=== PATIENT | male | born 1975 ===

== ENCOUNTER 2020-08-20 08:31 | Outpatient (REF) | payer OTHER, SELFPAY ==
[2020-08-20 12:14] LABS: Free T4 (Free Thyroxine) 1.33 ng/dL (0.71-1.85); Thyroid Stimulating Hormone 2.05 mIU/mL (0.32-4.0)
== END 2020-08-20 08:32 | disposition home or self-care (01) ==
LOC: HO.HMGCLDS 08:31
PROVIDERS: PCP Internal Medicine; Visit Provider Internal Medicine
DX: E03.9 Hypothyroidism, unspecified (principal)
CPT/HCPCS: 84439; 84443

== ENCOUNTER → 2020-09-16 11:45 | Outpatient (BNVA) | payer OTHER, SELFPAY | PROVIDERS: PCP Nurse Practitioner Family; Referring Provider Nurse Practitioner Family; Visit Provider Internal Medicine | DX: Z76.89 Persons encountering health services in other specified circumstances (principal) ==

== ENCOUNTER 2020-10-24 08:07 | Outpatient (REF) | payer OTHER, SELFPAY ==
[2020-10-24 11:55] LABS: Alanine Aminotransferase 40 U/L (0-40); Anion Gap 15 (12-20); Aspartate Amino Transferase 30 U/L (5-37); Blood Urea Nitrogen 20 mg/dL (9-16); Calcium 9.2 mg/dL (8.4-10.2); Carbon Dioxide 27 mmol/L (22-29); Chloride 105 mmol/L (96-108); Cholesterol 137 mg/dL; Estimated Glomerular Filt Rate 53; Glucose Fasting 73 mg/dL (60-99); HDL Cholesterol 43 mg/dL; LDL Cholesterol Calculated 68 mg/dl; Sodium 143 mmol/L (135-145); Triglycerides 134 mg/dL
== END 2020-10-24 08:08 | disposition home or self-care (01) ==
LOC: HO.HMGCLDS 08:07
PROVIDERS: PCP Internal Medicine; Visit Provider Internal Medicine
DX: I10 Essential (primary) hypertension (principal); E78.5 Hyperlipidemia, unspecified
CPT/HCPCS: 36415; 80048; 80061; 84450; 84460

== ENCOUNTER → 2020-11-07 15:03 | Outpatient (BNVA) | payer OTHER, SELFPAY | PROVIDERS: PCP Internal Medicine; Visit Provider Internal Medicine | DX: I25.10 Atherosclerotic heart disease of native coronary artery without angina pectoris (principal); I10 Essential (primary) hypertension; E78.5 Hyperlipidemia, unspecified | CPT/HCPCS: 93005 ==

== ENCOUNTER 2021-02-26 09:02 | Outpatient (REF) | payer OTHER, SELFPAY ==
[2021-02-26 12:11] LABS: Alanine Aminotransferase 33 U/L (0-40); Anion Gap 12 (12-20); Aspartate Amino Transferase 28 U/L (5-37); Blood Urea Nitrogen 19 mg/dL (9-16); Calcium 9.3 mg/dL (8.4-10.2); Carbon Dioxide 28 mmol/L (22-29); Chloride 106 mmol/L (96-108); Cholesterol 121 mg/dL; Estimated Glomerular Filt Rate > 60; Glucose Fasting 88 mg/dL (60-99); HDL Cholesterol 40 mg/dL; LDL Cholesterol Calculated 72 mg/dl; Sodium 142 mmol/L (135-145); Triglycerides 48 mg/dL
== END 2021-02-26 09:03 | disposition home or self-care (01) ==
LOC: HO.HMGCLDS 09:02
PROVIDERS: PCP Internal Medicine; Visit Provider Internal Medicine
DX: E78.5 Hyperlipidemia, unspecified (principal); I10 Essential (primary) hypertension; I25.10 Atherosclerotic heart disease of native coronary artery without angina pectoris
CPT/HCPCS: 36415; 80048; 80061; 84450; 84460

== ENCOUNTER 2021-02-28 10:29 | Outpatient (REF) | payer OTHER, SELFPAY ==
[2021-02-28 14:38] LABS: Free T4 (Free Thyroxine) 1.06 ng/dL (0.71-1.85); Thyroid Stimulating Hormone 4.56 uIU/mL (0.32-4.0)
[2021-03-01 10:07] LABS: Thyroid Peroxidase Antibodies 180 IU/mL (<9)
== END 2021-02-28 10:30 | disposition home or self-care (01) ==
LOC: HO.HMGCLDS 10:29
PROVIDERS: PCP Internal Medicine; Visit Provider Internal Medicine
DX: E03.8 Other specified hypothyroidism (principal); E06.3 Autoimmune thyroiditis
CPT/HCPCS: 36415; 84439; 84443; 86376

== ENCOUNTER → 2021-03-13 12:00 | Outpatient (BNVA) | payer OTHER, SELFPAY | PROVIDERS: PCP Internal Medicine; Visit Provider Internal Medicine ==

== ENCOUNTER 2021-05-30 08:18 | Outpatient (REF) | payer OTHER, SELFPAY ==
[2021-05-30 12:15] LABS: Thyroid Stimulating Hormone 4.31 uIU/mL (0.32-4.0)
== END 2021-05-30 08:19 | disposition home or self-care (01) ==
LOC: HO.HMGCLDS 08:18
PROVIDERS: PCP Internal Medicine; Visit Provider Internal Medicine
DX: E03.8 Other specified hypothyroidism (principal); E06.3 Autoimmune thyroiditis
CPT/HCPCS: 36415; 84439; 84443

== ENCOUNTER 2021-08-07 08:40 | Outpatient (REF) | payer OTHER, SELFPAY ==
[2021-08-07 12:10] LABS: Free T4 (Free Thyroxine) 1.48 ng/dL (0.71-1.85); Thyroid Stimulating Hormone 1.78 uIU/mL (0.32-4.0)
== END 2021-08-07 08:41 | disposition home or self-care (01) ==
LOC: HO.HMGCLDS 08:40
PROVIDERS: PCP Internal Medicine; Visit Provider Internal Medicine
DX: E03.8 Other specified hypothyroidism (principal); E06.3 Autoimmune thyroiditis
CPT/HCPCS: 36415; 84439; 84443

== ENCOUNTER 2021-08-26 09:18 | Outpatient (REF) | payer OTHER, SELFPAY ==
[2021-08-26 11:52] LABS: MANUAL DIFF FLAG NO
[2021-08-26 12:01] LABS: Basophils Percent Auto 0.5 % (0-2); Eosinophils Absolute Auto 0.2 X10*3/uL (0.0-0.4); Eosinophils Percent Auto 3.5 % (0-4); Hematocrit 44.9 % (42.0-52.0); Hemoglobin 14.4 g/dl (14.0-18.0); Imm Gran Abs Auto 0.04 X10*3/uL (0.00-0.03); Imm Gran Pct Auto 0.7 % (0.0-0.4); Lymphocytes Absolute Auto 1.5 X10*3/uL (1.2-4.9); Lymphocytes Percent Auto 25.2 % (20-40); Mean Corpuscular HGB Conc 32.1 g/dl (31.0-36.0); Mean Corpuscular Hemoglobin 29.8 pg (27.0-33.0); Mean Corpuscular Volume 92.8 fL (80.0-98.0); Monocytes Absolute Auto 0.6 X10*3/uL (0.1-1.2); Monocytes Percent Auto 9.4 % (2-11); Neutrophils Absolute Auto 3.7 x10*3/uL (2.0-8.3); Neutrophils Percent Auto 60.7 % (45-73); Platelet Count 128 X10*3/uL (160-400); Red Blood Count 4.84 X10*6/uL (4.60-5.80); Red Cell Distribution Width 13.6 % (11.0-16.0); White Blood Count 6.1 X10*3/uL (4.8-10.8)
[2021-08-26 12:17] LABS: Alanine Aminotransferase 46 U/L (0-40); Anion Gap 12 (12-20); Aspartate Amino Transferase 35 U/L (5-37); Blood Urea Nitrogen 15 mg/dL (9-16); Calcium 8.9 mg/dL (8.4-10.2); Carbon Dioxide 26 mmol/L (22-29); Chloride 106 mmol/L (96-108); Cholesterol 139 mg/dL; Estimated Glomerular Filt Rate > 60; Glucose Fasting 88 mg/dL (60-99); HDL Cholesterol 47 mg/dL; LDL Cholesterol Calculated 81 mg/dl; Potassium 4.2 mmol/L (3.3-5.1); Sodium 140 mmol/L (135-145); Triglycerides 58 mg/dL
[2021-08-26 12:40] LABS: Vitamin D 25-OH Total 38.4 ng/mL (>30)
[2021-08-26 12:43] LABS: Folate 9.2 ng/mL (> or = 4.0); Vitamin B12 724 pg/mL (200-900)
[2021-08-29 13:16] LABS: Vitamin B1 7 nmol/L (8-30)
[2021-08-30 16:42] LABS: Testosterone, Total 702 ng/dL (250-1100)
== END 2021-08-26 09:19 | disposition home or self-care (01) ==
LOC: HO.HMGCLDS 09:18
PROVIDERS: PCP Internal Medicine; Visit Provider Internal Medicine
DX: E78.5 Hyperlipidemia, unspecified (principal); I10 Essential (primary) hypertension; I25.10 Atherosclerotic heart disease of native coronary artery without angina pectoris; E03.8 Other specified hypothyroidism; E06.3 Autoimmune thyroiditis; K50.10 Crohn's disease of large intestine without complications
CPT/HCPCS: 36415; 80048; 80061; 82306; 82607; 82746; 84402; 84403; 84425; 84450; 84460; 85025

== ENCOUNTER → 2021-09-03 13:19 | Outpatient (BNVA) | payer OTHER, SELFPAY | PROVIDERS: PCP Internal Medicine; Visit Provider Internal Medicine ==

== ENCOUNTER 2021-11-25 11:57 | Outpatient (REF) | payer OTHER, SELFPAY ==
[2021-11-27 18:47] LABS: TS Negative Control Passed; TS Panel A 0; TS Panel B 0; TS Positive Control Passed; TSpotTB Negative (Negative)
== END 2021-11-25 11:58 | disposition home or self-care (01) ==
LOC: HO.HMGCLDS 11:57
PROVIDERS: PCP Internal Medicine; Visit Provider Internal Medicine
DX: Z11.1 Encounter for screening for respiratory tuberculosis (principal)
CPT/HCPCS: 36415; 86481

== ENCOUNTER 2021-11-28 09:57 | Day surgery (SDC) | payer OTHER, SELFPAY ==
--- NOTE | 2021-11-27 12:41 | HO.ANESPROP2 ---
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 (Acute) Other and unspecified hyperlipidemia (Acute) Essential hypertension (Acute) Coronary artery calcification seen on CAT scan (Acute) Crohn's disease (Acute) Essential hypertension (Acute) Dyslipidemia (Acute) Past Medical History Medical History (Updated 11/21/21 @ 14:55 by Mariela Huynh RN) Coronary artery calcification seen on CAT scan Crohn's disease Dyslipidemia Essential hypertension GERD (gastroesophageal reflux disease) 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 Other and unspecified hyperlipidemia Pseudofolliculitis barbae Thiamine deficiency Family History Family History Father Myocardial infarction CVD (cardiovascular disease) Mother CVD (cardiovascular disease) Brother Hypothyroidism Substance use disorder Brother Substance use disorder Brother Substance use disorder Sister Substance use disorder Surgical History Surgical History (Updated 09/05/21 @ 10:13 by Samantha Elizabeth MD) H/O wisdom tooth extraction Hx of appendectomy Hx of LASIK Social History Social History Housing: House Alcohol intake: current Alcohol intake frequency: holidays/special occasions only Patient Tobacco Use Status: Never used Tobacco e-Cigarette/Vaping Use: Never Used Advance Directives: No Advance Directives Information Provided: Yes service: No Current occupational status: employed Meds Allergies Allergy/AdvReac Type Severity Reaction Status Date / Time No Known Allergies Allergy Verified 11/21/21 15:34 [No Known Allergies*] Home Medications Medication Instructions Recorded Confirmed Last Taken Type folic acid 1 mg tablet 1 mg PO DAILY 09/16/20 11/21/21 Unknown History calcium carbonate 600 mg calcium 600 mg PO DAILY 09/05/21 11/21/21 Unknown History (1,500 mg) tablet (Calcium) cholecalciferol (vitamin D3) 50 50 mcg PO DAILY 09/05/21 11/21/21 Unknown History mcg (2,000 unit) capsule coenzyme Q10 30 mg capsule (CoQ-10) 100 mg PO DAILY cap 09/05/21 11/21/21 Unknown History mecobalamin (vitamin B12) 1,000 1,000 mcg PO DAILY 09/05/21 11/21/21 Unknown History mcg chewable tablet thiamine HCl (vitamin B1) 100 mg 50 mg PO DAILY 09/05/21 11/21/21 Unknown History tablet Exam Exam Date and Time: November 27, 2021 1241 Pertinent Lab Results Pertinent Lab Results: Laboratory Tests 08/26/21 08/26/21 09:47 09:47 WBC 6.1 Hgb 14.4 Hct 44.9 Plt Count 128 L Sodium 140 Potassium 4.2 Chloride 106 Carbon Dioxide 26 BUN 15 Creatinine 1.15 Narrative Narrative: EKG 10/2020 sinus rhythm at 79/Min; no significant ST-T changes and otherwise unremarkable Assessment and Plan Assessment Anesthesia Assessment: Chart Reviewed Documented by User: George Hunter MD 01/28/22 00:28 [facility], [facility] Past Medical History Medical History (Updated 11/21/21 @ 14:55 by Mariela Huynh RN) Coronary artery calcification seen on CAT scan Crohn's disease Dyslipidemia Essential hypertension GERD (gastroesophageal reflux disease) 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 Other and unspecified hyperlipidemia Pseudofolliculitis barbae Thiamine deficiency Family History Family History Father Myocardial infarction CVD (cardiovascular disease) Mother CVD (cardiovascular disease) Brother Hypothyroidism Substance use disorder Brother Substance use disorder Brother Substance use disorder Sister Substance use disorder Family history of problems with anesthesia: No Surgical History Surgical History (Updated 09/05/21 @ 10:13 by Samantha Elizabeth MD) H/O wisdom tooth extraction Hx of appendectomy Hx of LASIK History of Problems with Anesthesia: No Social History Social History Housing: House Alcohol intake: current Alcohol intake frequency: holidays/special occasions only Patient Tobacco Use Status: Never used Tobacco e-Cigarette/Vaping Use: Never Used Advance Directives: No Advance Directives Information Provided: Yes service: No Current occupational status: employed Meds Allergies Allergy/AdvReac Type Severity Reaction Status Date / Time No Known Allergies Allergy Verified 11/21/21 15:34 [No Known Allergies*] Home Medications Medication Instructions Recorded Confirmed Last Taken Type folic acid 1 mg tablet 1 mg PO DAILY 09/16/20 11/21/21 Unknown History calcium carbonate 600 mg calcium 600 mg PO DAILY 09/05/21 11/21/21 Unknown History (1,500 mg) tablet (Calcium) cholecalciferol (vitamin D3) 50 50 mcg PO DAILY 09/05/21 11/21/21 Unknown History mcg (2,000 unit) capsule coenzyme Q10 30 mg capsule (CoQ-10) 100 mg PO DAILY cap 09/05/21 11/21/21 Unknown History mecobalamin (vitamin B12) 1,000 1,000 mcg PO DAILY 09/05/21 11/21/21 Unknown History mcg chewable tablet thiamine HCl (vitamin B1) 100 mg 50 mg PO DAILY 09/05/21 11/21/21 Unknown History tablet Exam Airway Mallampati Class: II Loose/Missing/Broken Teeth: Yes (Chipped front , bridge , ) Heart: S1 S2 Lungs: b/l breath sounds Assessment and Plan Assessment Anesthesia Assessment: Anesthesia Plan Discussed Final Anesthetic Review Family History of Problems with Anesthesia: No History of Problems with Anesthesia: No NPO: Yes ASA Class: II Final Preanesthetic Review: Meds/Allgs Chart Reviewed, Consent Obtained/Reviewed and Anes Risks/Benef Reviewed Patient Risk: Intermediate Procedure Risk: Intermediate Anesthetic Plan Anesthetic Plan: MAC: Disposition: Standard PACU
[2021-11-28 10:08] VITALS: BP 119/81; PULSE 80; RESP 16; TEMP 36.9; O2SAT 99; BMI 24.8
--- NOTE | 2021-11-28 10:32 | MHC.SHP ---
Pre-Procedural Eval Section A Date of Service: 11/28/21 The patient is an INPATIENT: No Changes since office visit: No Cold of Flu in the past 2 weeks, No New Medical Problems, No Changes in Medication and No Patient answered all questions The History & Physical has been completed within 30 days and I have reviewed it.: Yes Section B Chief Complaint: crohns Allergies: Allergies Allergy/AdvReac Type Severity Reaction Status Date / Time No Known Allergies Allergy Verified 11/21/21 15:34 [No Known Allergies*] Plan I have reviewed the history and physical and performed a pertinent physical examination on my patient. No changes have occurred unless specified.
[2021-11-28 11:12] VITALS: BP 103/65; PULSE 83; RESP 18; TEMP 36.2; O2SAT 98
--- NOTE | 2021-11-28 11:23 | P.BOP_ITS ---
Brief Operative Note Date of Service: 11/28/21 Pre-op diagnosis: crohns Post-op diagnosis: same Procedure: colonoscopy Surgeon: Braulio Rosario Anesthesia: MAC Was an Accounts Receivable Administrator used for this Procedure?: No Estimated blood loss (mL): 5 Pathology: other (bxs ti and colon) Condition: stable Disposition: PACU
[2021-11-28 11:27] VITALS: BP 110/75; PULSE 75; RESP 16; TEMP 36.2; O2SAT 97
--- NOTE | 2021-11-28 13:08 | OP_ITS ---
SURGEON: Braulio Rosario MD INDICATIONS: Crohn disease. PREOPERATIVE DIAGNOSIS: POSTOPERATIVE DIAGNOSIS: PROCEDURE PERFORMED: Colonoscopy to the terminal ileum with biopsy. ESTIMATED BLOOD LOSS: COMPLICATIONS: ANESTHESIA: ASSISTANTS: SPECIMENS: MEDICATIONS: Monitored anesthesia care. DESCRIPTION OF PROCEDURE: History and physical were performed. The risks and benefits of the procedure were explained to the patient. Informed consent was obtained. The patient was placed in the left lateral decubitus position. A digital rectal exam was performed and was found to be normal. The Olympus pediatric video colonoscope was introduced into the rectum and advanced to the cecum without difficulty. The cecum was identified by transillumination, palpation, and identification of ileocecal valve. Examination was performed. The scope was removed. He tolerated the procedure well and was taken to recovery in stable condition. FINDINGS: The terminal ileum was examined and appeared normal. Approximately 20 cm was examined without any evidence of active Crohn disease. Biopsies were obtained from the terminal ileum. The colonic mucosa appeared within normal limits without evidence of masses or ulcers. There was no evidence of endoscopic activity of Crohn disease. The mucosa appeared normal with some minor nonspecific erythema in the rectum. Retroflexed examination was normal. There was mild sigmoid diverticulosis. IMPRESSION: Normal colonoscopy. RECOMMENDATION: Follow up the biopsy results. Screening colonoscopy is recommended in 10 years for average risk individuals. MD KARINE Chan/RICARDO / [id number] MTDD
== END 2021-11-28 12:25 | disposition home or self-care (01) ==
PROVIDERS: PCP Internal Medicine; Visit Provider Internal Medicine Gastroenterology
PROC: 0DJD8ZZ Inspection of Lower Intestinal Tract, Via Natural or Artificial Opening Endoscopic (ICD-10-PCS; CPT 45378; principal; 2021-11-28 11:20)
DX: K50.119 Crohn's disease of large intestine with unspecified complications (principal); K57.30 Diverticulosis of large intestine without perforation or abscess without bleeding; E06.3 Autoimmune thyroiditis; E03.9 Hypothyroidism, unspecified; I10 Essential (primary) hypertension; I25.10 Atherosclerotic heart disease of native coronary artery without angina pectoris; D69.3 Immune thrombocytopenic purpura; Z79.899 Other long term (current) drug therapy
CPT/HCPCS: 45380; 88305

== ENCOUNTER 2022-10-09 11:11 | Outpatient (REF) | payer OTHER, SELFPAY ==
[2022-10-09 15:02] LABS: Alanine Aminotransferase 21 U/L (0-40); Anion Gap 13 (12-20); Aspartate Amino Transferase 23 U/L (5-37); Blood Urea Nitrogen 14 mg/dL (9-16); Calcium 8.9 mg/dL (8.4-10.2); Carbon Dioxide 26 mmol/L (22-29); Chloride 107 mmol/L (96-108); Cholesterol 134 mg/dL; Estimated Glomerular Filt Rate > 60; Free T4 (Free Thyroxine) 1.17 ng/dL (0.71-1.85); Glucose Fasting 87 mg/dL (60-99); HDL Cholesterol 26 mg/dL; LDL Cholesterol Calculated 89 mg/dl; Potassium 4.1 mmol/L (3.3-5.1); Sodium 142 mmol/L (135-145); Thyroid Stimulating Hormone 6.07 uIU/mL (0.32-4.0); Triglycerides 99 mg/dL; Vitamin D 25-OH Total 33.4 ng/mL (>30)
[2022-10-09 15:05] LABS: Folate 12.3 ng/mL (> or = 4.0); Vitamin B12 1380 pg/mL (200-900)
[2022-10-14 13:33] LABS: Vitamin B1 28 nmol/L (8-30)
== END 2022-10-09 11:12 | disposition home or self-care (01) ==
LOC: HO.HMGCLDS 11:11
PROVIDERS: PCP Internal Medicine; Visit Provider Internal Medicine
DX: E06.3 Autoimmune thyroiditis (principal); E51.9 Thiamine deficiency, unspecified; E78.5 Hyperlipidemia, unspecified; I10 Essential (primary) hypertension; I25.10 Atherosclerotic heart disease of native coronary artery without angina pectoris; K50.10 Crohn's disease of large intestine without complications; E03.8 Other specified hypothyroidism
CPT/HCPCS: 36415; 80048; 80061; 82306; 82607; 82746; 84425; 84439; 84443; 84450; 84460

== ENCOUNTER 2022-10-14 13:57 | Outpatient (REF) | payer OTHER, SELFPAY ==
[2022-10-14 16:38] LABS: MANUAL DIFF FLAG NO
[2022-10-14 17:09] LABS: Basophils Absolute Auto 0.1 X10*3/uL (0.0-0.2); Basophils Percent Auto 0.7 % (0-2); Eosinophils Absolute Auto 0.1 X10*3/uL (0.0-0.4); Eosinophils Percent Auto 1.1 % (0-4); Hematocrit 44.5 % (42.0-52.0); Hemoglobin 14.6 g/dl (14.0-18.0); Imm Gran Pct Auto 1.4 % (0.0-0.4); Lymphocytes Absolute Auto 2.1 X10*3/uL (1.2-4.9); Lymphocytes Percent Auto 29.1 % (20-40); Mean Corpuscular HGB Conc 32.8 g/dl (31.0-36.0); Mean Corpuscular Volume 88.5 fL (80.0-98.0); Mean Platelet Volume 12.5 fL (9.4-12.4); Monocytes Absolute Auto 0.7 X10*3/uL (0.1-1.2); Monocytes Percent Auto 9.8 % (2-11); Neutrophils Absolute Auto 4.2 x10*3/uL (2.0-8.3); Neutrophils Percent Auto 57.9 % (45-73); Platelet Count 145 X10*3/uL (160-400); Red Blood Count 5.03 X10*6/uL (4.60-5.80); Red Cell Distribution Width 12.9 % (11.0-16.0); White Blood Count 7.3 X10*3/uL (4.8-10.8)
== END 2022-10-14 13:58 | disposition home or self-care (01) ==
LOC: HO.HMGCLDS 13:57
PROVIDERS: PCP Internal Medicine; Visit Provider Internal Medicine
DX: D69.3 Immune thrombocytopenic purpura (principal); E06.3 Autoimmune thyroiditis; K50.90 Crohn's disease, unspecified, without complications; E03.8 Other specified hypothyroidism
CPT/HCPCS: 36415; 85025

== ENCOUNTER 2022-12-16 07:59 | Outpatient (REF) | payer OTHER, SELFPAY ==
[2022-12-16 12:51] LABS: Folate 9.4 ng/mL (> or = 4.0); Free T4 (Free Thyroxine) 1.39 ng/dL (0.71-1.85); Thyroid Stimulating Hormone 0.95 uIU/mL (0.32-4.0); Vitamin B12 768 pg/mL (200-900)
[2022-12-17 13:18] LABS: Thyroid Peroxidase Antibodies 182 IU/mL (<9)
== END 2022-12-16 08:00 | disposition home or self-care (01) ==
LOC: HO.HMGCLDS 07:59
PROVIDERS: PCP Internal Medicine; Visit Provider Internal Medicine
DX: E03.8 Other specified hypothyroidism (principal); E06.3 Autoimmune thyroiditis; D69.3 Immune thrombocytopenic purpura; K50.90 Crohn's disease, unspecified, without complications
CPT/HCPCS: 36415; 82607; 82746; 84439; 84443; 86376

== ENCOUNTER 2022-12-23 10:15 | Outpatient (REF) | payer OTHER, SELFPAY ==
[2022-12-23 15:40] LABS: Syphilis Screen Nonreactive (Nonreactive)
[2022-12-25 05:41] LABS: HIV AB/AG Nonreactive (Nonreactive); HIV Num 1 0.08 S/CO (0.00-0.99); ~HepC Num1 0.19 S/CO (0.00-0.79); ~Hepatitis C Antibody Nonreactive (Nonreactive)
== END 2022-12-23 10:16 | disposition home or self-care (01) ==
LOC: HO.HMGCLDS 10:15
PROVIDERS: PCP Internal Medicine; Visit Provider Nurse Practitioner Family
DX: Z11.4 Encounter for screening for human immunodeficiency virus [HIV] (principal); Z20.2 Contact with and (suspected) exposure to infections with a predominantly sexual mode of transmission
CPT/HCPCS: 36415; 86780; 86803; 87389

== ENCOUNTER → 2023-04-05 09:52 | Outpatient (BNVA) | payer OTHER, SELFPAY | PROVIDERS: PCP Internal Medicine; Visit Provider Nurse Practitioner Family ==

== ENCOUNTER → 2023-04-09 14:33 | Outpatient (BNVA) | payer OTHER, SELFPAY | PROVIDERS: PCP Internal Medicine; Visit Provider Urology ==

== ENCOUNTER 2023-05-21 09:01 | Outpatient (REF) | payer OTHER, SELFPAY ==
[2023-05-21 11:17] LABS: MANUAL DIFF FLAG NO
[2023-05-21 11:41] LABS: Basophils Percent Auto 0.4 % (0-2); Eosinophils Absolute Auto 0.2 X10*3/uL (0.0-0.4); Eosinophils Percent Auto 2.8 % (0-4); Hematocrit 47.7 % (42.0-52.0); Hemoglobin 15.5 g/dl (14.0-18.0); Imm Gran Abs Auto 0.07 X10*3/uL (0.00-0.03); Imm Gran Pct Auto 0.9 % (0.0-0.4); Lymphocytes Absolute Auto 2.2 X10*3/uL (1.2-4.9); Lymphocytes Percent Auto 28.6 % (20-40); Mean Corpuscular HGB Conc 32.5 g/dl (31.0-36.0); Mean Corpuscular Hemoglobin 29.5 pg (27.0-33.0); Mean Corpuscular Volume 90.9 fL (80.0-98.0); Mean Platelet Volume 12.8 fL (9.4-12.4); Monocytes Absolute Auto 0.7 X10*3/uL (0.1-1.2); Monocytes Percent Auto 9.3 % (2-11); Neutrophils Absolute Auto 4.4 x10*3/uL (2.0-8.3); Platelet Count 144 X10*3/uL (160-400); Red Blood Count 5.25 X10*6/uL (4.60-5.80); Red Cell Distribution Width 12.8 % (11.0-16.0); White Blood Count 7.6 X10*3/uL (4.8-10.8)
[2023-05-21 15:21] LABS: Alanine Aminotransferase 27 U/L (0-40); Anion Gap 14 (12-20); Aspartate Amino Transferase 26 U/L (5-37); Blood Urea Nitrogen 13 mg/dL (9-16); Calcium 9.4 mg/dL (8.4-10.2); Carbon Dioxide 23 mmol/L (22-29); Chloride 108 mmol/L (96-108); Cholesterol 138 mg/dL; Estimated Glomerular Filt Rate > 60; Glucose Fasting 91 mg/dL (60-99); HDL Cholesterol 42 mg/dL; LDL Cholesterol Calculated 85 mg/dl; Potassium 4.1 mmol/L (3.3-5.1); Sodium 141 mmol/L (135-145); Thyroid Stimulating Hormone 1.54 uIU/mL (0.32-4.0); Triglycerides 55 mg/dL; Vitamin D 25-OH Total 44.7 ng/mL (>30)
[2023-05-21 15:45] LABS: Folate 9.9 ng/mL (> or = 4.0); Vitamin B12 816 pg/mL (200-900)
[2023-05-26 15:52] LABS: Vitamin B1 72 nmol/L (8-30)
== END 2023-05-21 09:02 | disposition home or self-care (01) ==
LOC: HO.HMGCLDS 09:01
PROVIDERS: PCP Internal Medicine; Visit Provider Internal Medicine
DX: E51.9 Thiamine deficiency, unspecified (principal); N48.9 Disorder of penis, unspecified; D69.3 Immune thrombocytopenic purpura; E03.8 Other specified hypothyroidism; E06.3 Autoimmune thyroiditis; I10 Essential (primary) hypertension; E78.5 Hyperlipidemia, unspecified; K50.90 Crohn's disease, unspecified, without complications
CPT/HCPCS: 36415; 80048; 80061; 82306; 82607; 82746; 84425; 84439; 84443; 84450; 84460; 85025

== ENCOUNTER 2023-05-27 09:00 | Outpatient (AMB) | payer OTHER, SELFPAY ==
[2023-05-27 09:01] VITALS: BP 136/88; PULSE 83; O2SAT 96; BMI 29.7
--- NOTE | 2023-05-27 09:01 | A.OFFPC_ITS ---
Vital Signs 05/27/23 09:01 Height 5 ft 10 in Weight 207 lb BMI 29.7 BP 136/88 Blood Pressure Location Rt brachial Position Sitting Pulse 83 Pulse Source Pulse Oximeter Pulse Oximetry (%) 96 Oxygen Delivery Method Room Air Intake Visit Reasons: Annual Physical Intake Note: Pt is here today for his PE Allergies No Known Allergies [No Known Allergies*] Allergy (Verified 05/27/23 09:31) Medication List - Last Reconciled 05/27/23 by Samantha Elizabeth MD calcium carbonate (Calcium) 600 mg PO DAILY cholecalciferol (vitamin D3) 50 mcg PO DAILY coenzyme Q10 (Co Q-10) 100 mg PO DAILY folic acid 1 mg PO DAILY levothyroxine (Synthroid) 137 mcg PO DAILY losartan 50 mg PO DAILY magnesium citrate 200 mg PO DAILY omega [id number]-fish oil 500-100-1,000 mg 1 cap PO DAILY rosuvastatin 40 mg PO DAILY selenium 200 mcg PO DAILY thiamine HCl (vitamin B1) 50 mg PO DAILY Tobacco use date assessed: 05/27/23 Dental Screening Dental Screen Date: 05/27/23 Did you have a dental visit in the last 12 months?: No Was dental information given to patient?: Patient has dentist HPI Annual Physical HPI Details 8-year-old male with hypertension, chronic ITP, currently symptomatic, 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 He has been feeling well except for intermittent episodes of lightheadedness usually triggered when he gets up after bending down or with sudden changes in position. This would last several seconds and resolved spontaneously. Denies any accompanying chest pain, no headache, no nausea or palpitations reported. 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 Other and unspecified hyperlipidemia Penile lesion Personal history of COVID-19 Positional lightheadedness Pseudofolliculitis barbae Thiamine deficiency Surgical History H/O wisdom tooth extraction Hx of appendectomy Hx of LASIK Family History Father Myocardial infarction CVD (cardiovascular disease) Mother CVD (cardiovascular disease) Brother Hypothyroidism Substance use disorder Brother Substance use disorder Brother Substance use disorder Sister Substance use disorder Social History Housing: House Alcohol intake: current Alcohol intake frequency: holidays/special occasions only Patient Tobacco Use Status: Never used Tobacco e-Cigarette/Vaping Use: Never Used service: No Current occupational status: employed Sexual orientation: Lesbian/Jeter/Homosexual Cognitive needs: No Hearing needs: No Vision needs: Yes Questionnaire PHQ-9 Over the last 2 weeks, how often have you been bothered by any of the following problems? 1. Little interest or pleasure in doing things: not at all 2. Feeling down, depressed, or hopeless: not at all 3. Trouble falling or staying asleep, or sleeping too much: not at all 4. Feeling tired or having little energy: not at all 5. Poor appetite or overeating: not at all 6. Feeling bad about yourself - or that you are a failure or have let yourself or your family down: not at all 7. Trouble concentrating on things, such as reading the newspaper or watching television: not at all 8. Moving or speaking so slowly that other people could have noticed. Or the opposite - being so fidgety or restless that you have been moving around a lot more than usual: not at all 9. Thoughts that you would be better off or of hurting yourself in some way: not at all Total score: 0 Depression Screening Interpretation: Negative 87780 - PHQ-9 Billing: Yes Source: Developed by Drs. Manuel Rodriguez, Cortney Carl, Davidson Brody and colleagues, with an educational jonathon from [employer]. Thrive Questionnaire Date Thrive assessed: 05/27/23 I am a: Patient What is your living situation today?: I have a steady place to live Within the past 12 months, did the food you bought not last and you didn't have the money to get more?: Never true Within the past 12 months, did you worry whether your food would run out before you got money to buy more?: Never true Do you have trouble paying for medicines?: No Do you have trouble getting transportation to medical appointments?: No Do you have trouble paying your heating and electricity bill?: No Do you have trouble taking care of your child, family member or friend?: No Do you have trouble with day-to-day activities such as bathing, preparing meals, shopping, managing finances, etc.?: No Are you currently unemployed and looking for a job?: No Are you interested in more education?: No AUDIT C Alcohol Use Questionnaire (AUDIT-C) 1. How often do you have a drink containing alcohol?: Monthly or less 2. How many drinks containing alcohol do you have on a typical day when you are drinking?: 1 or 2 3. How often do you have six or more drinks on one occasion?: Never Total Score: 1 LANE-[address] L[address]-7 Date LANE - 7 assessed: 05/27/23 Feeling nervous, anxious, or on edge: 0 = Not at all Not being able to stop or control worryin = Not at all Worrying too much about different things: 0 = Not at all Trouble relaxin = Not at all Being so restless that it is hard to sit still: 0 = Not at all Becoming easily annoyed or irritable: 0 = Not at all Feeling afraid as if something awful might happen: 0 = Not at all Total LANE-7 score (0-4 normal; 5-9 mild; 10-14 moderate; 15-21 severe): 0 Source: Developed by Drs. Manuel Rodriguez, Cortney Carl, Davidson Brody and colleagues, with an educational jonathon from [employer]. LANE-[address] L[address]-7 Assessment Tool: LANE-7 Assessment 21195 Review of Systems Const Denies body aches, Denies chills, Denies fever(s), Denies lethargy, Denies weight gain and Denies weight loss Eyes Reports no additional complaints ENT Reports no additional complaints Card Reports as per HPI, Reports no additional complaints, Denies syncope, Denies irregular heart rhythm and Denies dyspnea Resp Denies cough and Denies dyspnea GI Denies abdominal pain and Denies heartburn Reports as per HPI and Denies change in libido Musc Reports no additional complaints Skin/Breast Denies lesions, Denies rash and Denies unusual bruising Neuro Reports as per HPI, Denies Neuro-related abnormal movements and Denies syncope Psych Reports no additional complaints and Denies change in libido Endo Reports no additional complaints and Denies change in libido Ricky/Lymph Denies easy bleeding and Denies easy bruising Aller/Immun Reports no additional complaints Physical exam (Primary Care) Vital Signs: Last Vital Signs Pulse 83 05/27/23 09:01 BP 136/88 05/27/23 09:01 Pulse Ox 96 05/27/23 09:01 Oxygen Delivery Method Room Air 05/27/23 09:01 BMI result Body Mass Index 29.7 Tobacco/Smoking Status: Tobacco use Status Tobacco use date assessed 05/27/23 05/27/23 09:12 Patient Tobacco Use Status Never used Tobacco 05/27/23 09:12 e-Cigarette/Vaping Use Never Used 05/27/23 09:12 PHQ-9: PHQ-9 Score PHQ-9: Total score 0 05/27/23 09:53 Depression Screening Interpretation: Negative Thrive Assessment: Date of Thrive Assessment Date Thrive assessed 05/27/23 05/27/23 09:12 Const General: cooperative, healthy appearing, no acute distress and alert Orientation/consciousness: patient oriented x3 HENMT Ears: external ears normal General nose exam: Normal external nose present and No nasal discharge present Face and sinus: Yes face symmetric Mouth: Normal oral and palatal mucosa present and moist mucous membranes Eyes General: appearance normal, both eyes and all related structures Neck Neck: Yes full ROM and Yes no lymphadenopathy Thyroid: Thyroid normal Lymphatic: no lymphadenopathy noted Chest Chest palpation & inspection: normal inspection of the chest and normal palpation of entire chest wall Resp Effort & Inspection: normal respiratory effort and able to speak in complete sentences Auscultation: clear to auscultation bilaterally Cardio Jugular venous distension: no JVD Rate: regular rate Rhythm: regular rhythm Heart sounds: S1 normal heart sound present and S2 normal heart sound present GI Inspection: Yes normal to inspection Palpation (GI): Soft to palpation Auscultation: normal bowel sounds General: Yes no CVA tenderness Male General Exam: Yes normal external exam Back/Spine/Pelvis Back: no CVA tenderness and No back tenderness Skin Other: Multiple tattoos all over his body Neuro General: patient oriented x3, gait normal, tone normal, moves all extremities, Normal light touch and pain sensation, no focal motor deficits and CN's II-XI intact bilaterally Gait exam (Neuro): Normal gait present Motor exam (neuro): 5/5 motor strength present throughout Extrem General: Yes normal to inspection, Yes full ROM, Yes no pedal edema and Yes normal gait Psych Appearance: grossly normal and well kempt Mental Status: mental status grossly normal Speech and movement: Normal speech and movement present Affect: normal affect Attitude: cooperative Thought process: Normal thought process present Results Reviewed Results Reviewed: ENTERED: 05/21/[address]: ORDERED: CBC Auto Diff Test Result Flag Reference Site WBC 7.6 4.8-10.8 X10*3/uL RBC 5.25 4.60-5.80 X10*6/uL HGB 15.5 14.0-18.0 g/dl HCT 47.7 42.0-52.0 % MCV 90.9 80.0-98.0 fL MCH 29.5 27.0-33.0 pg MCHC 32.5 31.0-36.0 g/dl RDW 12.8 11.0-16.0 % PLT 144 L 160-400 X10*3/uL MPV 12.8 H 9.4-12.4 fL Neut Pct Auto 58.0 45-73 % ImGran Pct Auto 0.9 H 0.0-0.4 % Lymp Pct Auto 28.6 20-40 % [place] Pct Auto 9.3 2-11 % Eos Pct Auto 2.8 0-4 % Baso Pct Auto 0.4 0-2 % NRBC Pct Auto 0.0 0.0-0.2 /100WBC ANC Neut Abs # 4.4 2.0-8.3 x10*3/uL ImGran Abs Auto 0.07 H 0.00-0.03 X10*3/uL Lymph Abs Auto 2.2 1.2-4.9 X10*3/uL [place] Abs Auto 0.7 0.1-1.2 X10*3/uL Eos Abs Auto 0.2 0.0-0.4 X10*3/uL Baso Abs Auto 0.0 0.0-0.2 X10*3/uL NRBC Abs Auto 0.000 0.0-0.012 X10*3/uL ENTERED: 05/21/23 [facility] : ORDERED: Met Prof Fast, AST, ALT, Lipid Panel, Vitamin D 25-OH, TSH Test Result Flag Reference Site Sodium 141 135-145 mmol/L Potassium 4.1 3.3-5.1 mmol/L CL 108 96-108 mmol/L CO2 23 22-29 mmol/L Gap 14 12-20 BUN 13 9-16 mg/dL Creat 0.92 0.5-1.4 mg/dL EGFR > 60 NOTE: For -[place] individuals, multiply the result by 1.210. Chronic Kidney Disease: Estimated GFR < 60 mL/min/1.73m2 Severe Kidney Disease: Estimated GFR < 15 mL/min/1.73m2 FBS 91 60-99 mg/dL CA 9.4 8.4-10.2 mg/dL AST (GOT) 26 5-37 U/L ALT (GPT) 27 0-40 U/L Triglyceride 55 mg/dL Desirable Triglyceride: less than 150 mg/dL Borderline High Triglyceride 150-199 mg/dL High Triglyceride: 200-499 mg/dL Very High Triglyceride: greater than or equal to 5OO mg/dL Chol 138 mg/dL Desirable Cholesterol: less than 200 mg/dL Borderline High Cholesterol: 200-239 mg/dL High Cholesterol: greater than 239 mg/dL LDL Calculated 85 mg/dl Desirable LDL: less than 100 mg/dL Near Optimal/Above Optimal LDL: 110-129 mg/dL Borderline High LDL: 130-159 mg/dL High LDL: 160-189 mg/dL Very High LDL: greater than or equal to 190 mg/dL HDL 42 mg/dL Desirable HDL: greater than 40 mg/dL Note: This HDL assay may give artificially low results in patients with liver disease. Vit D 25-OH Tot 44.7 >30 ng/mL Health Based Reference Values* < 20 ng/mL Deficient 20-30 ng/mL Insufficient > 30 ng/mL Sufficient *Allan RODRIGUEZ. N Engl J Med. 2007;357:266-280 Care must be taken in interpreting Vitamin D results from different laboratories and methodologies. Published data demonstrated that results from patients undergoing hemodialysis may show a negative bias when tested with various automated 25-OH vitamin D assays when compared to LC-MS/MS. When testing samples from patients whose predominant form of Vitamin D is Vitamin D2, such as patients receiving Vitamin D2 supplementation, results that are subtherapeutic should be confirmed with another method such as LC-MS/MS. TSH 3rd Gen. 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 Continue with current medication. Reinforced importance of following a low sodium diet, getting regular exercise, and lowering stress levels. (4) Dyslipidemia: Code(s): E78.5 - Hyperlipidemia, unspecified Plan: Reviewed recent fasting lipid profile with patient with levels within normal limits . Continue with rosuvastatin 40 mg daily and [place] 3 fatty acid supplements , in addition to adherence to low-cholesterol diet and regular exercise, at least 30 minutes 3 to 4 times a week. Advised patient to make healthy food choices, eat more fruits, vegetables, whole grains, wild caught fish and low-fat dairy. Limit amount of meat and fried or fatty food products, as well as processed foods and fast foods. Follow-up scheduled with repeat fasting lipid panel in 6 months. (5) Crohn's disease: Comment: Sees Dr. Rosario Code(s): K50.90 - Crohn's disease, unspecified, without complications Qualifiers: Digestive disease complication type: without complication Gastrointestinal tract location: large intestine Qualified Code(s): K50.10 - Crohn's disease of large intestine without complications Plan: Stable and currently symptomatic, followed by Dr. Rosario Orders: Orders PT Evaluation and Treatment 05/27/23 R42 - Dizziness and giddiness Alanine Aminotransferase 6 Months E03.8 - Other specified hypothyroidism, E06.3 - Autoimmune thyroiditis, E51.9 - Thiamine deficiency, unspecified, E78.5 - Hyperlipidemia, unspecified, I10 - Essential (primary) hypertension, I25.10 - Atherosclerotic heart disease of [place] coronary artery without angina pectoris, K50.90 - Crohn's disease, unspecified, without complications Aspartate Amino Transferase 6 Months E03.8 - Other specified hypothyroidism, E06.3 - Autoimmune thyroiditis, E51.9 - Thiamine deficiency, unspecified, E78.5 - Hyperlipidemia, unspecified, I10 - Essential (primary) hypertension, I25.10 - Atherosclerotic heart disease of [place] coronary artery without angina pectoris, K50.90 - Crohn's disease, unspecified, without complications Vitamin B12 and Folate 6 Months E03.8 - Other specified hypothyroidism, E06.3 - Autoimmune thyroiditis, E51.9 - Thiamine deficiency, unspecified, E78.5 - Hyperlipidemia, unspecified, I10 - Essential (primary) hypertension, I25.10 - Atherosclerotic heart disease of [place] coronary artery without angina pectoris, K50.90 - Crohn's disease, unspecified, without complications Basic Metabolic Panel Fasting 6 Months E03.8 - Other specified hypothyroidism, E06.3 - Autoimmune thyroiditis, E51.9 - Thiamine deficiency, unspecified, E78.5 - Hyperlipidemia, unspecified, I10 - Essential (primary) hypertension, I25.10 - Atherosclerotic heart disease of [place] coronary artery without angina pectoris, K50.90 - Crohn's disease, unspecified, without complications Lipid Panel 6 Months E03.8 - Other specified hypothyroidism, E06.3 - Autoimmune thyroiditis, E51.9 - Thiamine deficiency, unspecified, E78.5 - Hyperlipidemia, unspecified, I10 - Essential (primary) hypertension, I25.10 - Atherosclerotic heart disease of [place] coronary artery without angina pectoris, K50.90 - Croh n's disease, unspecified, without complications Magnesium 6 Months E03.8 - Other specified hypothyroidism, E06.3 - Autoimmune thyroiditis, E51.9 - Thiamine deficiency, unspecified, E78.5 - Hyperlipidemia, unspecified, I10 - Essential (primary) hypertension, I25.10 - Atherosclerotic heart disease of [place] coronary artery without angina pectoris, K50.90 - Crohn's disease, unspecified, without complications Free T4 (Free Thyroxine) 6 Months E03.8 - Other specified hypothyroidism, E03.9 - Hypothyroidism, unspecified, E06.3 - Autoimmune thyroiditis, E51.9 - Thiamine deficiency, unspecified, E78.5 - Hyperlipidemia, unspecified, I10 - Essential (primary) hypertension, I25.10 - Atherosclerotic heart disease of [place] coronary artery without angina pectoris, K50.90 - Crohn's disease, unspecified, without complications Thyroid Stimulating Hormone 6 Months E03.8 - Other specified hypothyroidism, E06.3 - Autoimmune thyroiditis, E51.9 - Thiamine deficiency, unspecified, E78.5 - Hyperlipidemia, unspecified, I10 - Essential (primary) hypertension, I25.10 - Atherosclerotic heart disease of [place] coronary artery without angina pectoris, K50.90 - Crohn's disease, unspecified, without complications Vitamin B1 6 Months E03.8 - Other specified hypothyroidism, E06.3 - Autoimmune thyroiditis, E51.9 - Thiamine deficiency, unspecified, E78.5 - Hyperlipidemia, unspecified, I10 - Essential (primary) hypertension, I25.10 - Atherosclerotic heart disease of [place] coronary artery without angina pectoris, K50.90 - Crohn's disease, unspecified, without complications Vitamin D 25-OH Total 6 Months E03.8 - Other specified hypothyroidism, E06.3 - Autoimmune thyroiditis, E51.9 - Thiamine deficiency, unspecified, E78.5 - Hyperlipidemia, unspecified, I10 - Essential (primary) hypertension, I25.10 - Atherosclerotic heart disease of [place] coronary artery without angina pectoris, K50.90 - Crohn's disease, unspecified, without complications Coding Level of Care Code Est Pt Prev Care 40-64y([id number]) Diagnoses Positional lightheadedness R42 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
== END 2023-05-27 10:30 | disposition home or self-care (01) ==
PROVIDERS: PCP Internal Medicine; Visit Provider Internal Medicine
DX: Z00.00 Encounter for general adult medical examination without abnormal findings (principal); E03.8 Other specified hypothyroidism; E06.3 Autoimmune thyroiditis; I10 Essential (primary) hypertension; K50.10 Crohn's disease of large intestine without complications; R42 Dizziness and giddiness; E78.5 Hyperlipidemia, unspecified
CPT/HCPCS: 99396

== ENCOUNTER 2023-06-03 11:46 | Outpatient (REF) | payer OTHER, SELFPAY ==
[2023-06-03 11:56] VITALS: BP 145/99; PULSE 84; RESP 16; TEMP 36.8; O2SAT 97; BMI 29.4
--- NOTE | 2023-06-03 14:13 | W.PM.OPN ---
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 Iatrogenic urethrocutaneous fistula as a result at the level of penile sulcus. Here for repair. Is aware of risks for possible re-formation. Procedure: After informed consent was verified the patient was brought to the operating room and placed in a supine position. Anesthesia was administered per protocol. The patient was prepped and draped in a sterile fashion. Safety pause time-out was performed. Penis was prepped with Betadine and draped. Local anesthetic was infiltrated around edges of the urethrocutaneous fistula. Repair was performed following guidelines from [place]. Essentially this is an inversion of urethrocutaneous fistula without amputation and multilayered closure. A 4-0 Vicryl suture was passed down the urethra and externalized out of the fistula tract. Using 4-0 Vicryl the edges of the fistula tract were approximated on the external side. Using this suture as a tractor sharp dissection was performed around the fistula tract creating a dissected tunnel. Dissection was taken releasing inflamed tissue from the fistula tract. Once the base of the fistula tract had been reached the fistula tract with inverted and pulled toward the meatal opening. Interrupted 4-0 Vicryl was were then used to create a layer across the inverted tunnel. A 2nd layer was then used to close tissue above the urethral layer. Skin was closed with interrupted Vicryl. Patient informed not to get the area wet for 2 days. Pathology: [] Drains: []
== END 2023-06-03 11:47 | disposition home or self-care (01) ==
LOC: HO.MS 11:46
PROVIDERS: PCP Internal Medicine; Visit Provider Urology
PROC: (CPT 54440; principal; 2023-06-03 12:10)
DX: N36.0 Urethral fistula (principal)
CPT/HCPCS: 53520

== ENCOUNTER → 2023-06-03 11:46 | Outpatient (BNV) | payer OTHER, SELFPAY | PROVIDERS: PCP Internal Medicine; Visit Provider Urology | DX: N36.0 Urethral fistula (principal) | CPT/HCPCS: 53520 ==

== ENCOUNTER 2023-07-09 13:21 | Outpatient (AMB) | payer OTHER, SELFPAY ==
--- NOTE | 2023-07-09 13:25 | MHC.OFFVIS ---
Intake Intake Visit Reasons: one month (fistula repair) Intake Note: pt here for post op followup meds - sulfamethoxazole pharm - [facility] allergies - NKA Allergies environmental allergies Adverse Reaction (Verified 07/09/23 13:27) Itchy Eyes HPI HPI Comments History of Present Illness Details Toney is a very pleasant male. He is a patient of Dr. Elizabeth. 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 Other and unspecified hyperlipidemia Essential hypertension Coronary artery calcification seen on CAT scan Pseudofolliculitis barbae GERD (gastroesophageal reflux disease) Crohn's disease Dyslipidemia Surgical History Hx of LASIK H/O wisdom tooth extraction Hx of appendectomy Family History Father Myocardial infarction CVD (cardiovascular disease) Mother CVD (cardiovascular disease) Brother Hypothyroidism Substance use disorder Brother Substance use disorder Brother Substance use disorder Sister Substance use disorder Social History Housing: House Alcohol intake: current Alcohol intake frequency: holidays/special occasions only Patient Tobacco Use Status: Never used Tobacco e-Cigarette/Vaping Use: Never Used service: No Current occupational status: employed Sexual orientation: Lesbian/Jeter/Homosexual Cognitive needs: No Hearing needs: No Vision needs: Yes Review of Systems Const Denies chills and Denies fever(s) Card Reports no additional complaints and Denies syncope Resp Denies cough GI Denies abdominal pain and Denies heartburn Reports as per HPI and Denies change in libido Neuro Denies syncope Psych Denies change in libido Endo Denies change in libido Physical Exam Const General: cooperative, healthy appearing, comfortable and no acute distress Orientation/consciousness: patient oriented x3 HEENT Face and sinus: Yes normal facial exam Mouth: moist mucous membranes Neck Neck: Yes normal visual inspection, Yes full ROM and Yes trachea midline Chest Chest palpation & inspection: normal inspection of the chest Resp Effort & Inspection: normal respiratory effort, able to speak in complete sentences and no respiratory distress GI Inspection: Yes normal to inspection Back/Spine/Pelvis Cervical Spine: normal cervical lordosis Thoracic/Lumbar Spine: thoracic and lumbar spine normal to inspection Skin General skin exam: no rashes or lesions noted Neuro General: patient oriented x3, gait normal, tone normal and moves all extremities Extrem General: Yes normal to inspection and Yes capillary refill normal Assessment & Plan Assessment & Plan (1) Urethrocutaneous fistula: Code(s): N36.0 - Urethral fistula Plan P.r.n. Patient Instructions: Imaging studies, laboratory and physical exam results were discussed and reviewed in detail. No major barriers to patient understanding were identified. An opportunity to ask questions regarding the treatment plan was provided. All questions were answered. The patient expressed understanding and agreement with the above treatment plan. The patient is aware they should contact our office by phone for worsening of their current condition or the appearance of new urologic symptoms. Compliance is encouraged with any medications and followup testing that is ordered. It is a privilege to participate in the urologic care of your patient. If you have any questions or concerns regarding treatment for the above conditions, or other urologic issues, please do not hesitate to contact me. The office telephone contact is [phone]. This note is constructed using voice recognition software. While every effort has been made to ensure accuracy molecular biology professor errors may have been included. Yours sincerely, Dr Dennis Rojas MD, [facility] - Urology Providers of Expert, Compassionate Care for the Genitourinary System Coding Level of Care Code Est Pt Level 3 (69548) Diagnoses Urethrocutaneous fistula N36.0
== END 2023-07-09 14:09 | disposition home or self-care (01) ==
PROVIDERS: PCP Internal Medicine; Visit Provider Urology
DX: N36.0 Urethral fistula (principal)
CPT/HCPCS: 99024

== ENCOUNTER → 2023-07-09 13:21 | Outpatient (BNVA) | payer OTHER, SELFPAY | PROVIDERS: PCP Internal Medicine; Visit Provider Urology ==

== ENCOUNTER 2023-12-01 10:17 | Outpatient (REF) | payer OTHER, SELFPAY ==
[2023-12-01 13:43] LABS: Alanine Aminotransferase 33 U/L (0-40); Anion Gap 10 (12-20); Aspartate Amino Transferase 37 U/L (5-37); Blood Urea Nitrogen 14 mg/dL (9-16); Calcium 9.1 mg/dL (8.4-10.2); Carbon Dioxide 27 mmol/L (22-29); Chloride 109 mmol/L (96-108); Cholesterol 128 mg/dL (<200); Estimated Glomerular Filt Rate > 60; Glucose Fasting 91 mg/dL (60-99); HDL Cholesterol 40 mg/dL (>40); LDL Cholesterol Calculated 75 mg/dL (<100); Magnesium 2.3 mg/dL (1.6-2.6); Potassium 3.9 mmol/L (3.3-5.1); Sodium 142 mmol/L (135-145); Triglycerides 67 mg/dL (<150)
[2023-12-01 14:02] LABS: Free T4 (Free Thyroxine) 1.02 ng/dL (0.71-1.85); Thyroid Stimulating Hormone 5.11 uIU/mL (0.32-4.0); Vitamin D 25-OH Total 26.4 ng/mL (>30)
[2023-12-01 14:13] LABS: Folate 8.4 ng/mL (> or = 4.0); Vitamin B12 629 pg/mL (200-900)
[2023-12-07 15:18] LABS: Vitamin B1 8 nmol/L (8-30)
== END 2023-12-01 10:18 | disposition home or self-care (01) ==
LOC: HO.HMGCLDS 10:17
PROVIDERS: PCP Internal Medicine; Visit Provider Internal Medicine
DX: E51.9 Thiamine deficiency, unspecified (principal); E03.8 Other specified hypothyroidism; E06.3 Autoimmune thyroiditis; I10 Essential (primary) hypertension; I25.10 Atherosclerotic heart disease of native coronary artery without angina pectoris; E78.5 Hyperlipidemia, unspecified; K50.90 Crohn's disease, unspecified, without complications
CPT/HCPCS: 36415; 80048; 80061; 82306; 82607; 82746; 83735; 84425; 84439; 84443; 84450; 84460

== ENCOUNTER 2023-12-02 09:46 | Outpatient (AMB) | payer OTHER, SELFPAY ==
--- NOTE | 2023-12-02 10:17 | A.OFFPC_ITS ---
Vital Signs 12/02/23 10:18 Height 5 ft 10 in Weight 208 lb BMI 29.8 BP 122/72 Blood Pressure Location Lt brachial Position Sitting Pulse 86 Pulse Source Pulse Oximeter Pulse Oximetry (%) 96 Oxygen Delivery Method Room Air Intake Visit Reasons: 6 month fu Intake Note: Pt is here today for his 6 months f/u Allergies environmental allergies Adverse Reaction (Verified 12/02/23 16:39) Itchy Eyes Medication List - Last Reconciled 12/02/23 by Samantha Elizabeth MD cholecalciferol (vitamin D3) 50 mcg PO DAILY cholecalciferol (vitamin D3) 1,250 mcg PO QWEEK 3 months losartan 50 mg PO DAILY mupirocin 2% 1 appl topical BID 5 days rosuvastatin 40 mg PO DAILY Synthroid (levothyroxine) 150 mcg PO DAILY NS Tobacco use date assessed: 12/02/23 Dental Screening Dental Screen Date: 12/02/23 Did you have a dental visit in the last 12 months?: Yes Did you have a dental problem in the last 6 months where you did not have access to dental care?: No Was dental information given to patient?: Patient has dentist HPI 6 month fu HPI Details 48-year-old male here today for his foll ow-up. He has acquired hypothyroidism currently on Synthroid 137 mcg daily. Recent TSH was mildly elevated with normal free T4. Patient however complains of feeling very tired all the time and unable to lose weight despite exercising and following recommended diet. He also has hyperlipidemia currently on rosuvastatin 40 mg daily, with last fasting lipids within normal limits. Takes losartan 50 mg daily for blood pressure control. Complains of painful cracks in external nares which has been present now for the last several days. The patient thinks that it might be caused by him wearing a mask at work all the time. His recent fasting labs also showed presence of low vitamin-D level, even with taking cholecalciferol 50 mcg daily. He has chronic ITP, latest CBC showing low platelet count , currently asymptomatic. 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 Other and unspecified hyperlipidemia Essential hypertension Coronary artery calcification seen on CAT scan Pseudofolliculitis barbae GERD (gastroesophageal reflux disease) Crohn's disease Dyslipidemia Surgical History Hx of LASIK H/O wisdom tooth extraction Hx of appendectomy Family History Father Myocardial infarction CVD (cardiovascular disease) Mother CVD (cardiovascular disease) Brother Hypothyroidism Substance use disorder Brother Substance use disorder Brother Substance use disorder Sister Substance use disorder Social History Housing: House Alcohol intake: current Alcohol intake frequency: holidays/special occasions only Patient Tobacco Use Status: Never used Tobacco e-Cigarette/Vaping Use: Never Used service: No Current occupational status: employed Sexual orientation: Lesbian/Jeter/Homosexual Cognitive needs: No Hearing needs: No Vision needs: Yes Questionnaire Thrive Questionnaire Date Thrive assessed: 05/27/23 I am a: Patient What is your living situation today?: I have a steady place to live Within the past 12 months, did the food you bought not last and you didn't have the money to get more?: Never true Within the past 12 months, did you worry whether your food would run out before you got money to buy more?: Never true Please select the resources that you would like help with: None THRIVE Score: 0 AUDIT C Alcohol Use Questionnaire (AUDIT-C) 1. How often do you have a drink containing alcohol?: Never 2. How many drinks containing alcohol do you have on a typical day when you are drinking?: 1 or 2 3. How often do you have six or more drinks on one occasion?: Never Total Score: 0 LANE-[address] L[address]-7 Date LANE - 7 assessed: 05/27/23 Feeling nervous, anxious, or on edge: 0 = Not at all Not being able to stop or control worryin = Not at all Worrying too much about different things: 0 = Not at all Trouble relaxin = Not at all Being so restless that it is hard to sit still: 0 = Not at all Becoming easily annoyed or irritable: 0 = Not at all Feeling afraid as if something awful might happen: 0 = Not at all Total LANE-7 score (0-4 normal; 5-9 mild; 10-14 moderate; 15-21 severe): 0 Source: Developed by Drs. Manuel Rodriguez, Cortney Carl, Davidson Brody and colleagues, with an educational jonathon from [employer]. Review of Systems Const Denies body aches, Denies chills, Denies fever(s) and Denies weight loss Eyes Reports no additional complaints ENT Reports no additional complaints Card Denies syncope, Denies irregular heart rhythm and Denies dyspnea Resp Denies cough and Denies dyspnea GI Denies abdominal pain and Denies heartburn Musc Reports no additional complaints Skin/Breast Reports as per HPI, Denies rash and Denies unusual bruising Neuro Denies syncope Endo Reports no additional complaints Ricky/Lymph Denies easy bleeding and Denies easy bruising Aller/Immun Reports no additional complaints Physical exam (Primary Care) Vital Signs: Last Vital Signs Pulse 86 12/02/23 10:18 BP 122/72 12/02/23 10:18 Pulse Ox 96 12/02/23 10:18 Oxygen Delivery Method Room Air 12/02/23 10:18 BMI result Body Mass Index 29.8 Tobacco/Smoking Status: Tobacco use Status Tobacco use date assessed 12/02/23 12/02/23 10:22 Patient Tobacco Use Status Never used Tobacco 12/02/23 10:22 e-Cigarette/Vaping Use Never Used 12/02/23 10:22 Thrive Assessment: Date of Thrive Assessment Date Thrive assessed 05/27/23 12/02/23 10:22 Const General: cooperative, healthy appearing, no acute distress and alert Orientation/consciousness: patient oriented x3 HENMT Ears: external ears normal General nose exam: Normal external nose present and No nasal discharge present Face and sinus: Yes face symmetric Mouth: Normal oral and palatal mucosa present and moist mucous membranes Eyes General: appearance normal, both eyes and all related structures Neck Neck: Yes full ROM and Yes no lymphadenopathy Thyroid: Thyroid normal (Nonpalpable) Lymphatic: no lymphadenopathy noted Resp Effort & Inspection: normal respiratory effort and able to speak in complete sentences Auscultation: clear to auscultation bilaterally Cardio Rate: regular rate Rhythm: regular rhythm Heart sounds: S1 normal heart sound present and S2 normal heart sound present GI Inspection: Yes normal to inspection Palpation (GI): Soft to palpation Auscultation: normal bowel sounds Skin Other: Multiple tattoos all over his body Neuro General: patient oriented x3, gait normal, tone normal, moves all extremities, no focal motor deficits and CN's II-XI intact bilaterally Gait exam (Neuro): Normal gait present Extrem General: Yes normal to inspection, Yes full ROM, Yes no pedal edema and Yes normal gait Assessment and Plan Assessment & Plan (1) 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 Lab ordered for thyroid peroxidase antibody and free T3 (2) Crohn's disease: Comment: Sees Dr. Rosario Code(s): K50.90 - Crohn's disease, unspecified, without complications Qualifiers: Digestive disease complication type: without complication Gastrointestinal tract location: large intestine Qualified Code(s): K50.10 - Crohn's disease of large intestine without complications Plan: Check another CBC level (3) Chronic ITP (idiopathic thrombocytopenia): Comment: Currently being seen at [facility] office by Dr. Kristy Meadows Code(s): D69.3 - Immune thrombocytopenic purpura Plan: Currently symptomatic, will check CBC (4) Thiamine deficiency: Code(s): E51.9 - Thiamine deficiency, unspecified Plan: Thiamine level still pending (5) Dyslipidemia: Code(s): E78.5 - Hyperlipidemia, unspecified Plan: Fasting lipids are within normal limits, continue with current dose of rosuvastatin 40 mg daily, reinforced importance of following recommended diet and getting regular exercise. (6) Fatigue: Code(s): R53.83 - Other fatigue Qualifiers: Fatigue type: chronic, unspecified Qualified Code(s): R53.82 - Chronic fatigue, unspecified Plan: Will check thyroid peroxidase antibody, free T3, CBC. His vitamin B12 is within normal limits, vitamin-D is low, prescription sent for cholecalciferol 06748 units per capsule to take once a week for the next 3 months, and once finished taking prescription to continue taking [id number] vitamin-D 3 at 2000 units daily (7) Vitamin D deficiency: Code(s): E55.9 - Vitamin D deficiency, unspecified Plan: prescription sent for cholecalciferol 20773 units per capsule to take once a week for the next 3 months, and once finished taking prescription to continue taking [id number]-[id number] vitamin-D 3 at 2000 units daily Orders: Orders Thyroid Peroxidase Antibodies Today E03.8 - Other specified hypothyroidism, E06.3 - Autoimmune thyroiditis, K50.90 - Crohn's disease, unspecified, without complications, R53.83 - Other fatigue Triiodothyronine T3 Free Today E03.8 - Other specified hypothyroidism, E06.3 - Autoimmune thyroiditis, K50.90 - Crohn's disease, unspecified, without complications, R53.83 - Other fatigue Complete Blood Count Auto Diff Today E03.8 - Other specified hypothyroidism, E06.3 - Autoimmune thyroiditis, K50.90 - Crohn's disease, unspecified, without complications, R53.83 - Other fatigue Medications: New Synthroid (levothyroxine) 150 mcg PO DAILY 30 tabs 5RF NS mupirocin 2% 1 appl topical BID 5 days 15 grams 0RF cholecalciferol (vitamin D3) 1,250 mcg PO QWEEK 3 months 13 caps 0RF Refilled rosuvastatin 40 mg PO DAILY 90 tabs 4RF losartan 50 mg PO DAILY 90 tabs 4RF Discontinued levothyroxine (Synthroid) PAU, no substitutions , take 1 tablet every day , and take 1 and a half tablet on wednesday Discontinued Reason: Doctor's Order 137 mcg PO DAILY 30 days 30 tabs 12RF E03.8 - Other specified hypothyroidism, E06.3 - Autoimmune thyroiditis Coding Level of Care Code Est Pt Level 4 (25671) Diagnoses 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
[2023-12-02 10:18] VITALS: BP 122/72; PULSE 86; O2SAT 96; BMI 29.8
== END 2023-12-02 10:53 | disposition home or self-care (01) ==
PROVIDERS: PCP Internal Medicine; Visit Provider Internal Medicine
DX: E03.8 Other specified hypothyroidism (principal); E06.3 Autoimmune thyroiditis; K50.10 Crohn's disease of large intestine without complications; D69.3 Immune thrombocytopenic purpura; E51.9 Thiamine deficiency, unspecified; E78.5 Hyperlipidemia, unspecified; R53.82 Chronic fatigue, unspecified; E55.9 Vitamin D deficiency, unspecified
CPT/HCPCS: 99214

== ENCOUNTER 2023-12-02 10:54 | Outpatient (REF) | payer OTHER, SELFPAY ==
[2023-12-02 13:02] LABS: MANUAL DIFF FLAG NO
[2023-12-02 13:23] LABS: Basophils Percent Auto 0.6 % (0-2); Eosinophils Absolute Auto 0.2 X10*3/uL (0.0-0.4); Eosinophils Percent Auto 2.4 % (0-4); Hematocrit 41.2 % (42.0-52.0); Hemoglobin 13.8 g/dl (14.0-18.0); Imm Gran Abs Auto 0.03 X10*3/uL (0.00-0.03); Imm Gran Pct Auto 0.4 % (0.0-0.4); Lymphocytes Absolute Auto 2.2 X10*3/uL (1.2-4.9); Lymphocytes Percent Auto 33.2 % (20-40); Mean Corpuscular HGB Conc 33.5 g/dl (31.0-36.0); Mean Corpuscular Hemoglobin 30.2 pg (27.0-33.0); Mean Corpuscular Volume 90.2 fL (80.0-98.0); Mean Platelet Volume 12.7 fL (9.4-12.4); Monocytes Absolute Auto 0.7 X10*3/uL (0.1-1.2); Monocytes Percent Auto 9.7 % (2-11); Neutrophils Absolute Auto 3.6 x10*3/uL (2.0-8.3); Neutrophils Percent Auto 53.7 % (45-73); Platelet Count 138 X10*3/uL (160-400); Red Blood Count 4.57 X10*6/uL (4.60-5.80); Red Cell Distribution Width 13.1 % (11.0-16.0); White Blood Count 6.7 X10*3/uL (4.8-10.8)
[2023-12-03 08:03] LABS: Triiodothyronine T3 Free 3.6 pg/mL (2.3-4.2)
[2023-12-03 11:03] LABS: Thyroid Peroxidase Antibodies 95 IU/mL (<9)
== END 2023-12-02 10:55 | disposition home or self-care (01) ==
LOC: HO.HMGCLDS 10:54
PROVIDERS: PCP Internal Medicine; Visit Provider Internal Medicine
DX: E03.8 Other specified hypothyroidism (principal); E06.3 Autoimmune thyroiditis; K50.90 Crohn's disease, unspecified, without complications; R53.83 Other fatigue
CPT/HCPCS: 36415; 84481; 85025; 86376

== ENCOUNTER 2024-03-07 06:45 | Outpatient (REF) | payer OTHER, SELFPAY ==
[2024-03-07 10:33] LABS: MANUAL DIFF FLAG NO
[2024-03-07 10:42] LABS: Basophils Percent Auto 0.6 % (0-2); Eosinophils Absolute Auto 0.2 X10*3/uL (0.0-0.4); Eosinophils Percent Auto 3.1 % (0-4); Hematocrit 41.7 % (42.0-52.0); Hemoglobin 13.6 g/dl (14.0-18.0); Imm Gran Abs Auto 0.02 X10*3/uL (0.00-0.03); Imm Gran Pct Auto 0.3 % (0.0-0.4); Lymphocytes Absolute Auto 2.4 X10*3/uL (1.2-4.9); Lymphocytes Percent Auto 37.2 % (20-40); Mean Corpuscular HGB Conc 32.6 g/dl (31.0-36.0); Mean Corpuscular Hemoglobin 29.4 pg (27.0-33.0); Mean Corpuscular Volume 90.3 fL (80.0-98.0); Mean Platelet Volume 13.3 fL (9.4-12.4); Monocytes Absolute Auto 0.7 X10*3/uL (0.1-1.2); Monocytes Percent Auto 10.2 % (2-11); Neutrophils Absolute Auto 3.1 x10*3/uL (2.0-8.3); Neutrophils Percent Auto 48.6 % (45-73); Platelet Count 121 X10*3/uL (160-400); Red Blood Count 4.62 X10*6/uL (4.60-5.80); Red Cell Distribution Width 12.6 % (11.0-16.0); White Blood Count 6.5 X10*3/uL (4.8-10.8)
[2024-03-07 11:12] LABS: Iron 67 mcg/dL (45-160); Percent Iron Saturation 27 % (15-50); Total Iron Binding Capacity 247 mcg/dL (228-428); Unsaturated Iron Binding 180 ug/dL
[2024-03-07 11:23] LABS: Free T4 (Free Thyroxine) 1.15 ng/dL (0.71-1.85); Thyroid Stimulating Hormone 3.76 uIU/mL (0.32-4.0)
[2024-03-08 18:13] LABS: Thyroid Peroxidase Antibodies 155 IU/mL (<9)
== END 2024-03-07 06:46 | disposition home or self-care (01) ==
LOC: HO.HMGCLDS 06:45
PROVIDERS: PCP Internal Medicine; Visit Provider Internal Medicine
DX: R53.82 Chronic fatigue, unspecified (principal); D69.3 Immune thrombocytopenic purpura; E03.8 Other specified hypothyroidism; E06.3 Autoimmune thyroiditis; K50.10 Crohn's disease of large intestine without complications
CPT/HCPCS: 36415; 83540; 84439; 84443; 85025; 86376

== ENCOUNTER 2024-05-25 08:09 | Outpatient (AMB) | payer OTHER, SELFPAY ==
[2024-05-25 08:13] VITALS: BP 114/74; PULSE 88; O2SAT 98; BMI 26.9
--- NOTE | 2024-05-25 08:13 | A.OFFPC_ITS ---
Vital Signs 05/25/24 08:13 Height 5 ft 10 in Weight 187 lb 4 oz BMI 26.9 BP 114/74 Blood Pressure Location Rt brachial Position Sitting Pulse 88 Pulse Source Pulse Oximeter Pulse Oximetry (%) 98 Oxygen Delivery Method Room Air Intake Visit Reasons: PE Intake Note: Patient is here today for his annual physical Allergies environmental allergies Adverse Reaction (Verified 05/25/24 08:21) Itchy Eyes Medication List - Last Reconciled 05/25/24 by Samantha Elizabeth MD cholecalciferol (vitamin D3) 50 mcg PO DAILY ferrous sulfate 325 mg PO DAILY losartan 50 mg PO DAILY rosuvastatin 40 mg PO DAILY semaglutide (weight loss) (Wegovy) 0.5 mg subcut QWEEK Synthroid (levothyroxine) 150 mcg PO DAILY NS Tobacco use date assessed: 05/25/24 Dental Screening Dental Screen Date: 05/25/24 Did you have a dental visit in the last 12 months?: Yes Did you have a dental problem in the last 6 months where you did not have access to dental care?: No Was dental information given to patient?: Patient has dentist HPI PE HPI Details 49-year-old male with hypertension, synchronizer travis ITP, 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 She has been feeling well, with no complaints at present time. He started taking Wegovy approximately 6 weeks, prescribed to him by Dr. Nolasco, and has lost approximately 17 lbs since starting medication, has been feeling well, with no adverse effects noted from it. Has been going to the gym and has been eating a healthy diet. Fell off a ladder in February, injured his left knee but did not get it seen complains now of pain on anterior aspect of his left knee on flexion. 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 Other and unspecified hyperlipidemia Essential hypertension Coronary artery calcification seen on CAT scan Pseudofolliculitis barbae GERD (gastroesophageal reflux disease) Crohn's disease Dyslipidemia Surgical History Hx of LASIK H/O wisdom tooth extraction Hx of appendectomy Family History Father Myocardial infarction CVD (cardiovascular disease) Mother CVD (cardiovascular disease) Brother Hypothyroidism Substance use disorder Brother Substance use disorder Brother Substance use disorder Sister Substance use disorder Social History Housing: House Alcohol intake: current Alcohol intake frequency: holidays/special occasions only Patient Tobacco Use Status: Never used Tobacco e-Cigarette/Vaping Use: Never Used service: No Current occupational status: employed Sexual orientation: Lesbian/Jeter/Homosexual Cognitive needs: No Hearing needs: No Vision needs: Yes Questionnaire PHQ-9 Over the last 2 weeks, how often have you been bothered by any of the following problems? 1. Little interest or pleasure in doing things: not at all 2. Feeling down, depressed, or hopeless: not at all 3. Trouble falling or staying asleep, or sleeping too much: not at all 4. Feeling tired or having little energy: several days 5. Poor appetite or overeating: not at all 6. Feeling bad about yourself - or that you are a failure or have let yourself or your family down: not at all 7. Trouble concentrating on things, such as reading the newspaper or watching television: several days 8. Moving or speaking so slowly that other people could have noticed. Or the opposite - being so fidgety or restless that you have been moving around a lot more than usual: not at all 9. Thoughts that you would be better off or of hurting yourself in some way: not at all Total score: 2 Depression Screening Interpretation: Negative Depression Screening Done: Yes 48859 - PHQ-9 Billing: Yes Source: Developed by Drs. Manuel Rodriguez, Cortney Carl, Davidson Brody and colleagues, with an educational jonathon from [employer]. Thrive Questionnaire Date Thrive assessed: 05/25/24 I am a: Patient What is your living situation today?: I have a steady place to live Within the past 12 months, did the food you bought not last and you didn't have the money to get more?: Never true Within the past 12 months, did you worry whether your food would run out before you got money to buy more?: Never true Do you have trouble paying for medicines?: No Do you have trouble getting transportation to medical appointments?: No Do you have trouble paying your heating and electricity bill?: No Do you have trouble taking care of your child, family member or friend?: I choose not to answer this question Do you have trouble with day-to-day activities such as bathing, preparing meals, shopping, managing finances, etc.?: No Are you currently unemployed and looking for a job?: No Are you interested in more education?: No Please select the resources that you would like help with: Housing/Custodial Currently or been in a relationship where the following occur: No concerns reported THRIVE Score: 0 AUDIT C Alcohol Use Questionnaire (AUDIT-C) 1. How often do you have a drink containing alcohol?: Monthly or less 2. How many drinks containing alcohol do you have on a typical day when you are drinking?: 1 or 2 3. How often do you have six or more drinks on one occasion?: Never Total Score: 1 Score Reviewed/Action Taken: Yes LANE-[address] L[address]-7 Date LANE - 7 assessed: 05/25/24 Feeling nervous, anxious, or on edge: 0 = Not at all Not being able to stop or control worryin = Not at all Worrying too much about different things: 0 = Not at all Trouble relaxin = Not at all Being so restless that it is hard to sit still: 0 = Not at all Becoming easily annoyed or irritable: 0 = Not at all Feeling afraid as if something awful might happen: 0 = Not at all Total LANE-7 score (0-4 normal; 5-9 mild; 10-14 moderate; 15-21 severe): 0 Source: Developed by Drs. Manuel Rodriguez, Cortney Carl, Davidson Brody and colleagues, with an educational jonathon from [employer]. LANE-[address] L[address]-7 Assessment Tool: LANE-7 Assessment 27346 Review of Systems Const Denies body aches, Denies chills, Denies fever(s) and Denies weight loss Eyes Reports blurry vision (With reading) ENT Reports no additional complaints Card Denies chest pain, Denies syncope, Denies irregular heart rhythm and Denies dyspnea Resp Denies cough and Denies dyspnea GI Denies abdominal pain and Denies heartburn Reports no additional complaints Musc Reports no additional complaints Skin/Breast Denies rash and Denies unusual bruising Neuro Denies syncope Psych Reports no additional complaints Endo Reports no additional complaints Ricky/Lymph Denies easy bleeding and Denies easy bruising Aller/Immun Reports no additional complaints Physical exam (Primary Care) Vital Signs: Last Vital Signs Pulse 88 05/25/24 08:13 BP 114/74 05/25/24 08:13 Pulse Ox 98 05/25/24 08:13 Oxygen Delivery Method Room Air 05/25/24 08:13 BMI result Body Mass Index 26.9 Tobacco/Smoking Status: Tobacco use Status Tobacco use date assessed 05/25/24 05/25/24 08:20 Patient Tobacco Use Status Never used Tobacco 05/25/24 08:17 e-Cigarette/Vaping Use Never Used 05/25/24 08:17 PHQ-9: PHQ-9 Score PHQ-9: Total score 2 05/25/24 08:20 Depression Screening Interpretation: Negative Thrive Assessment: Date of Thrive Assessment Date Thrive assessed 05/25/24 05/25/24 08:20 Currently or been in a relationship where the following occur: No concerns reported Const General: cooperative, healthy appearing, no acute distress and alert Orientation/consciousness: patient oriented x3 HENMT Ears: external ears normal General nose exam: Normal external nose present and No nasal discharge present Face and sinus: Yes face symmetric Mouth: Normal oral and palatal mucosa present and moist mucous membranes Eyes General: appearance normal, both eyes and all related structures Neck Neck: Yes full ROM and Yes no lymphadenopathy Thyroid: Thyroid normal (Nonpalpable) Lymphatic: no lymphadenopathy noted Chest Chest palpation & inspection: normal inspection of the chest Resp Effort & Inspection: normal respiratory effort and able to speak in complete sentences Auscultation: clear to auscultation bilaterally Cardio Rate: regular rate Rhythm: regular rhythm Heart sounds: S1 normal heart sound present and S2 normal heart sound present GI Inspection: Yes normal to inspection Palpation (GI): Soft to palpation Auscultation: normal bowel sounds General: Yes no CVA tenderness Male General Exam: Yes normal external exam Back/Spine/Pelvis Back: no CVA tenderness Skin Other: Multiple tattoos all over his body, has a skin tag on left preauricular area Neuro General: patient oriented x3, gait normal, tone normal, moves all extremities, no focal motor deficits and CN's II-XI intact bilaterally Gait exam (Neuro): Normal gait present Extrem General: Yes normal to inspection, Yes full ROM, Yes no pedal edema and Yes normal gait Psych Appearance: grossly normal and well kempt Mental Status: mental status grossly normal Speech and movement: Normal speech and movement present Affect: normal affect Attitude: cooperative Thought process: Normal thought process present Thought content: Normal thought content present Results Reviewed Results Reviewed: Laboratory Tests 12/02/23 03/07/24 10:57 06:52 WBC 6.5 Hgb 13.6 L Hct 41.7 L MCV 90.3 MCH 29.4 RDW 12.6 Plt Count 121 L TSH 3.76 Free T4 1.15 Free T3 3.6 Assessment and Plan Assessment & Plan (1) Annual visit for general adult medical examination with abnormal findings: Code(s): Z00.01 - Encounter for general adult medical examination with abnormal findings Plan: Will check appropriate labs. Recommended dental visit every 6 months and regular eye exams, at least every 2 years. Take adequate calcium in diet and vitamin-D 3 at 2000 IU per cap once a day, in addition to weight-bearing exercises to help maintain good muscle tone and weight control. Instructed to do self testicular exam check for any mass. Up-to-date with all his vaccinations but is due for a tetanus diphtheria booster. Again it at the pharmacy. Colonoscopy screening up-to-date done 11/28/[address] Rosario (2) Dyslipidemia: Code(s): E78.5 - Hyperlipidemia, unspecified Plan: Fasting lipid panel ordered, continue with adherence to healthy eating habits, regular exercises, goes to the gym regularly (3) Crohn's disease: Comment: Sees Dr. Rosario Code(s): K50.90 - Crohn's disease, unspecified, without complications Qualifiers: Digestive disease complication type: without complication Gastrointestinal tract location: large intestine Qualified Code(s): K50.10 - Crohn's disease of large intestine without complications Plan: Asymptomatic, followed by Dr. Rosario, had a negative colonoscopy screening done 11/28/2021 (4) Essential hypertension: Code(s): I10 - Essential (primary) hypertension Plan: Blood pressure at goal of less than 130/80. Continue with losartan 50 mg daily Reinforced importance of following a low sodium diet, getting regular exercise, and lowering stress levels. 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 Kristy Meadows Code(s): D69.3 - Immune thrombocytopenic purpura Plan: Currently asymptomatic, will check CBC and iron profile (7) Vitamin D deficient osteomalacia: Code(s): M83.9 - Adult osteomalacia, unspecified Plan: Will check vitamin-D level (8) Left anterior knee pain: Code(s): M25.562 - Pain in left knee Plan: X-ray of left knee ordered, referred to [facility] per patient request (9) Overweight (BMI 25.0-29.9): Code(s): E66.3 - Overweight Plan: Was started by another provider on Wegovy, now at 0.5 mg subcutaneously given once a week, has been losing weight, and tolerating medication well Orders: Orders Lipid Panel Today D69.3 - Immune thrombocytopenic purpura, E03.8 - Other specified hypothyroidism, E06.3 - Autoimmune thyroiditis, E78.5 - Hyperlipidemia, unspecified, I10 - Essential (primary) hypertension, K50.10 - Crohn's disease of large intestine without complications, M83.9 - Adult osteomalacia, unspecified, Z00.01 - Encounter for general adult medical examination with abnormal findings Vitamin D 25-OH Total Today D69.3 - Immune thrombocytopenic purpura, E03.8 - Other specified hypothyroidism, E06.3 - Autoimmune thyroiditis, E78.5 - Hyperl ipidemia, unspecified, I10 - Essential (primary) hypertension, K50.10 - Crohn's disease of large intestine without complications, M83.9 - Adult osteomalacia, unspecified, Z00.01 - Encounter for general adult medical examination with abnormal findings Thyroid Stimulating Hormone Today D69.3 - Immune thrombocytopenic purpura, E03.8 - Other specified hypothyroidism, E06.3 - Autoimmune thyroiditis, E78.5 - Hyperlipidemia, unspecified, I10 - Essential (primary) hypertension, K50.10 - Crohn's disease of large intestine without complications, M83.9 - Adult osteomalacia, unspecified, Z00.01 - Encounter for general adult medical examination with abnormal findings Free T4 (Free Thyroxine) Today D69.3 - Immune thrombocytopenic purpura, E03.8 - Other specified hypothyroidism, E06.3 - Autoimmune thyroiditis, E78.5 - Hyperlipidemia, unspecified, I10 - Essential (primary) hypertension, K50.10 - Crohn's disease of large intestine without complications, M83.9 - Adult osteomalacia, unspecified, Z00.01 - Encounter for general adult medical examination with abnormal findings IRON PROFILE Today D69.3 - Immune thrombocytopenic purpura, E03.8 - Other specified hypothyroidism, E06.3 - Autoimmune thyroiditis, E78.5 - Hyperlipidemia, unspecified, I10 - Essential (primary) hypertension, K50.10 - Crohn's disease of large intestine without complications, M83.9 - Adult osteomalacia, unspecified, Z00.01 - Encounter for general adult medical examination with abnormal findings Complete Blood Count Auto Diff Today D69.3 - Immune thrombocytopenic purpura, E03.8 - Other specified hypothyroidism, E06.3 - Autoimmune thyroiditis, E78.5 - Hyperlipidemia, unspecified, I10 - Essential (primary) hypertension, K50.10 - Crohn's disease of large intestine without complications, M83.9 - Adult osteomalacia, unspecified, Z00.01 - Encounter for general adult medical examination with abnormal findings Basic Metabolic Panel Fasting Today D69.3 - Immune thrombocytopenic purpura, E03.8 - Other specified hypothyroidism, E06.3 - Autoimmune thyroiditis, E78.5 - Hyperlipidemia, unspecified, I10 - Essential (primary) hypertension, K50.10 - Crohn's disease of large intestine without complications, M83.9 - Adult osteomalacia, unspecified, Z00.01 - Encounter for general adult medical ex amination with abnormal findings XR knee LT 4V Today M25.562 - Pain in left knee Referrals Orthopedics Referral M25.562 - Pain in left knee, Z91.81 - History of falling Medications: Refilled Synthroid (levothyroxine) 150 mcg PO DAILY 30 tabs 5RF NS Coding Level of Care Code Est Pt Prev Care 40-64y(23241) Diagnoses Annual visit for general adult medical examination with abnormal findings Z00.01 Dyslipidemia E78.5 Crohn's disease of large intestine without complication K50.10 Digestive disease complication type: without complication Gastrointestinal tract location: large intestine Essential hypertension I10 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
== END 2024-05-25 08:52 | disposition home or self-care (01) ==
PROVIDERS: PCP Internal Medicine; Visit Provider Internal Medicine
DX: Z00.00 Encounter for general adult medical examination without abnormal findings (principal); K50.10 Crohn's disease of large intestine without complications; D69.3 Immune thrombocytopenic purpura; E78.5 Hyperlipidemia, unspecified; I10 Essential (primary) hypertension; E03.8 Other specified hypothyroidism; E06.3 Autoimmune thyroiditis; M83.9 Adult osteomalacia, unspecified; M25.562 Pain in left knee; E66.3 Overweight
CPT/HCPCS: 99396

== ENCOUNTER 2024-05-25 08:40 | Outpatient (REF) | payer OTHER, SELFPAY ==
--- NOTE | ~2024-05-25 | XR_ITS ---
EXAMINATION: XR KNEE, LEFT CLINICAL INFORMATION: Left knee pain COMPARISON: None available. TECHNIQUE: Four views of the left knee. FINDINGS: No fracture or joint effusion. Alignment is anatomic. There is minimal narrowing of the medial compartment but joint spaces otherwise maintained. No abnormal soft tissue calcification. XR/XR knee LT 4V IMPRESSION: Minimal narrowing of the medial compartment.
[2024-05-25 10:21] LABS: MANUAL DIFF FLAG NO
[2024-05-25 10:29] LABS: Basophils Percent Auto 0.3 % (0-2); Eosinophils Absolute Auto 0.1 X10*3/uL (0.0-0.4); Eosinophils Percent Auto 0.9 % (0-4); Hematocrit 41.7 % (42.0-52.0); Hemoglobin 14.2 g/dl (14.0-18.0); Imm Gran Abs Auto 0.04 X10*3/uL (0.00-0.03); Imm Gran Pct Auto 0.4 % (0.0-0.4); Lymphocytes Absolute Auto 2.2 X10*3/uL (1.2-4.9); Lymphocytes Percent Auto 23.8 % (20-40); Mean Corpuscular HGB Conc 34.1 g/dl (31.0-36.0); Mean Corpuscular Hemoglobin 29.8 pg (27.0-33.0); Mean Corpuscular Volume 87.4 fL (80.0-98.0); Mean Platelet Volume 13.3 fL (9.4-12.4); Monocytes Absolute Auto 0.9 X10*3/uL (0.1-1.2); Monocytes Percent Auto 10.3 % (2-11); Neutrophils Absolute Auto 5.8 x10*3/uL (2.0-8.3); Neutrophils Percent Auto 64.3 % (45-73); Platelet Count 134 X10*3/uL (160-400); Red Blood Count 4.77 X10*6/uL (4.60-5.80); Red Cell Distribution Width 12.6 % (11.0-16.0); White Blood Count 9.1 X10*3/uL (4.8-10.8)
[2024-05-25 11:15] LABS: Anion Gap 11 (12-20); Blood Urea Nitrogen 17 mg/dL (9-16); Carbon Dioxide 26 mmol/L (22-29); Chloride 105 mmol/L (96-108); Cholesterol 101 mg/dL (<200); Estimated Glomerular Filt Rate > 60; Glucose Fasting 81 mg/dL (60-99); HDL Cholesterol 34 mg/dL (>40); Iron 58 mcg/dL (45-160); LDL Cholesterol Calculated 53 mg/dL (<100); Percent Iron Saturation 22 % (15-50); Potassium 3.4 mmol/L (3.3-5.1); Sodium 139 mmol/L (135-145); Total Iron Binding Capacity 261 mcg/dL (228-428); Triglycerides 71 mg/dL (<150); Unsaturated Iron Binding 203 ug/dL
[2024-05-25 11:25] LABS: Thyroid Stimulating Hormone 0.27 uIU/mL (0.32-4.0); Vitamin D 25-OH Total 45.6 ng/mL (>30)
== END 2024-05-25 08:41 | disposition home or self-care (01) ==
LOC: HO.HMGCX 08:40
PROVIDERS: PCP Internal Medicine; Visit Provider Internal Medicine
DX: M25.562 Pain in left knee (principal); M83.9 Adult osteomalacia, unspecified; D69.3 Immune thrombocytopenic purpura; E03.8 Other specified hypothyroidism; E06.3 Autoimmune thyroiditis; I10 Essential (primary) hypertension; K50.10 Crohn's disease of large intestine without complications; E78.5 Hyperlipidemia, unspecified; Z00.01 Encounter for general adult medical examination with abnormal findings
CPT/HCPCS: 36415; 73564; 80048; 80061; 82306; 83540; 84439; 84443; 85025

== ENCOUNTER 2024-06-27 14:52 | Outpatient (REF) | payer OTHER, SELFPAY ==
--- NOTE | ~2024-06-27 | XR_ITS ---
EXAMINATION: XR KNEE AP STANDING 2 views left knee CLINICAL INFORMATION: Pain in the left knee. Pain in the right knee. COMPARISON: X-rays of the left knee May 2024 TECHNIQUE: AP bilateral standing view of the knees was obtained. Additional patella and lateral view of the left knee FINDINGS: Left knee: Patellofemoral compartment: Minimal marginal osteophytes without joint space narrowing indicative of minimal osteoarthritis. Medial and lateral compartments normal. No effusion. Limited right knee AP upright: The medial and lateral compartments are normal surrounding bones and soft tissues are unremarkable. Cannot evaluate patellofemoral compartment XR/XR knee LT 2V IMPRESSION: LEFT KNEE: Minimal osteoarthritis of the patellofemoral compartment. RIGHT KNEE: Unremarkable. Electronically signed by: Bryce Lilly MD 07/12/2024 06:46 AM EDT
--- NOTE | ~2024-06-27 | XR_ITS ---
EXAMINATION: XR KNEE AP STANDING 2 views left knee CLINICAL INFORMATION: Pain in the left knee. Pain in the right knee. COMPARISON: X-rays of the left knee May 2024 TECHNIQUE: AP bilateral standing view of the knees was obtained. Additional patella and lateral view of the left knee FINDINGS: Left knee: Patellofemoral compartment: Minimal marginal osteophytes without joint space narrowing indicative of minimal osteoarthritis. Medial and lateral compartments normal. No effusion. Limited right knee AP upright: The medial and lateral compartments are normal surrounding bones and soft tissues are unremarkable. Cannot evaluate patellofemoral compartment XR/XR knee standing BI IMPRESSION: LEFT KNEE: Minimal osteoarthritis of the patellofemoral compartment. RIGHT KNEE: Unremarkable. Electronically signed by: Bryce Lilly MD 07/12/2024 06:46 AM EDT
== END 2024-06-27 14:53 | disposition home or self-care (01) ==
LOC: HO.XRAY 14:52
PROVIDERS: PCP Internal Medicine; Visit Provider Physician Assistant
DX: M25.562 Pain in left knee (principal); M25.561 Pain in right knee
CPT/HCPCS: 73560; 73565

== ENCOUNTER 2024-06-28 09:52 | Outpatient (AMB) | payer OTHER, SELFPAY ==
[2024-06-28 09:53] VITALS: BMI 26.8
--- NOTE | 2024-06-28 09:53 | MHC.OFFVIS ---
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 Patient reports he fell off a ladder in February, he did not seek any treatment. He followed up with his PCP due to ongoing pain. His discomfort presents with flexion of the knee and is located at the anterior aspect of knee. Limited ROM. No other tx. Denies numbness or tingling. Allergies environmental allergies Adverse Reaction (Verified 06/28/24 10:03) Itchy Eyes Medication List - Last Reconciled 06/28/24 by Dora Brantley PA-C cholecalciferol (vitamin D3) 50 mcg PO DAILY ferrous sulfate 325 mg PO DAILY losartan 50 mg PO DAILY rosuvastatin 40 mg PO DAILY semaglutide (weight loss) (Wegovy) 0.5 mg subcut QWEEK Synthroid (levothyroxine) 150 mcg PO DAILY NS HPI HPI DIRECTOR REGULATORY COMPLIANCE- Left knee pain/ injury: Details: 49-year-old male who presents to the office today for an evaluation of left knee injury after a fall off a ladder in February. He did not seek any treatment however he was seen by his PCP due to ongoing pain. He currently states he has discomfort and limited ROM at the anterior aspect of his knee that comes with flexion. He denies any numbness, tingling, locking or knee giving out. 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 Other and unspecified hyperlipidemia Essential hypertension Coronary artery calcification seen on CAT scan Pseudofolliculitis barbae GERD (gastroesophageal reflux disease) Crohn's disease Dyslipidemia Surgical History Hx of LASIK H/O wisdom tooth extraction Hx of appendectomy Family History Father Myocardial infarction CVD (cardiovascular disease) Mother CVD (cardiovascular disease) Brother Hypothyroidism Substance use disorder Brother Substance use disorder Brother Substance use disorder Sister Substance use disorder Social History Housing: House Alcohol intake: current Alcohol intake frequency: holidays/special occasions only Patient Tobacco Use Status: Never used Tobacco e-Cigarette/Vaping Use: Never Used service: No Current occupational status: employed Sexual orientation: Lesbian/Jeter/Homosexual Cognitive needs: No Hearing needs: No Vision needs: Yes Review of Systems Const All systems reviewed & are unremarkable except as noted in HPI and below Physical Exam Vital Signs: BMI result Body Mass Index 26.8 Const General: cooperative, healthy appearing, comfortable, no acute distress, well developed and alert Orientation/consciousness: patient oriented x3 HEENT Head: Yes normal to inspection, Yes normocephalic and Yes atraumatic Eyes General: appearance normal, both eyes and all related structures Resp Effort & Inspection: normal respiratory effort and able to speak in complete sentences Cardio Rate: regular rate Peripheral pulses: Peripheral pulses 2+ throughout GI Palpation (GI): Soft to palpation Skin Lesions: no lesions Rashes: no rashes Neuro General: patient oriented x3 Extrem Other: Left knee: Skin intact, no erythema or joint effusion. Medial retropatellar tenderness present. Full ROM with crepitus. Negative James?s. No ligamentous laxity. NVI. ? Results Reviewed Results Reviewed: xrays of the left knee obtained today are negative for acute fracture or dislocations. Mild patella lateralization Assessment & Plan Assessment & Plan (1) Chondromalacia of left patella: Code(s): M22.42 - Chondromalacia patellae, left knee Category: Medical Plan We discussed options which include PT, NSAIDs and bracing. He will proceed with PT and NSAIDs. He was also placed in a Genumed knee brace in the office today. If symptoms persist, he will contact me for an injection, otherwise, PRN. Orders: Orders XR knee standing BI 06/27/24 M25.561 - Pain in right knee, M25.562 - Pain in left knee PT Evaluation and Treatment Today M22.42 - Chondromalacia patellae, left knee Patient Instructions: Scribed for Ta-Barbara Brantley PA-C, by Marshal Peck medical claims representative, on 06/18/2024 at 10:00 AM EST.? I, Dora Brantley PA-C, have personally reviewed and agree with the information entered by the scribe. Coding Level of Care Code New Pt Level 3 (88788) Complex EM visit Add On G2211 Diagnoses Chondromalacia of left patella M22.42
== END 2024-06-28 11:02 | disposition home or self-care (01) ==
PROVIDERS: PCP Internal Medicine; Visit Provider Physician Assistant
DX: M22.42 Chondromalacia patellae, left knee (principal)
CPT/HCPCS: 99203

== ENCOUNTER → 2024-06-28 09:52 | Outpatient (BNVA) | payer OTHER, SELFPAY | PROVIDERS: PCP Internal Medicine; Visit Provider Physician Assistant | DX: M25.562 Pain in left knee (principal) ==

== ENCOUNTER 2024-11-20 09:53 | Outpatient (REF) | payer OTHER, SELFPAY ==
--- NOTE | ~2024-11-20 | US_ITS ---
CLINICAL HISTORY: N20.0 - Calculus of kidney US Renal Comparison: None Findings: Right kidney normal size and echotexture, 9.9 cm length. Left kidney normal size and echotexture, 10.5 cm length. No hydronephrosis. Nonobstructive 3 mm right renal stone. 4 mm right renal cyst not requiring further follow-up/workup. IMPRESSION: Nonobstructive 3 mm right renal stone. No hydronephrosis. This document has been electronically signed by: Kierra Parsons MD on 11/20/2024 10:59:41
== END 2024-11-20 09:54 | disposition home or self-care (01) ==
LOC: HO.HMGCX 09:53
PROVIDERS: PCP Internal Medicine; Visit Provider Nurse Practitioner Family
DX: N20.0 Calculus of kidney (principal)
CPT/HCPCS: 76775

== ENCOUNTER → 2024-11-20 09:55 | Outpatient (BNV) | payer OTHER, SELFPAY | PROVIDERS: PCP Internal Medicine; Visit Provider Radiology Diagnostic Radiology | DX: N20.0 Calculus of kidney (principal) | CPT/HCPCS: 76775 ==

== ENCOUNTER 2024-11-28 08:55 | Outpatient (AMB) | payer OTHER, SELFPAY ==
--- NOTE | 2024-11-28 09:02 | MHC.OFFVIS ---
Intake Visit Reasons: Kidney Stone Concerns/US Results Intake Note: Patient is present for KIDNEY STONECONCERN/US RESULTS Urology Medication:NONE Antibiotic Allergy:NONE Blood Thinner:NONE Pattern Stamper Required: No Allergies environmental allergies Adverse Reaction (Verified 11/28/24 09:03) Itchy Eyes HPI Comments Details: Toney is a very pleasant male. He is a patient of Dr. Elizabeth. He seen for the following urologic conditions - urethrocutaneous fistula - kidney stone concerns Previous stones Recommend Urorisk Review in 4 months Nephrolithiasis Renal ultrasound - 12/12 No hydronephrosis. Nonobstructive 3 mm right renal stone. 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 Other and unspecified hyperlipidemia Essential hypertension Coronary artery calcification seen on CAT scan Pseudofolliculitis barbae GERD (gastroesophageal reflux disease) Crohn's disease Dyslipidemia Surgical History Hx of LASIK H/O wisdom tooth extraction Hx of appendectomy Family History Father Myocardial infarction CVD (cardiovascular disease) Mother CVD (cardiovascular disease) Brother Hypothyroidism Substance use disorder Brother Substance use disorder Brother Substance use disorder Sister Substance use disorder Social History Housing: House Alcohol intake: current Alcohol intake frequency: holidays/special occasions only Patient Tobacco Use Status: Never used Tobacco e-Cigarette/Vaping Use: Never Used service: No Current occupational status: employed Sexual orientation: Lesbian/Jeter/Homosexual Cognitive needs: No Hearing needs: No Vision needs: Yes Review of Systems Const Denies chills and Denies fever(s) Card Reports no additional complaints and Denies syncope Resp Denies cough GI Denies abdominal pain and Denies heartburn Reports as per HPI and Denies change in libido Neuro Denies syncope Psych Denies change in libido Endo Denies change in libido Physical Exam Const General: cooperative, healthy appearing, comfortable and no acute distress Orientation/consciousness: patient oriented x3 HEENT Face and sinus: Yes normal facial exam Mouth: moist mucous membranes Neck Neck: Yes normal visual inspection, Yes full ROM and Yes trachea midline Chest Chest palpation & inspection: normal inspection of the chest Resp Effort & Inspection: normal respiratory effort, able to speak in complete sentences and no respiratory distress GI Inspection: Yes normal to inspection Back/Spine/Pelvis Cervical Spine: normal cervical lordosis Thoracic/Lumbar Spine: thoracic and lumbar spine normal to inspection Skin General skin exam: no rashes or lesions noted Neuro General: patient oriented x3, gait normal, tone normal and moves all extremities Extrem General: Yes normal to inspection and Yes capillary refill normal Assessment & Plan Assessment & Plan (1) Nephrolithiasis: Code(s): N20.0 - Calculus of kidney Category: Medical Plan Four month follow-up urorisk Orders: Orders URORISK Today N20.0 - Calculus of kidney Patient Instructions: This note is constructed using voice recognition software. While every effort has been made to ensure accuracy epic ambulatory analysts errors may have been included. Imaging studies, laboratory and physical exam results were discussed and reviewed in detail. No major barriers to patient understanding were identified. An opportunity to ask questions regarding the treatment plan was provided. All questions were answered. The patient expressed understanding and agreement with the above treatment plan. The patient is aware they should contact our office by phone for worsening of their current condition or the appearance of new urologic symptoms. Compliance is encouraged with any medications and followup testing that is ordered. It is a privilege to participate in the urologic care of your patient. If you have any questions or concerns regarding treatment for the above conditions, or other urologic issues, please do not hesitate to contact me. The office telephone contact is [phone]. Sincerely, Dr Dennis Rojas MD, [facility] - Urology Compassionate Specialist Care for the Genitourinary System Coding Level of Care Code Est Pt Level 3 (25652) Diagnoses Nephrolithiasis N20.0
== END 2024-11-28 09:30 | disposition home or self-care (01) ==
PROVIDERS: PCP Internal Medicine; Visit Provider Urology
DX: N20.0 Calculus of kidney (principal)
CPT/HCPCS: 99213

== ENCOUNTER 2024-11-28 09:32 | Outpatient (REF) | payer OTHER, SELFPAY ==
[2024-11-28 11:09] LABS: Alanine Aminotransferase 44 U/L (0-40); Anion Gap 9 (12-20); Aspartate Amino Transferase 34 U/L (5-37); Blood Urea Nitrogen 22 mg/dL (9-16); Calcium 9.5 mg/dL (8.4-10.2); Carbon Dioxide 27 mmol/L (22-29); Chloride 109 mmol/L (96-108); Cholesterol 126 mg/dL (<200); Estimated Glomerular Filt Rate > 60; Glucose Fasting 93 mg/dL (60-99); HDL Cholesterol 35 mg/dL (>40); LDL Cholesterol Calculated 80 mg/dL (<100); Potassium 4.2 mmol/L (3.3-5.1); Sodium 141 mmol/L (135-145); Triglycerides 59 mg/dL (<150)
[2024-11-28 11:13] LABS: Free T4 (Free Thyroxine) 1.16 ng/dL (0.71-1.85); Thyroid Stimulating Hormone 1.59 uIU/mL (0.32-4.0)
[2024-11-30 01:58] LABS: Thyroid Peroxidase Antibodies 45 IU/mL (<9)
== END 2024-11-28 09:33 | disposition home or self-care (01) ==
LOC: HO.10HDL 09:32
PROVIDERS: Visit Provider Internal Medicine
DX: E03.8 Other specified hypothyroidism (principal); E06.3 Autoimmune thyroiditis; I10 Essential (primary) hypertension; I25.10 Atherosclerotic heart disease of native coronary artery without angina pectoris; E78.5 Hyperlipidemia, unspecified
CPT/HCPCS: 36415; 80048; 80061; 84439; 84443; 84450; 84460; 86376

== ENCOUNTER 2025-03-29 09:09 | Outpatient (AMB) | payer OTHER, SELFPAY ==
--- NOTE | 2025-03-29 09:10 | A.OFFVIS_ITS ---
Intake Visit Reasons: 4m/Urorisk Intake Note: Patient is present for 4M/URORISK Urology Medication:NONE Antibiotic Allergy:NONE Blood Thinner:NONE Balloon Dipper Required: No Allergies environmental allergies Adverse Reaction (Verified 03/29/25 09:10) Itchy Eyes HPI Comments Details: Toeny is a very pleasant male. He is a patient of Dr. Elizabeth. He seen for the following urologic conditions - urethrocutaneous fistula - kidney stone concerns Telemedicine Evaluation 15 min Consultation [employer] Michael Video Did have recent stone Will be given tamsulosin to allow passage Start B6 Plan [employer] Six-month follow-up imaging Nephrolithiasis Renal ultrasound - 12/12 No hydronephrosis. Nonobstructive 3 mm right renal stone. 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 Has failed to heal Has leakage when urinate standing up 06/09 multilayer fistula closure [facility] Medical History (Updated 11/28/24 @ 09:27 by Dennis Rojas MD) Overweight (BMI 25.0-29.9) History of fall Left anterior knee pain Vitamin D deficient osteomalacia Fatigue Benign paroxysmal vertigo, bilateral Penile lesion Personal history of COVID-19 Chronic ITP (idiopathic thrombocytopenia) Thiamine deficiency 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 Other and unspecified hyperlipidemia Essential hypertension Coronary artery calcification seen on CAT scan Pseudofolliculitis barbae GERD (gastroesophageal reflux disease) Crohn's disease Dyslipidemia Surgical History Hx of LASIK H/O wisdom tooth extraction Hx of appendectomy Family History Father Myocardial infarction CVD (cardiovascular disease) Mother CVD (cardiovascular disease) Brother Hypothyroidism Substance use disorder Brother Substance use disorder Brother Substance use disorder Sister Substance use disorder Social History Housing: House Alcohol intake: current Alcohol intake frequency: holidays/special occasions only Patient Tobacco Use Status: Never used Tobacco e-Cigarette/Vaping Use: Never Used service: No Current occupational status: employed Sexual orientation: Lesbian/Jeter/Homosexual Cognitive needs: No Hearing needs: No Vision needs: Yes Review of Systems Const All systems reviewed & are unremarkable except as noted in HPI and below Reports no additional complaints Resp Reports no additional complaints GI Reports no additional complaints Reports as per HPI Musc Reports no additional complaints Physical Exam Telemedicine evaluation Appropriate responses Regular breathing rate and rhythm HEENT Head: Yes normal to inspection Ears: hearing grossly normal bilaterally Eyes General: appearance normal, both eyes and all related structures Neck Neck: Yes normal visual inspection Chest Chest palpation & inspection: normal inspection of the chest Resp Effort & Inspection: normal respiratory effort and able to speak in complete sentences Telehealth Telehealth Telehealth Platform: [employer] Location of provider rendering services: practice address Location of patient: address on file Patient Identification confirmed using: Name, : Yes Telehealth method: video Patient verbally consented to treatment: Yes Patient verbally consented to billing insurance company: Yes Patient informed of any privacy concerns related to visit: Yes Minutes spent on Phone/Video with Pt.: 15 Assessment & Plan Assessment & Plan (1) Nephrolithiasis: Code(s): N20.0 - Calculus of kidney Category: Medical Plan Six-month follow-up imaging Orders: Orders URORISK Today N20.0 - Calculus of kidney US renal BI 6 Months N20.0 - Calculus of kidney Medications: New pyridoxine (vitamin B6) 50 mg PO DAILY 90 days 90 tabs 1RF N20.0 - Calculus of kidney tamsulosin 0.4 mg PO BEDTIME 14 days 14 caps 0RF N20.0 - Calculus of kidney Patient Instructions: This note is constructed using voice recognition software. While every effort has been made to ensure accuracy occupational therapy instructor errors may have been included. Imaging studies, laboratory and physical exam results were discussed and reviewed in detail. No major barriers to patient understanding were identified. An opportunity to ask questions regarding the treatment plan was provided. All questions were answered. The patient expressed understanding and agreement with the above treatment plan. The patient is aware they should contact our office by phone for worsening of their current condition or the appearance of new urologic symptoms. Compliance is encouraged with any medications and followup testing that is ordered. It is a privilege to participate in the urologic care of your patient. If you have any questions or concerns regarding treatment for the above conditions, or other urologic issues, please do not hesitate to contact me. The office telephone contact is [phone]. Sincerely, Dr Dennis Rojas MD, [facility] - Urology Compassionate Specialist Care for the Genitourinary System Coding Level of Care Code Tele Est Pt Level 3 (05586) Diagnoses Nephrolithiasis N20.0
--- OUTSIDE RECORDS SUMMARY | 2025-03-29 09:47 | XMS_ITS ---
Author Organization [facility] [address] Address [address] [place] [address] Care Team Providers Care Credit Administration Officer Name Role Phone KOMAL BROWNE Unavailable [phone] ALEX MOURA Unavailable [phone] Encounters Encounter Location Date Provider Diagnosis [facility] [address] [place] [address] 11/28/2024 ALEX MOURA Plan Of Treatment Next Appt Details Provider Name:ALEX MOURA , 04/18/2025 10:00:00 AM, [address], [address], [place], [address], Progress Notes * KATELYNN DAVISDOB:1975 (50 yo M)Acc No.[id number]:11/28/2024 Patient:TEGAN WYLIEIC Provider:LESLIE MOURA :1975???Age:49 Y???Sex:Male Mateo e:11/28/2024 Address:[address] [place], [place] [id number] Subjective: * Chief Complaints: * ??? * Medical History:? Objective: * Vitals:? Assessment: Plan: * Treatment: * Images: Billing Information: * Visit Code:? * Procedure Codes:? * Electronic signature of YAMIL MOURA PA-C, [id number] on 03/29/2025 at 09:47 AM EDT Sign off status: Pending * Provider:LESLIE MOURA Date:? Generated for Simeon soto/Zenaida/eTransmitting on:?03/29/2025 09:47 AM EDT
== END 2025-03-29 09:55 | disposition home or self-care (01) ==
LOC: HO.HUSH 09:09
PROVIDERS: PCP Internal Medicine; Visit Provider Urology
DX: N20.0 Calculus of kidney (principal)
CPT/HCPCS: 99213

== ENCOUNTER → 2025-03-29 09:09 | Outpatient (BNVA) | payer OTHER, SELFPAY | PROVIDERS: PCP Internal Medicine; Visit Provider Urology ==

== ENCOUNTER 2025-04-13 10:57 | Outpatient (REF) | payer OTHER, SELFPAY ==
--- OUTSIDE RECORDS SUMMARY | 2024-11-28 05:15 | XMS_ITS ---
Author Organization [facility] [address] Address [address] [place] [address] Care Team Providers Care Full Service Supervisor Name Role Phone KOMAL BROWNE Unavailable [phone] ALEX MOURA Unavailable [phone] Encounters Encounter Location Date Provider Diagnosis [facility] [address] [place] [address] 11/28/2024 ALEX MOURA Plan Of Treatment Next Appt Details Provider Name:ALEX MOURA , 04/18/2025 10:00:00 AM, [address], [address], [place], [address], Progress Notes * KATELYNN DAVISDOB:1975 (50 yo M)Acc No.[id number]:11/28/2024 Patient: KATELYNN YE Provider: Rod MOURA :1975 A ge:49 Y S ex:Male Date:11/28/2024 Address:[address] [place], [place] [id number] Subjective: * Chief Complaints: * * Medical History: Objective: * Vitals: Assessment: Plan: * Treatment: * Images: Billing Information: * Visit Code: * Procedure Codes: * Electronic signature of YAMIL MOURA PA-C, [id number] on 04/13/2025 at 12:06 PM EDT Sign off status: Pending * Provider: Rod MOURA Date: 0 11/28/2024 Generated for Simeon ng/Fadariag/eTransmitting on: 0 04/13/2025 12:06 PM EDT
[2025-04-13 12:59] LABS: MANUAL DIFF FLAG NO
[2025-04-13 13:12] LABS: Basophils Percent Auto 0.5 % (0-2); Eosinophils Absolute Auto 0.1 X10*3/uL (0.0-0.4); Eosinophils Percent Auto 1.7 % (0-4); Hematocrit 41.5 % (42.0-52.0); Hemoglobin 14.2 g/dl (14.0-18.0); Imm Gran Abs Auto 0.03 X10*3/uL (0.00-0.03); Imm Gran Pct Auto 0.5 % (0.0-0.4); Lymphocytes Percent Auto 30.9 % (20-40); Mean Corpuscular HGB Conc 34.2 g/dl (31.0-36.0); Mean Corpuscular Hemoglobin 30.3 pg (27.0-33.0); Mean Corpuscular Volume 88.5 fL (80.0-98.0); Mean Platelet Volume 12.8 fL (9.4-12.4); Monocytes Absolute Auto 0.6 X10*3/uL (0.1-1.2); Monocytes Percent Auto 8.9 % (2-11); Neutrophils Absolute Auto 3.8 x10*3/uL (2.0-8.3); Neutrophils Percent Auto 57.5 % (45-73); Platelet Count 132 X10*3/uL (160-400); Red Blood Count 4.69 X10*6/uL (4.60-5.80); Red Cell Distribution Width 13.1 % (11.0-16.0); White Blood Count 6.5 X10*3/uL (4.8-10.8)
[2025-04-13 13:47] LABS: Alanine Aminotransferase 32 U/L (0-40); Anion Gap 10 (12-20); Aspartate Amino Transferase 34 U/L (5-37); Blood Urea Nitrogen 14 mg/dL (9-16); Calcium 8.9 mg/dL (8.4-10.2); Carbon Dioxide 25 mmol/L (22-29); Chloride 107 mmol/L (96-108); Cholesterol 127 mg/dL (<200); Estimated Glomerular Filt Rate > 60; Glucose Fasting 93 mg/dL (60-99); HDL Cholesterol 47 mg/dL (>40); Iron 68 mcg/dL (45-160); LDL Cholesterol Calculated 64 mg/dL (<100); Percent Iron Saturation 26 % (15-50); Potassium 3.7 mmol/L (3.3-5.1); Sodium 138 mmol/L (135-145); Total Iron Binding Capacity 265 mcg/dL (228-428); Triglycerides 80 mg/dL (<150); Unsaturated Iron Binding 197 ug/dL
[2025-04-13 13:48] LABS: Free T4 (Free Thyroxine) 1.19 ng/dL (0.71-1.85); Thyroid Stimulating Hormone 2.21 uIU/mL (0.32-4.0)
== END 2025-04-13 10:58 | disposition home or self-care (01) ==
LOC: HO.HMGCLDS 10:57
PROVIDERS: PCP Internal Medicine; Visit Provider Internal Medicine
DX: E06.3 Autoimmune thyroiditis (principal); E03.8 Other specified hypothyroidism; D69.3 Immune thrombocytopenic purpura; E78.5 Hyperlipidemia, unspecified; M83.9 Adult osteomalacia, unspecified; I10 Essential (primary) hypertension
CPT/HCPCS: 36415; 80048; 80061; 82306; 83540; 84439; 84443; 84450; 84460; 85025

== ENCOUNTER 2025-04-19 08:51 | Outpatient (AMB) | payer OTHER, SELFPAY ==
--- OUTSIDE RECORDS SUMMARY | 2025-04-19 09:00 | XMS_ITS | Patient Health Record ---
Author Organization [facility] Address [address] [place] [address] Care Team Providers Care Metal Drawer Name Role Phone Clara PACHECO, Samantha Primary Care Provider Braulio Reyes Jr Unavailable [phone] Allergies No Known Allergies Reason For Referral No Information Medications Medication SIG (Take, Route, Frequency, Duration) Notes Start Date End Date Status Losartan Potassium 50 MG 1 tablet Orally Once a day for 30 day(s) 11/12/2021 Active Rosuvastatin Calcium 40 MG TAKE 1 TABLET BY MOUTH DAILY Oral for 90 Active Synthroid 125 MCG TAKE 1 TABLET BY JOHNATHON TH DAILY Diagnosis Unavailable Oral for 30 Active Apriso 0.375 GM 4 capsules in the mo rning Orally Once a day for 30 day(s) 11/12/2021 Active MiraLax (colon prep) 17 GM/SCOOP mixed with Gatorade or Crystal Light Orally begin at 5:00 p.m. the day before the procedure for 1 day 11/12/2021 Active Vitamin B12 1000 MCG 1 tablet Orally Onc e a day for 30 day(s) 11/12/2021 Active Vitamin D3 10 MCG (400 UNIT) 1 tablet Orally Once a day for 30 day(s) 11/12/2021 Active Calcium 500 MG 1 tablet with meals Orally Twice a day for 30 day(s) 11/12/2021 Active Co Q 10 60 MG as directed Orally 11/12/2021 Active Immunizations Vaccine Route Administration Date Status Comme nts Influenza Unknown 06/05/2020 Administered Social History Alcohol Screen Question Answer Notes Did you have a drink containing alcohol in the p ast year? No Points 0 Interpretation Negative Section Notes: Occasional alcohol. Single, valdes. Occasional alcohol. Problems Problem Type SNOMED Code ICD Code Onset Dates Problem Status W/U Status Risk Notes Problem Crohn (1890283) Crohn's disease of large intestine with unspecified complications (K50.119) Active confirmed Problem 0765163 Crohn's disease of large intestine with complication (K50.119) Active confirmed Plan Of Treatment Pending Test Test Name Order Date TSH 06/18/2011 CBC, Platelet; No Differential 1 ESR 06/18/2011 Future Test Test Name Order Date COLONOSCOPY 11/12/2021 Insurance Providers Payer Name Payer Address Payer Phone Subscriber Number Group Number Insured Name Patient Relationship to Insured Coverage Start Date Coverage End Date [facility] [address] [place] [address] [id number] KATELYNN DAVIS Self - patient is the insured Medical (General) History Medical History History ICD Code Crohn's disease, diagnosed 2 010, colonoscopy 09/26, normal terminal ileum, biopsies will to moderate active chronic colitis, previous therapy Asacol and steroid suppositories. Pal thyroiditis, hypothyroid Hypertension Coronary artery calcification, LAD Idiopathic thrombocytopenia with platelet counts running in the 110-120 range Surgical History Surgery Date(Month/Year)
--- NOTE | 2025-04-19 09:47 | A.OFFPC_ITS ---
Vital Signs 04/19/25 09:48 Height 5 ft 10 in Weight 185 lb BMI 26.5 BP 108/80 Blood Pressure Location Lt brachial Position Sitting Respiration 16 Pulse 74 Pulse Source Pulse Oximeter Temp 97.9 F Temp Source Oral Pulse Oximetry (%) 98 Oxygen Delivery Method Room Air Intake Visit Reasons: Meds review Allergies environmental allergies Adverse Reaction (Verified 04/19/25 10:05) Itchy Eyes Medication List - Last Reconciled 04/19/25 by Samantha Elizabeth MD cholecalciferol (vitamin D3) 50 mcg PO DAILY ferrous sulfate 325 mg PO DAILY losartan 50 mg PO DAILY pyridoxine (vitamin B6) 50 mg PO DAILY 90 days rosuvastatin 40 mg PO DAILY Synthroid (levothyroxine) 150 mcg PO DAILY NS tirzepatide (weight loss) (Zepbound) 2.5 mg subcut QWEEK Tobacco use date assessed: 04/19/25 Dental Screening Dental Screen Date: 04/19/25 Did you have a dental visit in the last 12 months?: Yes Did you have a dental problem in the last 6 months where you did not have access to dental care?: Yes Was dental information given to patient?: Patient has dentist HPI Meds review HPI Details 50 year-old male with history of hyperte nsion, chronic ITP, 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 He has been feeling well, compliant with taking his medications and is currently seeing weight loss specialist Dr. Walton for help with controlling weight, currently on Zepbound which has been helping control his weight. Had recent fasting labs done showed electrolytes, renal function lipids and thyroid levels within normal limits. He has been feeling meds at present [facility] Medical History History of nephrolithiasis Overweight (BMI 25.0-29.9) History of fall Left anterior knee pain Vitamin D deficient osteomalacia Fatigue Benign paroxysmal vertigo, bilateral Penile lesion Personal history of COVID-19 Chronic ITP (idiopathic thrombocytopenia) Thiamine deficiency 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 Other and unspecified hyperlipidemia Essential hypertension Coronary artery calcification seen on CAT scan Pseudofolliculitis barbae GERD (gastroesophageal reflux disease) Crohn's disease Dyslipidemia Surgical History Hx of LASIK H/O wisdom tooth extraction Hx of appendectomy Family History Father Myocardial infarction CVD (cardiovascular disease) Mother CVD (cardiovascular disease) Brother Hypothyroidism Substance use disorder Brother Substance use disorder Brother Substance use disorder Sister Substance use disorder Social History Housing: House Alcohol intake: current Alcohol intake frequency: holidays/special occasions only Patient Tobacco Use Status: Never used Tobacco e-Cigarette/Vaping Use: Never Used service: No Current occupational status: employed Sexual orientation: Lesbian/Jeter/Homosexual Cognitive needs: No Hearing needs: No Vision needs: Yes Questionnaire PHQ-9 Over the last 2 weeks, how often have you been bothered by any of the following problems? 1. Little interest or pleasure in doing things: not at all 2. Feeling down, depressed, or hopeless: not at all 3. Trouble falling or staying asleep, or sleeping too much: not at all 4. Feeling tired or having little energy: not at all 5. Poor appetite or overeating: not at all 6. Feeling bad about yourself - or that you are a failure or have let yourself or your family down: not at all 7. Trouble concentrating on things, such as reading the newspaper or watching television: not at all 8. Moving or speaking so slowly that other people could have noticed. Or the opposite - being so fidgety or restless that you have been moving around a lot more than usual: not at all 9. Thoughts that you would be better off or of hurting yourself in some way: not at all Total score: 0 Depression Screening Interpretation: Negative Depression Screening Done: Yes 74741 - PHQ-9 Billing: Yes Source: Developed by Drs. Manuel Rodriguez, Cortney Carl, Davidson Brody and colleagues, with an educational jonathon from [employer]. Thrive Questionnaire Date Thrive assessed: 05/25/24 I am a: Patient What is your living situation today?: I have a steady place to live Within the past 12 months, did the food you bought not last and you didn't have the money to get more?: Never true Within the past 12 months, did you worry whether your food would run out before you got money to buy more?: Never true Do you have trouble paying for medicines?: No Do you have trouble getting transportation to medical appointments?: No Do you have trouble paying your heating and electricity bill?: No Do you have trouble taking care of your child, family member or friend?: No Do you have trouble with day-to-day activities such as bathing, preparing meals, shopping, managing finances, etc.?: No Are you currently unemployed and looking for a job?: No Are you interested in more education?: No Please select the resources that you would like help with: None Currently or been in a relationship where the following occur: No concerns reported THRIVE Score: 0 AUDIT C Alcohol Use Questionnaire (AUDIT-C) 1. How often do you have a drink containing alcohol?: Monthly or less 2. How many drinks containing alcohol do you have on a typical day when you are drinking?: 1 or 2 3. How often do you have six or more drinks on one occasion?: Never Total Score: 1 LANE-[address] L[address] Date LANE - 7 assessed: 05/25/24 Feeling nervous, anxious, or on edge: 0 = Not at all Not being able to stop or control worryin = Not at all Worrying too much about different things: 0 = Not at all Trouble relaxin = Not at all Being so restless that it is hard to sit still: 0 = Not at all Becoming easily annoyed or irritable: 0 = Not at all Feeling afraid as if something awful might happen: 0 = Not at all Total LANE-7 score (0-4 normal; 5-9 mild; 10-14 moderate; 15-21 severe): 0 Source: Developed by Drs. Manuel Rodriguez, Cortney Carl, Davidson Brody and colleagues, with an educational jonathon from [employer]. Review of Systems Const Denies body aches, Denies chills and Denies fever(s) Eyes Reports blurry vision (With reading) ENT Reports no additional complaints Card Denies chest pain, Denies syncope, Denies irregular heart rhythm and Denies dyspnea Resp Denies cough and Denies dyspnea GI Denies abdominal pain and Denies heartburn Reports no additional complaints Musc Reports no additional complaints Skin/Breast Denies rash and Denies unusual bruising Neuro Denies syncope Psych Reports no additional complaints Endo Reports no additional complaints Ricky/Lymph Denies easy bleeding and Denies easy bruising Aller/Immun Reports no additional complaints Physical exam (Primary Care) Vital Signs: Last Vital Signs Temp 97.9 F 04/19/25 09:48 Pulse 74 04/19/25 09:48 Resp 16 04/19/25 09:48 BP 108/80 04/19/25 09:48 Pulse Ox 98 04/19/25 09:48 Oxygen Delivery Method Room Air 04/19/25 09:48 BMI result Body Mass Index 26.5 Tobacco/Smoking Status: Tobacco use Status Tobacco use date assessed 04/19/25 04/19/25 09:52 Patient Tobacco Use Status Never used Tobacco 04/19/25 09:52 e-Cigarette/Vaping Use Never Used 04/19/25 09:52 PHQ-9: PHQ-9 Score PHQ-9: Total score 0 04/19/25 10:18 Depression Screening Interpretation: Negative Thrive Assessment: Date of Thrive Assessment Date Thrive assessed 05/25/24 04/19/25 09:52 Currently or been in a relationship where the following occur: No concerns reported Const General: no acute distress and alert Orientation/consciousness: patient oriented x3 HENMT Ears: external ears normal General nose exam: Normal external nose present Face and sinus: Yes face symmetric Eyes General: appearance normal, both eyes and all related structures Neck Neck: Yes full ROM and Yes no lymphadenopathy Thyroid: Thyroid normal (Nonpalpable) Resp Effort & Inspection: normal respiratory effort and able to speak in complete sentences Auscultation: clear to auscultation bilaterally Cardio Rate: regular rate Rhythm: regular rhythm Heart sounds: S1 normal heart sound present and S2 normal heart sound present GI Inspection: Yes normal to inspection Palpation (GI): Soft to palpation Auscultation: normal bowel sounds General: Yes no CVA tenderness Male General Exam: Yes normal external exam Back/Spine/Pelvis Back: no CVA tenderness Skin Other: Multiple tattoos all over his body, has a skin tag on left preauricular area Neuro General: patient oriented x3, gait normal, tone normal, moves all extremities, no focal motor deficits and CN's II-XI intact bilaterally Gait exam (Neuro): Normal gait present Extrem General: Yes normal to inspection, Yes full ROM, Yes no pedal edema and Yes normal gait Results Reviewed Results Reviewed: Name: Toney Andino Age/Sex: 50/M : 1975 Unit#: [id number] Attend Dr: Samantha Elizabeth MD Re04/13/25 Status: DEP REF Location: [facility] Disch: SPEC : [id number] ANNMARIE: 04/13/25 STATUS: COMP REQ : [id number] RECD: 04/13/25-[address]: Samantha Elizabeth MD COMP: 04/13/25 ENTERED: 04/13/25-[address]: ORDERED: Met Prof Fast, IRON PROF, AST, ALT, Lipid Panel, Vitamin D 25-OH, Free T Test Result Flag Reference Sodium 138 135-145 mmol/L Potassium 3.7 3.3-5.1 mmol/L CL 107 96-108 mmol/L CO2 25 22-29 mmol/L Gap 10 L 12-20 BUN 14 9-16 mg/dL Creat 1.07 0.5-1.4 mg/dL eGFR > 60 Chronic Kidney Disease: Estimated GFR < 60 mL/mi n/1.73m2 Severe Kidney Disease: Estimated GFR < 15 mL/min/1.73m2 FBS 93 60-99 mg/dL CA 8.9 # 8.4-10.2 mg/dL Iron 68 45-160 mcg/dL TIBC 265 228-428 mcg/dL Saturation 26 15-50 % UIBC 197 ug/dL AST (GOT) 34 5-37 U/L ALT (GPT) 32 0-40 U/L Triglyceride 80 <150 mg/dL Desirable Triglyceride: less than 150 mg/dL Borderline High Triglyceride 150-199 mg/dL High Triglyceride: 200-499 mg/dL Very High Triglyceride: greater than or equal to 5OO mg/dL Cholesterol 127 <200 mg/dL Desirable Cholesterol: less than 200 mg/dL Borderline High Cholesterol: 200-239 mg/dL High Cholesterol: greater than 239 mg/dL LDL Calculated 64 <100 mg/dL Desirable LDL: less than 100 mg/dL Near Optimal/Above Optimal LDL: 110-129 mg/dL Borderline High LDL: 130-159 mg/dL High LDL: 160-189 mg/dL Very High LDL: greater than or equal to 190 mg/dL HDL 47 >40 mg/dL Desirable HDL: greater than 40 mg/dL Note: This HDL assay may give artificially low results in patients with liver disease. Vitamin D 25-OH 44.0 >30 ng/mL Health Based Reference Values* < 20 ng/mL Deficient 20-30 ng/mL Insufficient > 30 ng/mL Sufficient *Allan RODRIGUEZ. N Engl J Med. 2007;357:266-280 There is no well-established upper level of normal vitamin D levels. Some laboratories use 50 ng/mL as an upper limit of normal. However, toxicity is patient-dependent and may occur at any level. Careful correlation with the patient's presentation is necessary and, if there is concern for vitamin D toxicity, treatment should be considered irrespective of the serum level. Care must be taken in interpreting Vitamin D results from different laboratories and methodologies. Published data demonstrated that results from patients undergoing hemodialysis may show a negative bias when tested with various automated 25-OH vitamin D assays when compared to LC-MS/MS. When testing samples from patients whose predominant form of Vitamin D is Vitamin D2, such as patients receiving Vitamin D2 supplementation, results that are subtherapeutic s hould be confirmed with another method such as LC-MS/MS. Free T4 1.19 0.71-1.85 ng/dL TSH 3rd Gen. 2.21 0.32-4.0 uIU/mL TSH 3rd Generation ([facility]) Coding Level of Care Code Est Pt Level 4 (88177) Diagnoses Essential hypertension I10 Dyslipidemia E78.5 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 E03.8; E06.3 Overweight (BMI 25.0-29.9) E66.3 History of nephrolithiasis Z87.442 Additional Codes PHQ-9 - 55151 - PHQ-9 Billing: Yes ([id number]) Assessment & Plan Assessment & Plan (1) Essential hypertension: Code(s): I10 - Essential (primary) hypertension Category: Medical Plan: Blood pressure stable and controlled on losartan 50 mg daily (2) Dyslipidemia: Code(s): E78.5 - Hyperlipidemia, unspecified Category: Medical Plan: Recent fasting labs showed lipids are within normal limits, continued on rosuvastatin 40 mg daily and reinforced importance of following low-cholesterol diet and getting regular exercise, goes to the gym regularly (3) 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: Code(s): E03.8 - Other specified hypothyroidism; E06.3 - Autoimmune thyroiditis Category: Medical Plan: Thyroid levels are within normal limits, continue on Synthroid 150 mcg once a day (4) Overweight (BMI 25.0-29.9): Code(s): E66.3 - Overweight Category: Medical Plan: Currently being followed at the weight loss clinic with Dr. Nolasco, on tirzepatide, with dose recently increased by his provider to 5 mg once a week, has not yet started taking the new dose (5) History of nephrolithiasis: Code(s): Z87.442 - Personal history of urinary calculi Category: Medical Plan: Currently asymptomatic, has a follow-up appointment scheduled already Dr. Rojas in September 2025, currently on B6 supplement Medications: Refilled Synthroid (levothyroxine) 150 mcg PO DAILY 30 tabs 5RF NS
[2025-04-19 09:48] VITALS: BP 108/80; PULSE 74; RESP 16; TEMP 36.6; O2SAT 98; BMI 26.5
== END 2025-04-19 10:22 | disposition home or self-care (01) ==
LOC: HO.HMCC 08:52
PROVIDERS: PCP Internal Medicine; Visit Provider Internal Medicine
DX: I10 Essential (primary) hypertension (principal); E78.5 Hyperlipidemia, unspecified; E03.8 Other specified hypothyroidism; E06.3 Autoimmune thyroiditis; E66.3 Overweight; Z87.442 Personal history of urinary calculi

== ENCOUNTER → 2025-04-19 08:51 | Outpatient (BNVA) | payer OTHER, SELFPAY | PROVIDERS: PCP Internal Medicine; Visit Provider Internal Medicine | DX: I10 Essential (primary) hypertension (principal); E78.5 Hyperlipidemia, unspecified; E06.3 Autoimmune thyroiditis; E03.8 Other specified hypothyroidism; K50.90 Crohn's disease, unspecified, without complications; E66.3 Overweight; Z87.442 Personal history of urinary calculi; Z68.26 Body mass index [BMI] 26.0-26.9, adult | CPT/HCPCS: 96127 ==

== ENCOUNTER 2025-05-02 08:16 | Outpatient (AMB) | payer OTHER, SELFPAY ==
[2025-05-02 08:17] VITALS: BP 120/70; PULSE 80; TEMP 36.7; O2SAT 97; BMI 26.6
--- NOTE | 2025-05-02 08:17 | AM.OFFWIN_ITS ---
Intake Vital Signs 05/02/25 08:17 Height 5 ft 10 in Weight 185 lb 6 oz BMI 26.6 BP 120/70 Blood Pressure Location Rt brachial Position Sitting Pulse 80 Pulse Source Pulse Oximeter Temp 98.1 F Temp Source Oral Pulse Oximetry (%) 97 Oxygen Delivery Method Room Air Intake Visit Reasons: EP-groin rash Intake Note: Patient presents with a groin rash that he states he's had over a year Patient Tobacco Use Status: Never used Tobacco Sensitizer Required: No Allergies environmental allergies Adverse Reaction (Verified 05/02/25 08:20) Itchy Eyes Medication List - Last Reconciled 05/02/25 by Nora Walker PA-C cholecalciferol (vitamin D3) 50 mcg PO DAILY ferrous sulfate 325 mg PO DAILY losartan 50 mg PO DAILY pyridoxine (vitamin B6) 50 mg PO DAILY 90 days rosuvastatin 40 mg PO DAILY Synthroid (levothyroxine) 150 mcg PO DAILY NS tirzepatide (weight loss) (Zepbound) 2.5 mg subcut QWEEK Do you need a note to return to daycare/school/sports/work: No HPI HPI Comments History of Present Illness Details History - The patient is a 50-year-old male pres enting with a persistent rash on the penis x 1 year. - Initially diagnosed as dermatitis by radha lozoya, treated with metronidazole with minimal improvement. - Persistent severe flare-ups causing si gnificant discomfort and itching. - Tried clotrimazole and hydrocortisone without significant improvement. - Urology ruled out sexually transmitted infections; patient not sexually active recently. - History of Richard Christopher piercing, rep aired, not attributed to rash. - Switched to Dove sensitive body wash, wears cotton underwear. 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 Physical Exam General: Cooperative, healthy appearing, comfortable, no acute distress and well developed Orientation: Patient oriented x3 Limitations: No limitations Head: Normal to inspection Ears: Hearing grossly normal bilaterally Nose: Normal External nose present Face and sinus: Normal facial exam Mouth: normal, moist oral mucosa Eyes: Appearance normal, both eyes and all related structures Neck: Normal visual inspection and Yes full ROM Respiratory: Normal respiratory effort and able to speak in complete sentences. Skin: erythema with flat 0.2cm circular darker erythematous lesions on the distal shaft of the penis Neuro: Patient oriented x3 Extremities: moving all extremities normally [facility] Medical History History of nephrolithiasis Overweight (BMI 25.0-29.9) History of fall Left anterior knee pain Vitamin D deficient osteomalacia Fatigue Benign paroxysmal vertigo, bilateral Penile lesion Personal history of COVID-19 Chronic ITP (idiopathic thrombocytopenia) Thiamine deficiency 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 Other and unspecified hyperlipidemia Essential hypertension Coronary artery calcification seen on CAT scan Pseudofolliculitis barbae GERD (gastroesophageal reflux disease) Crohn's disease Dyslipidemia Surgical History Hx of LASIK H/O wisdom tooth extraction Hx of appendectomy Family History Father Myocardial infarction CVD (cardiovascular disease) Mother CVD (cardiovascular disease) Brother Hypothyroidism Substance use disorder Brother Substance use disorder Brother Substance use disorder Sister Substance use disorder Social History Housing: House Alcohol intake: current Alcohol intake frequency: holidays/special occasions only Patient Tobacco Use Status: Never used Tobacco e-Cigarette/Vaping Use: Never Used service: No Current occupational status: employed Sexual orientation: Lesbian/Jeter/Homosexual Cognitive needs: No Hearing needs: No Vision needs: Yes Review of Systems Const All systems reviewed & are unremarkable except as noted in HPI and below Assessment & Plan Assessment & Plan (1) Groin rash: Code(s): R21 - Rash and other nonspecific skin eruption Plan: Plan Patient was informed and verbally consented to the use of an ambient scribe for clinic note documentation during this visit 1. Dermatitis - Referral to dermatology for further evaluation and possible skin scraping/bx to determine the exact cause and appropriate treatment. - Consideration of oral steroids for management, with caution regarding potential worsening if fungal. Patient should stop using the prednisone if it exacerbates the rash. Orders: Referrals Dermatology Referral R21 - Rash and other nonspecific skin eruption Medications: New prednisone 50 mg PO QAM 5 tabs 0RF Coding Level of Care Code Est Pt Level 3 (11008) Diagnoses Groin rash R21
--- OUTSIDE RECORDS SUMMARY | 2025-05-02 08:18 | XMS_ITS | Patient Health Record ---
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 Name Role Phone KOMAL NOLASCO Unavailable [phone] ABRAMALEX HINES Unavailable [phone] Allergies No Known Allergies Reason For Referral No Information Medications Medication SIG (Take, Route, Frequency, Duration) Notes Start Date End Date Status Losartan Potassium 50 MG 1 tablet Orally Once a day Active Levothyroxine Sodium 150 MCG 1 tablet in the morning on an empty stomach Orally Once a day Active Ondansetron HCl 4 MG 1 tablet as needed for nausea Orally Once a day; Duration: 30 days 04/18/2024 Active Ferrous Sulfate 325 (65 Fe) MG 1 tablet Orally Three times a Week Active Rosuvastatin Calcium 40 MG 1 tablet Oral ly Once a day Active Zepbound 5 MG/0.5ML Inject 5 mg Subcutan eous weekly; Duration: 28 days 03/05/2025 Active Problems Problem Type SNOMED Code ICD Code Onset Dates Problem Status W/U Status Risk Notes Problem Obesity due to excess calories (088686533) Other obesity due to excess calories (E66.09) Active confirmed Problem Overweight (309827432) Overweight (E66.3) Active confirmed Problem Mixed hyperlipidemia (454199846) Mixed hyperlipidemia (E78.2) Active confirmed Problem Essential hypertension (25108642) Essential (primary) hypertension (I10) Active confirmed Problem Acquired hypothyroidism (217640239) Acquired hypothyroidism (E03.9) Active confirmed Problem Body mass index 30+ - obesity (946343638) Body mass index [BMI] 30.0-30.9, adult (Z68.30) Active confirmed Vital Signs Heart Rate 86 /min 04/18/2025 Blood pressure diastolic 80 mm Hg 04/18/2025 Oximetry 99 % 04/18/2025 Height 68 in 04/18/2025 Blood pressure systolic 106 mm Hg 04/18/2025 Weight 180 lbs 04/18/2025 BMI 27.37 kg/m2 04/18/2025 Encounters Encounter Location Date Provider Diagnosis [facility] [address] [address] 05/16/2024 KOMAL NOLASCO Other obesity due to excess calories E66.09 ; Acquired hypothyroidism E03.9 ; Essential (primary) hypertension I10 and Adult BMI 29.0-29.9 kg/sq m Z68.29 [facility] [address] [address] 06/27/2024 TALGARCIA NOLASCO BMI 27.0-27.9,adult Z68.27 ; Overweight (BMI 25.0-29.9) E66.3 ; Essential (primary) hypertension I10 and Acquired hypothyroidism E03.9 [facility] [address] [address] 08/01/2024 KOMAL NOLASCO Acquired hypothyroid ism E03.9 ; Essential (primary) hypertension I10 ; Other obesity due to excess calories E66.09 and Body mass index [BMI] 27.0-27.9, adult Z68.27 [facility] [address] [address] 09/28/2024 KOMAL NOLASCO Other obesity due to excess calories E66.09 ; Acquired hypothyroidism E03.9 and Essential (primary) hypertension I10 [facility] [address] [address] 12/05/2024 ALEX BIRKS Overweight E66.3 ; B RI 26.0-26.9,adult Z68.26 ; Nutritional counseling Z71.3 ; Essential (primary) hypertension I10 ; Acquired hypothyroidism E03.9 and Mixed hyperlipidemia E78.2 [facility] [address] [address] 03/05/2025 ALEX BIRKS Overweight E66.3 ; B RI 27.0-27.9,adult Z68.27 ; Nutritional counseling Z71.3 ; Essential (primary) hypertension I10 ; Acquired hypothyroidism E03.9 and Mixed hyperlipidemia E78.2 [facility] [address] [address] 04/18/2025 ALEX MOURA Overweight E66.3 ; B RI 27.0-27.9,adult Z68.27 ; Nutritional counseling Z71.3 ; Essential (primary) hypertension I10 ; Acquired hypothyroidism E03.9 and Mixed hyperlipidemia E78.[address] [facility] [address] [place] [address] 07/27/2024 KOMAL NOLASCO [facility] [address] [address] 02/14/2025 ALEX MOURA [facility] [address] [address] 03/05/2025 KOMAL NOLASCO [facility] [address] [address] 04/23/2025 ALEX MOURA Overweight E66.3 Assessments Encounter Date Diagnosis (ICD Code) Assessment Notes Treatment Notes Treatment Clinical Notes Section Notes 05/16/2024 Other obesity due to excess calories (ICD-10 - E66.09) Patient is here for weight management followup. We focused on significance of healthy lifestyle changes. We talked about need to track steps, work on portion control, read food labels, get adequate sleep, give adequate rest of the body, meditate, frequent nutritious meals including vegetables and healthy choices of meat and elimination of refined carbohydrates. We also talked about mindfulness and mindful eating. Particular focus was on mindless eating and relationship of sugar and weight gain Total time spent was 30 minutes with greater than 50% spent on counseling and coordinating care 05/16/2024 Acquired hypothyroidism (ICD-10 - E03.9) Patient is here for weight management followup. We focused on significance of healthy lifestyle changes. We talked about need to track steps, work on portion control, read food labels, get adequate sleep, give adequate rest of the body, meditate, frequent nutritious meals including vegetables and healthy choices of meat and elimination of refined carbohydrates. We also talked about mindfulness and mindful eating. Particular focus was on mindless eating and relationship of sugar and weight gain Total time spent was 30 minutes with greater than 50% spent on counseling and coordinating care 06/27/2024 BMI 27.0-27.9,adult (ICD-10 - Z68.27) 49-year-old M present for weight follow up. Recent labs with primary care provider unremarkable. Lost 8 pounds since last visit. Endorses high protein diet and exercising regularly. SECA scan shows phenomenal progress, as patient increased muscle mass and lost fat mass. Plan is to continue with Ozempic 0.5 weekly and begin a Wegovy PA. 06/27/2024 Overweight (BMI 25.0-29.9) (ICD-10 - E66.3) 49-year-old M present for weight follow up. Recent labs with primary care provider unremarkable. Lost 8 pounds since last visit. Endorses high protein diet and exercising regularly. SECA scan shows phenomenal progress, as patient increased muscle mass and lost fat mass. Plan is to continue with Ozempic 0.5 weekly and begin a Wegovy PA. 08/01/2024 Essential (primary) hypertension (ICD-10 - I10) Patient is here for weight management followup. We focused on significance of healthy lifestyle changes. We talked about need to track steps, work on portion control, read food labels, get adequate sleep, give adequate rest of the body, meditate, frequent nutritious meals including vegetables and healthy choices of meat and elimination of refined carbohydrates. We also talked about mindfulness and mindful eating. Particular focus was on elimination of refined carbohydrates and portion control Total time spent was 30 minutes with greater than 50% spent on counseling and coordinating care 08/01/2024 Acquired hypothyroidism (ICD-10 - E03.9) Patient is here for weight management followup. We focused on significance of healthy lifestyle changes. We talked about need to track steps, work on portion control, read food labels, get adequate sleep, give adequate rest of the body, meditate, frequent nutritious meals including vegetables and healthy choices of meat and elimination of refined carbohydrates. We also talked about mindfulness and mindful eating. Particular focus was on elimination of refined carbohydrates and portion control Total time spent was 30 minutes with greater than 50% spent on counseling and coordinating care 09/28/2024 Other obesity due to excess calories (ICD-10 - E66.09) Patient family history of hypertension hypothyroidism doing well with medical weight loss with diet and exercise. Patient is here for weight management followup. We focused on significance of healthy lifestyle changes. We talked about need to track steps, work on portion control, read food labels, get adequate sleep, give adequate rest of the body, meditate, frequent nutritious meals including vegetables and healthy choices of meat and elimination of refined carbohydrates. We also talked about mindfulness and mindful eating. Particular for focus was paid on preserving muscle mass high-protein diet a workout routine and eventually tapering down on Wegovy Total time spent was 30 minutes with greater than 50% spent on counseling and coordinating care 09/28/2024 Acquired hypothyroidism (ICD-10 - E03.9) Patient family history of hypertension hypothyroidism doing well with medical weight loss with diet and exercise. Patient is here for weight management followup. We focused on significance of healthy lifestyle changes. We talked about need to track steps, work on portion control, read food labels, get adequate sleep, give adequate rest of the body, meditate, frequent nutritious meals including vegetables and healthy choices of meat and elimination of refined carbohydrates. We also talked about mindfulness and mindful eating. Particular for focus was paid on preserving muscle mass high-protein diet a workout routine and eventually tapering down on Wegovy Total time spent was 30 minutes with greater than 50% spent on counseling and coordinating care 12/05/2024 Overweight (ICD-10 - E66.3) Patient is here for weight management follow-up. We focused on significance of healthy lifestyle changes. We talked about need to track steps with goal between 6000-10,000 steps daily, focus on portion control, read food labels, get adequate sleep between 7 to 8 hours, get adequate rest to the body, meditate, frequent nutritious meals including vegetables and healthy choices of lean meats, fish, and elimination of refined carbohydrates. We also talked about mindfulness and mindful eating. Particular focus was on continuing portion control, mindful eating, and physical activity on maintenance therapy. Total time of 30 minutes spent with patient with greater than 50% spent on counseling and coordinating care. 04/18/2024: Weight 202.3 pounds, BMI 30.76 05/16/2024: 190.1 pounds, BMI 28.9 06/27/2024: Weight 182.9 pounds, BMI 27.81 08/01/2024: Weight 180.1 pounds, BMI 27.38 09/28/2025: Weight 175 pounds, BMI 26.61 12/05/2024: Weight 177 pounds, BMI 26.91. Seca scan completed today and interpreted with the patient. Patient currently on Wegovy 1 mg once weekly for maintenance dosing. Reports good tolerance of medication without adverse effects. Reviewed goals of diet and exercise, patient is active at [facility]. Reviewed goals of hydration with 60 to 80 ounces daily. Plan at this time to maintain current dose of Wegovy. Discussed proper use of the medication and potential side effect profile including but not limited to nausea, constipation, abdominal pain, and heartburn. Given that now on maintenance phase he will follow-up in 3 months for further management. # Hypertension: Blood pressure stable at 112/78. Continue losartan 50 mg once daily. # Hypothyroidism: Patient follows with endocrinology, reports stable TSH. Continue levothyroxine 150 mcg 1 tablet once daily in the morning before food and other medications. # Hyperlipidemia: Continue rosuvastatin 40 mg once daily. Discussed importance of diet and lifestyle for maintaining healthy levels of cholesterol and preventing other comorbidities. Will continue to monitor. # Iron deficiency: Continue ferrous sulfate 65 mg 1 tablet 3 times weekly. Advised to take with source of vitamin C for greater absorption. All questions have been answered to patient's satisfaction. Patient verbalized understanding of diagnosis and treatments explained. Advised to call sooner prior to next visit it any questions/concerns arise. Case discussed with collaborating physician Reginaldo Nolasco who reviewed the assessment and plan. Chart, medications, labs, vital signs reviewed. Dictation was accomplished with the use of [employer] voice recognition software, which is prone to medical misidentifications and grammatical errors. This are unintentional and the practitioner does try to identify and correct these, but some could still be present. Please do not hesitate to contact practitioner for clarification. 12/05/2024 BMI 26.0-26.9,adult (ICD-10 - Z68.26) Patient is here for weight management follow-up. We focused on significance of healthy lifestyle changes. We talked about need to track steps with goal between 6000-10,000 steps daily, focus on portion control, read food labels, get adequate sleep between 7 to 8 hours, get adequate rest to the body, meditate, frequent nutritious meals including vegetables and healthy choices of lean meats, fish, and elimination of refined carbohydrates. We also talked about mindfulness and mindful eating. Particular focus was on continuing portion control, mindful eating, and physical activity on maintenance therapy. Total time of 30 minutes spent with patient with greater than 50% spent on counseling and coordinating care. 04/18/2024: Weight 202.3 pounds, BMI 30.76 05/16/2024: 190.1 pounds, BMI 28.9 06/27/2024: Weight 182.9 pounds, BMI 27.81 08/01/2024: Weight 180.1 pounds, BMI 27.38 09/28/2025: Weight 175 pounds, BMI 26.61 12/05/2024: Weight 177 pounds, BMI 26.91. Seca scan completed today and interpreted with the patient. Patient currently on Wegovy 1 mg once weekly for maintenance dosing. Reports good tolerance of medication without adverse effects. Reviewed goals of diet and exercise, patient is active at [employer]. Reviewed goals of hydration with 60 to 80 ounces daily. Plan at this time to maintain current dose of Wegovy. Discussed proper use of the medication and potential side effect profile including but not limited to nausea, constipation, abdominal pain, and heartburn. Given that now on maintenance phase he will follow-up in 3 months for further management. # Hypertension: Blood pressure stable at 112/78. Continue losartan 50 mg once daily. # Hypothyroidism: Patient follows with endocrinology, reports stable TSH. Continue levothyroxine 150 mcg 1 tablet once daily in the morning before food and other medications. # Hyperlipidemia: Continue rosuvastatin 40 mg once daily. Discussed importance of diet and lifestyle for maintaining healthy levels of cholesterol and preventing other comorbidities. Will continue to monitor. # Iron deficiency: Continue ferrous sulfate 65 mg 1 tablet 3 times weekly. Advised to take with source of vitamin C for greater absorption. All questions have been answered to patient's satisfaction. Patient verbalized understanding of diagnosis and treatments explained. Advised to call sooner prior to next visit it any questions/concerns arise. Case discussed with collaborating physician Reginaldo Nolasco who reviewed the assessment and plan. Chart, medications, labs, vital signs reviewed. Dictation was accomplished with the use of [employer] voice recognition software, which is prone to medical misidentifications and grammatical errors. This are unintentional and the practitioner does try to identify and correct these, but some could still be present. Please do not hesitate to contact practitioner for clarification. 03/05/2025 Overweight (ICD-10 - E66.3) Patient is here for weight management follow-up. We focused on significance of healthy lifestyle changes. We talked about need to track steps with goal between 6000-10,000 steps daily, focus on portion control, read food labels, get adequate sleep between 7 to 8 hours, get adequate rest to the body, meditate, frequent nutritious meals including vegetables and healthy choices of lean meats, fish, and elimination of refined carbohydrates. We also talked about mindfulness and mindful eating. Particular focus was on continuing portion control, mindful eating, and physical activity on maintenance therapy. Total time of 30 minutes spent with patient with greater than 50% spent on counseling and coordinating care. 04/18/2024: Weight 202.3 pounds, BMI 30.76 05/16/2024: 190.1 pounds, BMI 28.9 06/27/2024: Weight 182.9 pounds, BMI 27.81 08/01/2024: Weight 180.1 pounds, BMI 27.38 09/28/2025: Weight 175 pounds, BMI 26.61 12/05/2024: Weight 177 pounds, BMI 26.91. Seca scan completed today and interpreted with the patient. Patient currently on Wegovy 1 mg once weekly for maintenance dosing. Reports good tolerance of medication without adverse effects. Reviewed goals of diet and exercise, patient is active at [employer]. Reviewed goals of hydration with 60 to 80 ounces daily. Plan at this time to maintain current dose of Wegovy. Discussed proper use of the medication and potential side effect profile including but not limited to nausea, constipation, abdominal pain, and heartburn. Given that now on maintenance phase he will follow-up in 3 months for further management. 03/05/2025: Weight 181 pounds, BMI 27.52. Seca scan completed and discussed with the patient. Patient has had a slight fluctuation of his weight from his previous visit by about 4 pounds. Has had a slight increase of fat mass by about 1 pound. Visceral adiposity is still stable at 1.5 and within normal limits. Reports several weeks of adverse symptoms including increased belching, increased gas, and diarrhea. Has been supplementing with probiotics and prebiotic's. Discussed potential benefit of transitioning to Zepbound for continued weight control and better tolerance. Advised that medication will require prior authorization. If not covered patient will otherwise continue Wegovy weekly or biweekly. Follow-up in 6 weeks. # Hypertension: Blood pressure stable at 110/70. Continue losartan 50 mg once daily. # Hypothyroidism: Patient follows with endocrinology, reports stable TSH. Continue levothyroxine 150 mcg 1 tablet once daily in the morning before food and other medications. # Hyperlipidemia: Continue rosuvastatin 40 mg once daily. Discussed importance of diet and lifestyle for maintaining healthy levels of cholesterol and preventing other comorbidities. Will continue to monitor. # Iron deficiency: Continue ferrous sulfate 65 mg 1 tablet 3 times weekly. Advised to take with source of vitamin C for greater absorption. All questions have been answered to patient's satisfaction. Patient verbalized understanding of diagnosis and treatments explained. Advised to call sooner prior to next visit it any questions/concerns arise. Case discussed with collaborating physician Reginaldo Nolasco who reviewed the assessment and plan. Chart, medications, labs, vital signs reviewed. Dictation was accomplished with the use of [employer] voice recognition software, which is prone to medical misidentifications and grammatical errors. This are unintentional and the practitioner does try to identify and correct these, but some could still be present. Please do not hesitate to contact practitioner for clarification. 03/05/2025 BMI 27.0-27.9,adult (ICD-10 - Z68.27) Patient is here for weight management follow-up. We focused on significance of healthy lifestyle changes. We talked about need to track steps with goal between 6000-10,000 steps daily, focus on portion control, read food labels, get adequate sleep between 7 to 8 hours, get adequate rest to the body, meditate, frequent nutritious meals including vegetables and healthy choices of lean meats, fish, and elimination of refined carbohydrates. We also talked about mindfulness and mindful eating. Particular focus was on continuing portion control, mindful eating, and physical activity on maintenance therapy. Total time of 30 minutes spent with patient with greater than 50% spent on counseling and coordinating care. 04/18/2024: Weight 202.3 pounds, BMI 30.76 05/16/2024: 190.1 pounds, BMI 28.9 06/27/2024: Weight 182.9 pounds, BMI 27.81 08/01/2024: Weight 180.1 pounds, BMI 27.38 09/28/2025: Weight 175 pounds, BMI 26.61 12/05/2024: Weight 177 pounds, BMI 26.91. Seca scan completed today and interpreted with the patient. Patient currently on Wegovy 1 mg once weekly for maintenance dosing. Reports good tolerance of medication without adverse effects. Reviewed goals of diet and exercise, patient is active at [employer]. Reviewed goals of hydration with 60 to 80 ounces daily. Plan at this time to maintain current dose of Wegovy. Discussed proper use of the medication and potential side effect profile including but not limited to nausea, constipation, abdominal pain, and heartburn. Given that now on maintenance phase he will follow-up in 3 months for further management. 03/05/2025: Weight 181 pounds, BMI 27.52. Seca scan completed and discussed with the patient. Patient has had a slight fluctuation of his weight from his previous visit by about 4 pounds. Has had a slight increase of fat mass by about 1 pound. Visceral adiposity is still stable at 1.5 and within normal limits. Reports several weeks of adverse symptoms including increased belching, increased gas, and diarrhea. Has been supplementing with probiotics and prebiotic's. Discussed potential benefit of transitioning to Zepbound for continued weight control and better tolerance. Advised that medication will require prior authorization. If not covered patient will otherwise continue Wegovy weekly or biweekly. Follow-up in 6 weeks. # Hypertension: Blood pressure stable at 110/70. Continue losartan 50 mg once daily. # Hypothyroidism: Patient follows with endocrinology, reports stable TSH. Continue levothyroxine 150 mcg 1 tablet once daily in the morning before food and other medications. # Hyperlipidemia: Continue rosuvastatin 40 mg once daily. Discussed importance of diet and lifestyle for maintaining healthy levels of cholesterol and preventing other comorbidities. Will continue to monitor. # Iron deficiency: Continue ferrous sulfate 65 mg 1 tablet 3 times weekly. Advised to take with source of vitamin C for greater absorption. All questions have been answered to patient's satisfaction. Patient verbalized understanding of diagnosis and treatments explained. Advised to call sooner prior to next visit it any questions/concerns arise. Case discussed with collaborating physician Reginaldo Nolasco who reviewed the assessment and plan. Chart, medications, labs, vital signs reviewed. Dictation was accomplished with the use of [employer] voice recognition software, which is prone to medical misidentifications and grammatical errors. This are unintentional and the practitioner does try to identify and correct these, but some could still be present. Please do not hesitate to contact practitioner for clarification. 04/18/2025 Overweight (ICD-10 - E66.3) Patient is here for weight management follow-up. We focused on significance of healthy lifestyle changes. We talked about need to track steps with goal between 6000-10,000 steps daily, focus on portion control, read food labels, get adequate sleep between 7 to 8 hours, get adequate rest to the body, meditate, frequent nutritious meals including vegetables and healthy choices of lean meats, fish, and elimination of refined carbohydrates. We also talked about mindfulness and mindful eating. Particular focus was on continuing portion control, mindful eating, and physical activity on maintenance therapy. Total time of 30 minutes spent with patient with greater than 50% spent on counseling and coordinating care. 04/18/2024: Weight 202.3 pounds, BMI 30.76 05/16/2024: 190.1 pounds, BMI 28.9 06/27/2024: Weight 182.9 pounds, BMI 27.81 08/01/2024: Weight 180.1 pounds, BMI 27.38 09/28/2025: Weight 175 pounds, BMI 26.61 12/05/2024: Weight 177 pounds, BMI 26.91. Seca scan completed today and interpreted with the patient. Patient currently on Wegovy 1 mg once weekly for maintenance dosing. Reports good tolerance of medication without adverse effects. Reviewed goals of diet and exercise, patient is active at [employer]. Reviewed goals of hydration with 60 to 80 ounces daily. Plan at this time to maintain current dose of Wegovy. Discussed proper use of the medication and potential side effect profile including but not limited to nausea, constipation, abdominal pain, and heartburn. Given that now on maintenance phase he will follow-up in 3 months for further management. 03/05/2025: Weight 181 pounds, BMI 27.52. Seca scan completed and discussed with the patient. Patient has had a slight fluctuation of his weight from his previous visit by about 4 pounds. Has had a slight increase of fat mass by about 1 pound. Visceral adiposity is still stable at 1.5 and within normal limits. Reports several weeks of adverse symptoms including increased belching, increased gas, and diarrhea. Has been supplementing with probiotics and prebiotic's. Discussed potential benefit of transitioning to Zepbound for continued weight control and better tolerance. Advised that medication will require prior authorization. If not covered patient will otherwise continue Wegovy weekly or biweekly. Follow-up in 6 weeks. 04/18/2025: Weight 180 pounds, BMI 27.37. Seca scan completed and discussed with the patient. Weight overall is stable since last visit 6 weeks ago. Has maintained stable fat mass at 45 pounds. Fat mass index today is 6.7, slightly increased. Maintaining 63 pounds of muscle mass. Visceral adiposity this morning is 2.8 L. Currently is on Zepbound 2.5 mg weekly. No significant side effects, transition from Wegovy 1 mg weekly. Discussed goals of diet and exercise. Plan is to increase dose to 5 mg weekly and follow-up in approximately 3 months. # Hypertension: Blood pressure stable at 106/80. Continue losartan 50 mg once daily. # Hypothyroidism: Patient follows with endocrinology, reports stable TSH. Continue levothyroxine 150 mcg 1 tablet once daily in the morning before food and other medications. # Hyperlipidemia: Continue rosuvastatin 40 mg once daily. Discussed importance of diet and lifestyle for maintaining healthy levels of cholesterol and preventing other comorbidities. Will continue to monitor. # Iron deficiency: Continue ferrous sulfate 65 mg 1 tablet 3 times weekly. Advised to take with source of vitamin C for greater absorption. All questions have been answered to patient's satisfaction. Patient verbalized understanding of diagnosis and treatments explained. Advised to call sooner prior to next visit it any questions/concerns arise. Case discussed with collaborating physician Reginaldo Nolasco who reviewed the assessment and plan. Chart, medications, labs, vital signs reviewed. Dictation was accomplished with the use of [employer] voice recognition software, which is prone to medical misidentifications and grammatical errors. This are unintentional and the practitioner does try to identify and correct these, but some could still be present. Please do not hesitate to contact practitioner for clarification. 04/18/2025 BMI 27.0-27.9,adult (ICD-10 - Z68.27) Patient is here for weight management follow-up. We focused on significance of healthy lifestyle changes. We talked about need to track steps with goal between 6000-10,000 steps daily, focus on portion control, read food labels, get adequate sleep between 7 to 8 hours, get adequate rest to the body, meditate, frequent nutritious meals including vegetables and healthy choices of lean meats, fish, and elimination of refined carbohydrates. We also talked about mindfulness and mindful eating. Particular focus was on continuing portion control, mindful eating, and physical activity on maintenance therapy. Total time of 30 minutes spent with patient with greater than 50% spent on counseling and coordinating care. 04/18/2024: Weight 202.3 pounds, BMI 30.76 05/16/2024: 190.1 pounds, BMI 28.9 06/27/2024: Weight 182.9 pounds, BMI 27.81 08/01/2024: Weight 180.1 pounds, BMI 27.38 09/28/2025: Weight 175 pounds, BMI 26.61 12/05/2024: Weight 177 pounds, BMI 26.91. Seca scan completed today and interpreted with the patient. Patient currently on Wegovy 1 mg once weekly for maintenance dosing. Reports good tolerance of medication without adverse effects. Reviewed goals of diet and exercise, patient is active at [facility]. Reviewed goals of hydration with 60 to 80 ounces daily. Plan at this time to maintain current dose of Wegovy. Discussed proper use of the medication and potential side effect profile including but not limited to nausea, constipation, abdominal pain, and heartburn. Given that now on maintenance phase he will follow-up in 3 months for further management. 03/05/2025: Weight 181 pounds, BMI 27.52. Seca scan completed and discussed with the patient. Patient has had a slight fluctuation of his weight from his previous visit by about 4 pounds. Has had a slight increase of fat mass by about 1 pound. Visceral adiposity is still stable at 1.5 and within normal limits. Reports several weeks of adverse symptoms including increased belching, increased gas, and diarrhea. Has been supplementing with probiotics and prebiotic's. Discussed potential benefit of transitioning to Zepbound for continued weight control and better tolerance. Advised that medication will require prior authorization. If not covered patient will otherwise continue Wegovy weekly or biweekly. Follow-up in 6 weeks. 04/18/2025: Weight 180 pounds, BMI 27.37. Seca scan completed and discussed with the patient. Weight overall is stable since last visit 6 weeks ago. Has maintained stable fat mass at 45 pounds. Fat mass index today is 6.7, slightly increased. Maintaining 63 pounds of muscle mass. Visceral adiposity this morning is 2.8 L. Currently is on Zepbound 2.5 mg weekly. No significant side effects, transition from Wegovy 1 mg weekly. Discussed goals of diet and exercise. Plan is to increase dose to 5 mg weekly and follow-up in approximately 3 months. # Hypertension: Blood pressure stable at 106/80. Continue losartan 50 mg once daily. # Hypothyroidism: Patient follows with endocrinology, reports stable TSH. Continue levothyroxine 150 mcg 1 tablet once daily in the morning before food and other medications. # Hyperlipidemia: Continue rosuvastatin 40 mg once daily. Discussed importance of diet and lifestyle for maintaining healthy levels of cholesterol and preventing other comorbidities. Will continue to monitor. # Iron deficiency: Continue ferrous sulfate 65 mg 1 tablet 3 times weekly. Advised to take with source of vitamin C for greater absorption. All questions have been answered to patient's satisfaction. Patient verbalized understanding of diagnosis and treatments explained. Advised to call sooner prior to next visit it any questions/concerns arise. Case discussed with collaborating physician Reginaldo Nolasco who reviewed the assessment and plan. Chart, medications, labs, vital signs reviewed. Dictation was accomplished with the use of [employer] voice recognition software, which is prone to medical misidentifications and grammatical errors. This are unintentional and the practitioner does try to identify and correct these, but some could still be present. Please do not hesitate to contact practitioner for clarification. 04/23/2025 Overweight (ICD-10 - E66.3) 04/18/2025 Nutritional counseling (ICD-10 - Z71.3) Patient is here for weight management follow-up. We focused on significance of healthy lifestyle changes. We talked about need to track steps with goal between 6000-10,000 steps daily, focus on portion control, read food labels, get adequate sleep between 7 to 8 hours, get adequate rest to the body, meditate, frequent nutritious meals including vegetables and healthy choices of lean meats, fish, and elimination of refined carbohydrates. We also talked about mindfulness and mindful eating. Particular focus was on continuing portion control, mindful eating, and physical activity on maintenance therapy. Total time of 30 minutes spent with patient with greater than 50% spent on counseling and coordinating care. 04/18/2024: Weight 202.3 pounds, BMI 30.76 05/16/2024: 190.1 pounds, BMI 28.9 06/27/2024: Weight 182.9 pounds, BMI 27.81 08/01/2024: Weight 180.1 pounds, BMI 27.38 09/28/2025: Weight 175 pounds, BMI 26.61 12/05/2024: Weight 177 pounds, BMI 26.91. Seca scan completed today and interpreted with the patient. Patient currently on Wegovy 1 mg once weekly for maintenance dosing. Reports good tolerance of medication without adverse effects. Reviewed goals of diet and exercise, patient is active at [employer]. Reviewed goals of hydration with 60 to 80 ounces daily. Plan at this time to maintain current dose of Wegovy. Discussed proper use of the medication and potential side effect profile including but not limited to nausea, constipation, abdominal pain, and heartburn. Given that now on maintenance phase he will follow-up in 3 months for further management. 03/05/2025: Weight 181 pounds, BMI 27.52. Seca scan completed and discussed with the patient. Patient has had a slight fluctuation of his weight from his previous visit by about 4 pounds. Has had a slight increase of fat mass by about 1 pound. Visceral adiposity is still stable at 1.5 and within normal limits. Reports several weeks of adverse symptoms including increased belching, increased gas, and diarrhea. Has been supplementing with probiotics and prebiotic's. Discussed potential benefit of transitioning to Zepbound for continued weight control and better tolerance. Advised that medication will require prior authorization. If not covered patient will otherwise continue Wegovy weekly or biweekly. Follow-up in 6 weeks. 04/18/2025: Weight 180 pounds, BMI 27.37. Seca scan completed and discussed with the patient. Weight overall is stable since last visit 6 weeks ago. Has maintained stable fat mass at 45 pounds. Fat mass index today is 6.7, slightly increased. Maintaining 63 pounds of muscle mass. Visceral adiposity this morning is 2.8 L. Currently is on Zepbound 2.5 mg weekly. No significant side effects, transition from Wegovy 1 mg weekly. Discussed goals of diet and exercise. Plan is to increase dose to 5 mg weekly and follow-up in approximately 3 months. # Hypertension: Blood pressure stable at 106/80. Continue losartan 50 mg once daily. # Hypothyroidism: Patient follows with endocrinology, reports stable TSH. Continue levothyroxine 150 mcg 1 tablet once daily in the morning before food and other medications. # Hyperlipidemia: Continue rosuvastatin 40 mg once daily. Discussed importance of diet and lifestyle for maintaining healthy levels of cholesterol and preventing other comorbidities. Will continue to monitor. # Iron deficiency: Continue ferrous sulfate 65 mg 1 tablet 3 times weekly. Advised to take with source of vitamin C for greater absorption. All questions have been answered to patient's satisfaction. Patient verbalized understanding of diagnosis and treatments explained. Advised to call sooner prior to next visit it any questions/concerns arise. Case discussed with collaborating physician Reginaldo Nolasco who reviewed the assessment and plan. Chart, medications, labs, vital signs reviewed. Dictation was accomplished with the use of [employer] voice recognition software, which is prone to medical misidentifications and grammatical errors. This are unintentional and the practitioner does try to identify and correct these, but some could still be present. Please do not hesitate to contact practitioner for clarification. 03/05/2025 Nutritional counseling (ICD-10 - Z71.3) Patient is here for weight management follow-up. We focused on significance of healthy lifestyle changes. We talked about need to track steps with goal between 6000-10,000 steps daily, focus on portion control, read food labels, get adequate sleep between 7 to 8 hours, get adequate rest to the body, meditate, frequent nutritious meals including vegetables and healthy choices of lean meats, fish, and elimination of refined carbohydrates. We also talked about mindfulness and mindful eating. Particular focus was on continuing portion control, mindful eating, and physical activity on maintenance therapy. Total time of 30 minutes spent with patient with greater than 50% spent on counseling and coordinating care. 04/18/2024: Weight 202.3 pounds, BMI 30.76 05/16/2024: 190.1 pounds, BMI 28.9 06/27/2024: Weight 182.9 pounds, BMI 27.81 08/01/2024: Weight 180.1 pounds, BMI 27.38 09/28/2025: Weight 175 pounds, BMI 26.61 12/05/2024: Weight 177 pounds, BMI 26.91. Seca scan completed today and interpreted with the patient. Patient currently on Wegovy 1 mg once weekly for maintenance dosing. Reports good tolerance of medication without adverse effects. Reviewed goals of diet and exercise, patient is active at [employer]. Reviewed goals of hydration with 60 to 80 ounces daily. Plan at this time to maintain current dose of Wegovy. Discussed proper use of the medication and potential side effect profile including but not limited to nausea, constipation, abdominal pain, and heartburn. Given that now on maintenance phase he will follow-up in 3 months for further management. 03/05/2025: Weight 181 pounds, BMI 27.52. Seca scan completed and discussed with the patient. Patient has had a slight fluctuation of his weight from his previous visit by about 4 pounds. Has had a slight increase of fat mass by about 1 pound. Visceral adiposity is still stable at 1.5 and within normal limits. Reports several weeks of adverse symptoms including increased belching, increased gas, and diarrhea. Has been supplementing with probiotics and prebiotic's. Discussed potential benefit of transitioning to Zepbound for continued weight control and better tolerance. Advised that medication will require prior authorization. If not covered patient will otherwise continue Wegovy weekly or biweekly. Follow-up in 6 weeks. # Hypertension: Blood pressure stable at 110/70. Continue losartan 50 mg once daily. # Hypothyroidism: Patient follows with endocrinology, reports stable TSH. Continue levothyroxine 150 mcg 1 tablet once daily in the morning before food and other medications. # Hyperlipidemia: Continue rosuvastatin 40 mg once daily. Discussed importance of diet and lifestyle for maintaining healthy levels of cholesterol and preventing other comorbidities. Will continue to monitor. # Iron deficiency: Continue ferrous sulfate 65 mg 1 tablet 3 times weekly. Advised to take with source of vitamin C for greater absorption. All questions have been answered to patient's satisfaction. Patient verbalized understanding of diagnosis and treatments explained. Advised to call sooner prior to next visit it any questions/concerns arise. Case discussed with collaborating physician Reginaldo Nolasco who reviewed the assessment and plan. Chart, medications, labs, vital signs reviewed. Dictation was accomplished with the use of [employer] voice recognition software, which is prone to medical misidentifications and grammatical errors. This are unintentional and the practitioner does try to identify and correct these, but some could still be present. Please do not hesitate to contact practitioner for clarification. 12/05/2024 Nutritional counseling (ICD-10 - Z71.3) Patient is here for weight management follow-up. We focused on significance of healthy lifestyle changes. We talked about need to track steps with goal between 6000-10,000 steps daily, focus on portion control, read food labels, get adequate sleep between 7 to 8 hours, get adequate rest to the body, meditate, frequent nutritious meals including vegetables and healthy choices of lean meats, fish, and elimination of refined carbohydrates. We also talked about mindfulness and mindful eating. Particular focus was on continuing portion control, mindful eating, and physical activity on maintenance therapy. Total time of 30 minutes spent with patient with greater than 50% spent on counseling and coordinating care. 04/18/2024: Weight 202.3 pounds, BMI 30.76 05/16/2024: 190.1 pounds, BMI 28.9 06/27/2024: Weight 182.9 pounds, BMI 27.81 08/01/2024: Weight 180.1 pounds, BMI 27.38 09/28/2025: Weight 175 pounds, BMI 26.61 12/05/2024: Weight 177 pounds, BMI 26.91. Seca scan completed today and interpreted with the patient. Patient currently on Wegovy 1 mg once weekly for maintenance dosing. Reports good tolerance of medication without adverse effects. Reviewed goals of diet and exercise, patient is active at [employer]. Reviewed goals of hydration with 60 to 80 ounces daily. Plan at this time to maintain current dose of Wegovy. Discussed proper use of the medication and potential side effect profile including but not limited to nausea, constipation, abdominal pain, and heartburn. Given that now on maintenance phase he will follow-up in 3 months for further management. # Hypertension: Blood pressure stable at 112/78. Continue losartan 50 mg once daily. # Hypothyroidism: Patient follows with endocrinology, reports stable TSH. Continue levothyroxine 150 mcg 1 tablet once daily in the morning before food and other medications. # Hyperlipidemia: Continue rosuvastatin 40 mg once daily. Discussed importance of diet and lifestyle for maintaining healthy levels of cholesterol and preventing other comorbidities. Will continue to monitor. # Iron deficiency: Continue ferrous sulfate 65 mg 1 tablet 3 times weekly. Advised to take with source of vitamin C for greater absorption. All questions have been answered to patient's satisfaction. Patient verbalized understanding of diagnosis and treatments explained. Advised to call sooner prior to next visit it any questions/concerns arise. Case discussed with collaborating physician Reginaldo Nolasco who reviewed the assessment and plan. Chart, medications, labs, vital signs reviewed. Dictation was accomplished with the use of [employer] voice recognition software, which is prone to medical misidentifications and grammatical errors. This are unintentional and the practitioner does try to identify and correct these, but some could still be present. Please do not hesitate to contact practitioner for clarification. 09/28/2024 Essential (primary) hypertension (ICD-10 - I10) Patient family history of hypertension hypothyroidism doing well with medical weight loss with diet and exercise. Patient is here for weight management followup. We focused on significance of healthy lifestyle changes. We talked about need to track steps, work on portion control, read food labels, get adequate sleep, give adequate rest of the body, meditate, frequent nutritious meals including vegetables and healthy choices of meat and elimination of refined carbohydrates. We also talked about mindfulness and mindful eating. Particular for focus was paid on preserving muscle mass high-protein diet a workout routine and eventually tapering down on Wegovy Total time spent was 30 minutes with greater than 50% spent on counseling and coordinating care 08/01/2024 Other obesity due to excess calories (ICD-10 - E66.09) Patient is here for weight management followup. We focused on significance of healthy lifestyle changes. We talked about need to track steps, work on portion control, read food labels, get adequate sleep, give adequate rest of the body, meditate, frequent nutritious meals including vegetables and healthy choices of meat and elimination of refined carbohydrates. We also talked about mindfulness and mindful eating. Particular focus was on elimination of refined carbohydrates and portion control Total time spent was 30 minutes with greater than 50% spent on counseling and coordinating care 06/27/2024 Essential (primary) hypertension (ICD-10 - I10) 49-year-old M present for weight follow up. Recent labs with primary care provider unremarkable. Lost 8 pounds since last visit. Endorses high protein diet and exercising regularly. SECA scan shows phenomenal progress, as patient increased muscle mass and lost fat mass. Plan is to continue with Ozempic 0.5 weekly and begin a Wegovy PA. 05/16/2024 Essential (primary) hypertension (ICD-10 - I10) Patient is here for weight management followup. We focused on significance of healthy lifestyle changes. We talked about need to track steps, work on portion control, read food labels, get adequate sleep, give adequate rest of the body, meditate, frequent nutritious meals including vegetables and healthy choices of meat and elimination of refined carbohydrates. We also talked about mindfulness and mindful eating. Particular focus was on mindless eating and relationship of sugar and weight gain Total time spent was 30 minutes with greater than 50% spent on counseling and coordinating care 05/16/2024 Adult BMI 29.0-29.9 kg/sq m (ICD-10 - Z68.29) Patient is here for weight management followup. We focused on significance of healthy lifestyle changes. We talked about need to track steps, work on portion control, read food labels, get adequate sleep, give adequate rest of the body, meditate, frequent nutritious meals including vegetables and healthy choices of meat and elimination of refined carbohydrates. We also talked about mindfulness and mindful eating. Particular focus was on mindless eating and relationship of sugar and weight gain Total time spent was 30 minutes with greater than 50% spent on counseling and coordinating care 06/27/2024 Acquired hypothyroidism (ICD-10 - E03.9) 49-year-old M present for weight follow up. Recent labs with primary care provider unremarkable. Lost 8 pounds since last visit. Endorses high protein diet and exercising regularly. SECA scan shows phenomenal progress, as patient increased muscle mass and lost fat mass. Plan is to continue with Ozempic 0.5 weekly and begin a Wegovy PA. 08/01/2024 Body mass index [BMI] 27.0-27.9, adult (ICD-10 - Z68.27) Patient is here for weight management followup. We focused on significance of healthy lifestyle changes. We talked about need to track steps, work on portion control, read food labels, get adequate sleep, give adequate rest of the body, meditate, frequent nutritious meals including vegetables and healthy choices of meat and elimination of refined carbohydrates. We also talked about mindfulness and mindful eating. Particular focus was on elimination of refined carbohydrates and portion control Total time spent was 30 minutes with greater than 50% spent on counseling and coordinating care 12/05/2024 Essential (primary) hypertension (ICD-10 - I10) Patient is here for weight management follow-up. We focused on significance of healthy lifestyle changes. We talked about need to track steps with goal between 6000-10,000 steps daily, focus on portion control, read food labels, get adequate sleep between 7 to 8 hours, get adequate rest to the body, meditate, frequent nutritious meals including vegetables and healthy choices of lean meats, fish, and elimination of refined carbohydrates. We also talked about mindfulness and mindful eating. Particular focus was on continuing portion control, mindful eating, and physical activity on maintenance therapy. Total time of 30 minutes spent with patient with greater than 50% spent on counseling and coordinating care. 04/18/2024: Weight 202.3 pounds, BMI 30.76 05/16/2024: 190.1 pounds, BMI 28.9 06/27/2024: Weight 182.9 pounds, BMI 27.81 08/01/2024: Weight 180.1 pounds, BMI 27.38 09/28/2025: Weight 175 pounds, BMI 26.61 12/05/2024: Weight 177 pounds, BMI 26.91. Seca scan completed today and interpreted with the patient. Patient currently on Wegovy 1 mg once weekly for maintenance dosing. Reports good tolerance of medication without adverse effects. Reviewed goals of diet and exercise, patient is active at [facility]. Reviewed goals of hydration with 60 to 80 ounces daily. Plan at this time to maintain current dose of Wegovy. Discussed proper use of the medication and potential side effect profile including but not limited to nausea, constipation, abdominal pain, and heartburn. Given that now on maintenance phase he will follow-up in 3 months for further management. # Hypertension: Blood pressure stable at 112/78. Continue losartan 50 mg once daily. # Hypothyroidism: Patient follows with endocrinology, reports stable TSH. Continue levothyroxine 150 mcg 1 tablet once daily in the morning before food and other medications. # Hyperlipidemia: Continue rosuvastatin 40 mg once daily. Discussed importance of diet and lifestyle for maintaining healthy levels of cholesterol and preventing other comorbidities. Will continue to monitor. # Iron deficiency: Continue ferrous sulfate 65 mg 1 tablet 3 times weekly. Advised to take with source of vitamin C for greater absorption. All questions have been answered to patient's satisfaction. Patient verbalized understanding of diagnosis and treatments explained. Advised to call sooner prior to next visit it any questions/concerns arise. Case discussed with collaborating physician Reginaldo Nolasco who reviewed the assessment and plan. Chart, medications, labs, vital signs reviewed. Dictation was accomplished with the use of [employer] voice recognition software, which is prone to medical misidentifications and grammatical errors. This are unintentional and the practitioner does try to identify and correct these, but some could still be present. Please do not hesitate to contact practitioner for clarification. 03/05/2025 Essential (primary) hypertension (ICD-10 - I10) Patient is here for weight management follow-up. We focused on significance of healthy lifestyle changes. We talked about need to track steps with goal between 6000-10,000 steps daily, focus on portion control, read food labels, get adequate sleep between 7 to 8 hours, get adequate rest to the body, meditate, frequent nutritious meals including vegetables and healthy choices of lean meats, fish, and elimination of refined carbohydrates. We also talked about mindfulness and mindful eating. Particular focus was on continuing portion control, mindful eating, and physical activity on maintenance therapy. Total time of 30 minutes spent with patient with greater than 50% spent on counseling and coordinating care. 04/18/2024: Weight 202.3 pounds, BMI 30.76 05/16/2024: 190.1 pounds, BMI 28.9 06/27/2024: Weight 182.9 pounds, BMI 27.81 08/01/2024: Weight 180.1 pounds, BMI 27.38 09/28/2025: Weight 175 pounds, BMI 26.61 12/05/2024: Weight 177 pounds, BMI 26.91. Seca scan completed today and interpreted with the patient. Patient currently on Wegovy 1 mg once weekly for maintenance dosing. Reports good tolerance of medication without adverse effects. Reviewed goals of diet and exercise, patient is active at [facility]. Reviewed goals of hydration with 60 to 80 ounces daily. Plan at this time to maintain current dose of Wegovy. Discussed proper use of the medication and potential side effect profile including but not limited to nausea, constipation, abdominal pain, and heartburn. Given that now on maintenance phase he will follow-up in 3 months for further management. 03/05/2025: Weight 181 pounds, BMI 27.52. Seca scan completed and discussed with the patient. Patient has had a slight fluctuation of his weight from his previous visit by about 4 pounds. Has had a slight increase of fat mass by about 1 pound. Visceral adiposity is still stable at 1.5 and within normal limits. Reports several weeks of adverse symptoms including increased belching, increased gas, and diarrhea. Has been supplementing with probiotics and prebiotic's. Discussed potential benefit of transitioning to Zepbound for continued weight control and better tolerance. Advised that medication will require prior authorization. If not covered patient will otherwise continue Wegovy weekly or biweekly. Follow-up in 6 weeks. # Hypertension: Blood pressure stable at 110/70. Continue losartan 50 mg once daily. # Hypothyroidism: Patient follows with endocrinology, reports stable TSH. Continue levothyroxine 150 mcg 1 tablet once daily in the morning before food and other medications. # Hyperlipidemia: Continue rosuvastatin 40 mg once daily. Discussed importance of diet and lifestyle for maintaining healthy levels of cholesterol and preventing other comorbidities. Will continue to monitor. # Iron deficiency: Continue ferrous sulfate 65 mg 1 tablet 3 times weekly. Advised to take with source of vitamin C for greater absorption. All questions have been answered to patient's satisfaction. Patient verbalized understanding of diagnosis and treatments explained. Advised to call sooner prior to next visit it any questions/concerns arise. Case discussed with collaborating physician Reginaldo Nolasco who reviewed the assessment and plan. Chart, medications, labs, vital signs reviewed. Dictation was accomplished with the use of [employer] voice recognition software, which is prone to medical misidentifications and grammatical errors. This are unintentional and the practitioner does try to identify and correct these, but some could still be present. Please do not hesitate to contact practitioner for clarification. 04/18/2025 Essential (primary) hypertension (ICD-10 - I10) Patient is here for weight management follow-up. We focused on significance of healthy lifestyle changes. We talked about need to track steps with goal between 6000-10,000 steps daily, focus on portion control, read food labels, get adequate sleep between 7 to 8 hours, get adequate rest to the body, meditate, frequent nutritious meals including vegetables and healthy choices of lean meats, fish, and elimination of refined carbohydrates. We also talked about mindfulness and mindful eating. Particular focus was on continuing portion control, mindful eating, and physical activity on maintenance therapy. Total time of 30 minutes spent with patient with greater than 50% spent on counseling and coordinating care. 04/18/2024: Weight 202.3 pounds, BMI 30.76 05/16/2024: 190.1 pounds, BMI 28.9 06/27/2024: Weight 182.9 pounds, BMI 27.81 08/01/2024: Weight 180.1 pounds, BMI 27.38 09/28/2025: Weight 175 pounds, BMI 26.61 12/05/2024: Weight 177 pounds, BMI 26.91. Seca scan completed today and interpreted with the patient. Patient currently on Wegovy 1 mg once weekly for maintenance dosing. Reports good tolerance of medication without adverse effects. Reviewed goals of diet and exercise, patient is active at [employer]. Reviewed goals of hydration with 60 to 80 ounces daily. Plan at this time to maintain current dose of Wegovy. Discussed proper use of the medication and potential side effect profile including but not limited to nausea, constipation, abdominal pain, and heartburn. Given that now on maintenance phase he will follow-up in 3 months for further management. 03/05/2025: Weight 181 pounds, BMI 27.52. Seca scan completed and discussed with the patient. Patient has had a slight fluctuation of his weight from his previous visit by about 4 pounds. Has had a slight increase of fat mass by about 1 pound. Visceral adiposity is still stable at 1.5 and within normal limits. Reports several weeks of adverse symptoms including increased belching, increased gas, and diarrhea. Has been supplementing with probiotics and prebiotic's. Discussed potential benefit of transitioning to Zepbound for continued weight control and better tolerance. Advised that medication will require prior authorization. If not covered patient will otherwise continue Wegovy weekly or biweekly. Follow-up in 6 weeks. 04/18/2025: Weight 180 pounds, BMI 27.37. Seca scan completed and discussed with the patient. Weight overall is stable since last visit 6 weeks ago. Has maintained stable fat mass at 45 pounds. Fat mass index today is 6.7, slightly increased. Maintaining 63 pounds of muscle mass. Visceral adiposity this morning is 2.8 L. Currently is on Zepbound 2.5 mg weekly. No significant side effects, transition from Wegovy 1 mg weekly. Discussed goals of diet and exercise. Plan is to increase dose to 5 mg weekly and follow-up in approximately 3 months. # Hypertension: Blood pressure stable at 106/80. Continue losartan 50 mg once daily. # Hypothyroidism: Patient follows with endocrinology, reports stable TSH. Continue levothyroxine 150 mcg 1 tablet once daily in the morning before food and other medications. # Hyperlipidemia: Continue rosuvastatin 40 mg once daily. Discussed importance of diet and lifestyle for maintaining healthy levels of cholesterol and preventing other comorbidities. Will continue to monitor. # Iron deficiency: Continue ferrous sulfate 65 mg 1 tablet 3 times weekly. Advised to take with source of vitamin C for greater absorption. All questions have been answered to patient's satisfaction. Patient verbalized understanding of diagnosis and treatments explained. Advised to call sooner prior to next visit it any questions/concerns arise. Case discussed with collaborating physician Reginaldo Nolasco who reviewed the assessment and plan. Chart, medications, labs, vital signs reviewed. Dictation was accomplished with the use of [employer] voice recognition software, which is prone to medical misidentifications and grammatical errors. This are unintentional and the practitioner does try to identify and correct these, but some could still be present. Please do not hesitate to contact practitioner for clarification. 04/18/2025 Acquired hypothyroidism (ICD-10 - E03.9) Patient is here for weight management follow-up. We focused on significance of healthy lifestyle changes. We talked about need to track steps with goal between 6000-10,000 steps daily, focus on portion control, read food labels, get adequate sleep between 7 to 8 hours, get adequate rest to the body, meditate, frequent nutritious meals including vegetables and healthy choices of lean meats, fish, and elimination of refined carbohydrates. We also talked about mindfulness and mindful eating. Particular focus was on continuing portion control, mindful eating, and physical activity on maintenance therapy. Total time of 30 minutes spent with patient with greater than 50% spent on counseling and coordinating care. 04/18/2024: Weight 202.3 pounds, BMI 30.76 05/16/2024: 190.1 pounds, BMI 28.9 06/27/2024: Weight 182.9 pounds, BMI 27.81 08/01/2024: Weight 180.1 pounds, BMI 27.38 09/28/2025: Weight 175 pounds, BMI 26.61 12/05/2024: Weight 177 pounds, BMI 26.91. Seca scan completed today and interpreted with the patient. Patient currently on Wegovy 1 mg once weekly for maintenance dosing. Reports good tolerance of medication without adverse effects. Reviewed goals of diet and exercise, patient is active at [employer]. Reviewed goals of hydration with 60 to 80 ounces daily. Plan at this time to maintain current dose of Wegovy. Discussed proper use of the medication and potential side effect profile including but not limited to nausea, constipation, abdominal pain, and heartburn. Given that now on maintenance phase he will follow-up in 3 months for further management. 03/05/2025: Weight 181 pounds, BMI 27.52. Seca scan completed and discussed with the patient. Patient has had a slight fluctuation of his weight from his previous visit by about 4 pounds. Has had a slight increase of fat mass by about 1 pound. Visceral adiposity is still stable at 1.5 and within normal limits. Reports several weeks of adverse symptoms including increased belching, increased gas, and diarrhea. Has been supplementing with probiotics and prebiotic's. Discussed potential benefit of transitioning to Zepbound for continued weight control and better tolerance. Advised that medication will require prior authorization. If not covered patient will otherwise continue Wegovy weekly or biweekly. Follow-up in 6 weeks. 04/18/2025: Weight 180 pounds, BMI 27.37. Seca scan completed and discussed with the patient. Weight overall is stable since last visit 6 weeks ago. Has maintained stable fat mass at 45 pounds. Fat mass index today is 6.7, slightly increased. Maintaining 63 pounds of muscle mass. Visceral adiposity this morning is 2.8 L. Currently is on Zepbound 2.5 mg weekly. No significant side effects, transition from Wegovy 1 mg weekly. Discussed goals of diet and exercise. Plan is to increase dose to 5 mg weekly and follow-up in approximately 3 months. # Hypertension: Blood pressure stable at 106/80. Continue losartan 50 mg once daily. # Hypothyroidism: Patient follows with endocrinology, reports stable TSH. Continue levothyroxine 150 mcg 1 tablet once daily in the morning before food and other medications. # Hyperlipidemia: Continue rosuvastatin 40 mg once daily. Discussed importance of diet and lifestyle for maintaining healthy levels of cholesterol and preventing other comorbidities. Will continue to monitor. # Iron deficiency: Continue ferrous sulfate 65 mg 1 tablet 3 times weekly. Advised to take with source of vitamin C for greater absorption. All questions have been answered to patient's satisfaction. Patient verbalized understanding of diagnosis and treatments explained. Advised to call sooner prior to next visit it any questions/concerns arise. Case discussed with collaborating physician Reginaldo Nolasco who reviewed the assessment and plan. Chart, medications, labs, vital signs reviewed. Dictation was accomplished with the use of [employer] voice recognition software, which is prone to medical misidentifications and grammatical errors. This are unintentional and the practitioner does try to identify and correct these, but some could still be present. Please do not hesitate to contact practitioner for clarification. 03/05/2025 Acquired hypothyroidism (ICD-10 - E03.9) Patient is here for weight management follow-up. We focused on significance of healthy lifestyle changes. We talked about need to track steps with goal between 6000-10,000 steps daily, focus on portion control, read food labels, get adequate sleep between 7 to 8 hours, get adequate rest to the body, meditate, frequent nutritious meals including vegetables and healthy choices of lean meats, fish, and elimination of refined carbohydrates. We also talked about mindfulness and mindful eating. Particular focus was on continuing portion control, mindful eating, and physical activity on maintenance therapy. Total time of 30 minutes spent with patient with greater than 50% spent on counseling and coordinating care. 04/18/2024: Weight 202.3 pounds, BMI 30.76 05/16/2024: 190.1 pounds, BMI 28.9 06/27/2024: Weight 182.9 pounds, BMI 27.81 08/01/2024: Weight 180.1 pounds, BMI 27.38 09/28/2025: Weight 175 pounds, BMI 26.61 12/05/2024: Weight 177 pounds, BMI 26.91. Seca scan completed today and interpreted with the patient. Patient currently on Wegovy 1 mg once weekly for maintenance dosing. Reports good tolerance of medication without adverse effects. Reviewed goals of diet and exercise, patient is active at [employer]. Reviewed goals of hydration with 60 to 80 ounces daily. Plan at this time to maintain current dose of Wegovy. Discussed proper use of the medication and potential side effect profile including but not limited to nausea, constipation, abdominal pain, and heartburn. Given that now on maintenance phase he will follow-up in 3 months for further management. 03/05/2025: Weight 181 pounds, BMI 27.52. Seca scan completed and discussed with the patient. Patient has had a slight fluctuation of his weight from his previous visit by about 4 pounds. Has had a slight increase of fat mass by about 1 pound. Visceral adiposity is still stable at 1.5 and within normal limits. Reports several weeks of adverse symptoms including increased belching, increased gas, and diarrhea. Has been supplementing with probiotics and prebiotic's. Discussed potential benefit of transitioning to Zepbound for continued weight control and better tolerance. Advised that medication will require prior authorization. If not covered patient will otherwise continue Wegovy weekly or biweekly. Follow-up in 6 weeks. # Hypertension: Blood pressure stable at 110/70. Continue losartan 50 mg once daily. # Hypothyroidism: Patient follows with endocrinology, reports stable TSH. Continue levothyroxine 150 mcg 1 tablet once daily in the morning before food and other medications. # Hyperlipidemia: Continue rosuvastatin 40 mg once daily. Discussed importance of diet and lifestyle for maintaining healthy levels of cholesterol and preventing other comorbidities. Will continue to monitor. # Iron deficiency: Continue ferrous sulfate 65 mg 1 tablet 3 times weekly. Advised to take with source of vitamin C for greater absorption. All questions have been answered to patient's satisfaction. Patient verbalized understanding of diagnosis and treatments explained. Advised to call sooner prior to next visit it any questions/concerns arise. Case discussed with collaborating physician Reginaldo Nolasco who reviewed the assessment and plan. Chart, medications, labs, vital signs reviewed. Dictation was accomplished with the use of [employer] voice recognition software, which is prone to medical misidentifications and grammatical errors. This are unintentional and the practitioner does try to identify and correct these, but some could still be present. Please do not hesitate to contact practitioner for clarification. 12/05/2024 Acquired hypothyroidism (ICD-10 - E03.9) Patient is here for weight management follow-up. We focused on significance of healthy lifestyle changes. We talked about need to track steps with goal between 6000-10,000 steps daily, focus on portion control, read food labels, get adequate sleep between 7 to 8 hours, get adequate rest to the body, meditate, frequent nutritious meals including vegetables and healthy choices of lean meats, fish, and elimination of refined carbohydrates. We also talked about mindfulness and mindful eating. Particular focus was on continuing portion control, mindful eating, and physical activity on maintenance therapy. Total time of 30 minutes spent with patient with greater than 50% spent on counseling and coordinating care. 04/18/2024: Weight 202.3 pounds, BMI 30.76 05/16/2024: 190.1 pounds, BMI 28.9 06/27/2024: Weight 182.9 pounds, BMI 27.81 08/01/2024: Weight 180.1 pounds, BMI 27.38 09/28/2025: Weight 175 pounds, BMI 26.61 12/05/2024: Weight 177 pounds, BMI 26.91. Seca scan completed today and interpreted with the patient. Patient currently on Wegovy 1 mg once weekly for maintenance dosing. Reports good tolerance of medication without adverse effects. Reviewed goals of diet and exercise, patient is active at [employer]. Reviewed goals of hydration with 60 to 80 ounces daily. Plan at this time to maintain current dose of Wegovy. Discussed proper use of the medication and potential side effect profile including but not limited to nausea, constipation, abdominal pain, and heartburn. Given that now on maintenance phase he will follow-up in 3 months for further management. # Hypertension: Blood pressure stable at 112/78. Continue losartan 50 mg once daily. # Hypothyroidism: Patient follows with endocrinology, reports stable TSH. Continue levothyroxine 150 mcg 1 tablet once daily in the morning before food and other medications. # Hyperlipidemia: Continue rosuvastatin 40 mg once daily. Discussed importance of diet and lifestyle for maintaining healthy levels of cholesterol and preventing other comorbidities. Will continue to monitor. # Iron deficiency: Continue ferrous sulfate 65 mg 1 tablet 3 times weekly. Advised to take with source of vitamin C for greater absorption. All questions have been answered to patient's satisfaction. Patient verbalized understanding of diagnosis and treatments explained. Advised to call sooner prior to next visit it any questions/concerns arise. Case discussed with collaborating physician Reginaldo Nolasco who reviewed the assessment and plan. Chart, medications, labs, vital signs reviewed. Dictation was accomplished with the use of [employer] voice recognition software, which is prone to medical misidentifications and grammatical errors. This are unintentional and the practitioner does try to identify and correct these, but some could still be present. Please do not hesitate to contact practitioner for clarification. 12/05/2024 Mixed hyperlipidemia (ICD-10 - E78.2) Patient is here for weight management follow-up. We focused on significance of healthy lifestyle changes. We talked about need to track steps with goal between 6000-10,000 steps daily, focus on portion control, read food labels, get adequate sleep between 7 to 8 hours, get adequate rest to the body, meditate, frequent nutritious meals including vegetables and healthy choices of lean meats, fish, and elimination of refined carbohydrates. We also talked about mindfulness and mindful eating. Particular focus was on continuing portion control, mindful eating, and physical activity on maintenance therapy. Total time of 30 minutes spent with patient with greater than 50% spent on counseling and coordinating care. 04/18/2024: Weight 202.3 pounds, BMI 30.76 05/16/2024: 190.1 pounds, BMI 28.9 06/27/2024: Weight 182.9 pounds, BMI 27.81 08/01/2024: Weight 180.1 pounds, BMI 27.38 09/28/2025: Weight 175 pounds, BMI 26.61 12/05/2024: Weight 177 pounds, BMI 26.91. Seca scan completed today and interpreted with the patient. Patient currently on Wegovy 1 mg once weekly for maintenance dosing. Reports good tolerance of medication without adverse effects. Reviewed goals of diet and exercise, patient is active at [employer]. Reviewed goals of hydration with 60 to 80 ounces daily. Plan at this time to maintain current dose of Wegovy. Discussed proper use of the medication and potential side effect profile including but not limited to nausea, constipation, abdominal pain, and heartburn. Given that now on maintenance phase he will follow-up in 3 months for further management. # Hypertension: Blood pressure stable at 112/78. Continue losartan 50 mg once daily. # Hypothyroidism: Patient follows with endocrinology, reports stable TSH. Continue levothyroxine 150 mcg 1 tablet once daily in the morning before food and other medications. # Hyperlipidemia: Continue rosuvastatin 40 mg once daily. Discussed importance of diet and lifestyle for maintaining healthy levels of cholesterol and preventing other comorbidities. Will continue to monitor. # Iron deficiency: Continue ferrous sulfate 65 mg 1 tablet 3 times weekly. Advised to take with source of vitamin C for greater absorption. All questions have been answered to patient's satisfaction. Patient verbalized understanding of diagnosis and treatments explained. Advised to call sooner prior to next visit it any questions/concerns arise. Case discussed with collaborating physician Reginaldo Nolasco who reviewed the assessment and plan. Chart, medications, labs, vital signs reviewed. Dictation was accomplished with the use of [employer] voice recognition software, which is prone to medical misidentifications and grammatical errors. This are unintentional and the practitioner does try to identify and correct these, but some could still be present. Please do not hesitate to contact practitioner for clarification. 03/05/2025 Mixed hyperlipidemia (ICD-10 - E78.2) Patient is here for weight management follow-up. We focused on significance of healthy lifestyle changes. We talked about need to track steps with goal between 6000-10,000 steps daily, focus on portion control, read food labels, get adequate sleep between 7 to 8 hours, get adequate rest to the body, meditate, frequent nutritious meals including vegetables and healthy choices of lean meats, fish, and elimination of refined carbohydrates. We also talked about mindfulness and mindful eating. Particular focus was on continuing portion control, mindful eating, and physical activity on maintenance therapy. Total time of 30 minutes spent with patient with greater than 50% spent on counseling and coordinating care. 04/18/2024: Weight 202.3 pounds, BMI 30.76 05/16/2024: 190.1 pounds, BMI 28.9 06/27/2024: Weight 182.9 pounds, BMI 27.81 08/01/2024: Weight 180.1 pounds, BMI 27.38 09/28/2025: Weight 175 pounds, BMI 26.61 12/05/2024: Weight 177 pounds, BMI 26.91. Seca scan completed today and interpreted with the patient. Patient currently on Wegovy 1 mg once weekly for maintenance dosing. Reports good tolerance of medication without adverse effects. Reviewed goals of diet and exercise, patient is active at [employer]. Reviewed goals of hydration with 60 to 80 ounces daily. Plan at this time to maintain current dose of Wegovy. Discussed proper use of the medication and potential side effect profile including but not limited to nausea, constipation, abdominal pain, and heartburn. Given that now on maintenance phase he will follow-up in 3 months for further management. 03/05/2025: Weight 181 pounds, BMI 27.52. Seca scan completed and discussed with the patient. Patient has had a slight fluctuation of his weight from his previous visit by about 4 pounds. Has had a slight increase of fat mass by about 1 pound. Visceral adiposity is still stable at 1.5 and within normal limits. Reports several weeks of adverse symptoms including increased belching, increased gas, and diarrhea. Has been supplementing with probiotics and prebiotic's. Discussed potential benefit of transitioning to Zepbound for continued weight control and better tolerance. Advised that medication will require prior authorization. If not covered patient will otherwise continue Wegovy weekly or biweekly. Follow-up in 6 weeks. # Hypertension: Blood pressure stable at 110/70. Continue losartan 50 mg once daily. # Hypothyroidism: Patient follows with endocrinology, reports stable TSH. Continue levothyroxine 150 mcg 1 tablet once daily in the morning before food and other medications. # Hyperlipidemia: Continue rosuvastatin 40 mg once daily. Discussed importance of diet and lifestyle for maintaining healthy levels of cholesterol and preventing other comorbidities. Will continue to monitor. # Iron deficiency: Continue ferrous sulfate 65 mg 1 tablet 3 times weekly. Advised to take with source of vitamin C for greater absorption. All questions have been answered to patient's satisfaction. Patient verbalized understanding of diagnosis and treatments explained. Advised to call sooner prior to next visit it any questions/concerns arise. Case discussed with collaborating physician Reginaldo Nolasco who reviewed the assessment and plan. Chart, medications, labs, vital signs reviewed. Dictation was accomplished with the use of [employer] voice recognition software, which is prone to medical misidentifications and grammatical errors. This are unintentional and the practitioner does try to identify and correct these, but some could still be present. Please do not hesitate to contact practitioner for clarification. 04/18/2025 Mixed hyperlipidemia (ICD-10 - E78.2) Patient is here for weight management follow-up. We focused on significance of healthy lifestyle changes. We talked about need to track steps with goal between 6000-10,000 steps daily, focus on portion control, read food labels, get adequate sleep between 7 to 8 hours, get adequate rest to the body, meditate, frequent nutritious meals including vegetables and healthy choices of lean meats, fish, and elimination of refined carbohydrates. We also talked about mindfulness and mindful eating. Particular focus was on continuing portion control, mindful eating, and physical activity on maintenance therapy. Total time of 30 minutes spent with patient with greater than 50% spent on counseling and coordinating care. 04/18/2024: Weight 202.3 pounds, BMI 30.76 05/16/2024: 190.1 pounds, BMI 28.9 06/27/2024: Weight 182.9 pounds, BMI 27.81 08/01/2024: Weight 180.1 pounds, BMI 27.38 09/28/2025: Weight 175 pounds, BMI 26.61 12/05/2024: Weight 177 pounds, BMI 26.91. Seca scan completed today and interpreted with the patient. Patient currently on Wegovy 1 mg once weekly for maintenance dosing. Reports good tolerance of medication without adverse effects. Reviewed goals of diet and exercise, patient is active at [employer]. Reviewed goals of hydration with 60 to 80 ounces daily. Plan at this time to maintain current dose of Wegovy. Discussed proper use of the medication and potential side effect profile including but not limited to nausea, constipation, abdominal pain, and heartburn. Given that now on maintenance phase he will follow-up in 3 months for further management. 03/05/2025: Weight 181 pounds, BMI 27.52. Seca scan completed and discussed with the patient. Patient has had a slight fluctuation of his weight from his previous visit by about 4 pounds. Has had a slight increase of fat mass by about 1 pound. Visceral adiposity is still stable at 1.5 and within normal limits. Reports several weeks of adverse symptoms including increased belching, increased gas, and diarrhea. Has been supplementing with probiotics and prebiotic's. Discussed potential benefit of transitioning to Zepbound for continued weight control and better tolerance. Advised that medication will require prior authorization. If not covered patient will otherwise continue Wegovy weekly or biweekly. Follow-up in 6 weeks. 04/18/2025: Weight 180 pounds, BMI 27.37. Seca scan completed and discussed with the patient. Weight overall is stable since last visit 6 weeks ago. Has maintained stable fat mass at 45 pounds. Fat mass index today is 6.7, slightly increased. Maintaining 63 pounds of muscle mass. Visceral adiposity this morning is 2.8 L. Currently is on Zepbound 2.5 mg weekly. No significant side effects, transition from Wegovy 1 mg weekly. Discussed goals of diet and exercise. Plan is to increase dose to 5 mg weekly and follow-up in approximately 3 months. # Hypertension: Blood pressure stable at 106/80. Continue losartan 50 mg once daily. # Hypothyroidism: Patient follows with endocrinology, reports stable TSH. Continue levothyroxine 150 mcg 1 tablet once daily in the morning before food and other medications. # Hyperlipidemia: Continue rosuvastatin 40 mg once daily. Discussed importance of diet and lifestyle for maintaining healthy levels of cholesterol and preventing other comorbidities. Will continue to monitor. # Iron deficiency: Continue ferrous sulfate 65 mg 1 tablet 3 times weekly. Advised to take with source of vitamin C for greater absorption. All questions have been answered to patient's satisfaction. Patient verbalized understanding of diagnosis and treatments explained. Advised to call sooner prior to next visit it any questions/concerns arise. Case discussed with collaborating physician Reginaldo Nolasco who reviewed the assessment and plan. Chart, medications, labs, vital signs reviewed. Dictation was accomplished with the use of [employer] voice recognition software, which is prone to medical misidentifications and grammatical errors. This are unintentional and the practitioner does try to identify and correct these, but some could still be present. Please do not hesitate to contact practitioner for clarification. Plan Of Treatment Next Appt Details Provider Name:ALEX MOURA , 07/26/2025 09:30:00 AM, [address] [facility], [address], [place], [address], Insurance Providers Payer Name Payer Address Payer Phone Subscriber Number Group Number Insured Name Patient Relationship to Insured Coverage Start Date Coverage End Date [facility] [address] [place] [address] [phone] [id number] KATELYNN DAVIS Self - patient is the insured 1 Medical (General) History Medical History History ICD Code Hypertension Thyroid disease Weight change Surgical History Surgery Date(Month/Year) Appendectomy [place] teeth removal
--- OUTSIDE RECORDS SUMMARY | 2025-05-02 08:19 | XMS_ITS | Patient Health Record ---
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 Name Role Phone Clara PACHECO, Samantha Primary Care Provider Braulio Reyes Jr Unavailable Allergies No Known Allergies Reason For Referral [...] Status W/U Status Risk Notes Problem Crohn (4187830) Crohn's disease of large intestine with unspecified complications (K50.119) Active confirmed Problem [id number] Crohn's disease of large intestine with complication (K50.119) Active confirmed Plan Of Treatment Pending Test Test Name Order Date TSH 06/18/2011 CBC, Platelet; No Differential 1 ESR 06/18/2011 Future Test Test Name Order Date COLONOSCOPY 11/12/2021 Insurance Providers Payer Name Payer Address Payer Phone Subscriber Number Group Number Insured Name Patient Relationship to Insured Coverage Start Date Coverage End Date [facility] [address] [place] [address] [id number] KATELYNN DAVIS Self - patient is the [...]
== END 2025-05-02 08:41 | disposition home or self-care (01) ==
PROVIDERS: PCP Internal Medicine; Visit Provider Physician Assistant
DX: R21 Rash and other nonspecific skin eruption (principal)

== ENCOUNTER 2025-06-06 13:23 | Outpatient (AMB) | payer OTHER, SELFPAY ==
[2025-06-06 13:44] VITALS: BP 110/80; PULSE 90; RESP 16; TEMP 36.8; O2SAT 97; BMI 25.5
--- NOTE | 2025-06-06 13:44 | A.OFFPC_ITS ---
Vital Signs 06/06/25 13:44 Height 5 ft 10 in Weight 178 lb BMI 25.5 BP 110/80 Blood Pressure Location Rt brachial Position Sitting Respiration 16 Pulse 90 Pulse Source Pulse Oximeter Temp 98.3 F Temp Source Oral Pulse Oximetry (%) 97 Oxygen Delivery Method Room Air Intake Visit Reasons: Annual PE Intake Note: Pt is here today for his PE: last colonoscopy 11/28/21 Allergies environmental allergies Adverse Reaction (Verified 06/06/25 14:11) Itchy Eyes Medication List - Last Reconciled 06/06/25 by Samantha Elizabeth MD cholecalciferol (vitamin D3) 50 mcg PO DAILY losartan 50 mg PO DAILY pyridoxine (vitamin B6) 50 mg PO DAILY 90 days rosuvastatin 40 mg PO DAILY Synthroid (levothyroxine) 150 mcg PO DAILY NS testosterone 40mg/.4ml intramuscular twice a week tirzepatide (weight loss) (Zepbound) 5 mg subcut QWEEK Tobacco use date assessed: 06/06/25 Dental Screening Dental Screen Date: 06/06/25 Did you have a dental visit in the last 12 months?: Yes Did you have a dental problem in the last 6 months where you did not have access to dental care?: No Was dental information given to patient?: Patient has dentist HPI Annual PE HPI Details - The patient is a 50-year-old male pres enting for his physical exam and a follow-up on weight management and hormone therapy. - Obesity: The patient was switched from Wegovy to Zepbound due to gastrointestinal upset. He has lost 7 pounds since May 02, with a current BMI of 25. The goal is to reach a BMI of 24. - Hypothyroidism: The patient reports im proved TSH levels with current treatment. Thyroid function tests were last performed in March, showing stable free T4 levels. - Testosterone deficiency: The patient w as started on testosterone therapy due to low levels, which were contributing to mood disturbances. He is currently on 40 mg IM injections twice a week and reports feeling better after three weeks of treatment. Currently followed by Urology - Coronary artery calcification: Detecte d on a previous CT scan, the patient is on rosuvastatin to prevent progression. Cholesterol levels are well-controlled, with LDL at 64 mg/dL. - Kidney stones: The patient has a histo ry of kidney stones and is on pyridoxine for prevention. He passed a stone recently and is following dietary recommendations including lemon water intake. -up-to-date with his screening colonosco py done by Dr. 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 Other and unspecified hyperlipidemia Essential hypertension Coronary artery calcification seen on CAT scan Pseudofolliculitis barbae GERD (gastroesophageal reflux disease) Crohn's disease Dyslipidemia Surgical History Hx of LASIK H/O wisdom tooth extraction Hx of appendectomy Family History Father Myocardial infarction CVD (cardiovascular disease) Mother CVD (cardiovascular disease) Brother Hypothyroidism Substance use disorder Brother Substance use disorder Brother Substance use disorder Sister Substance use disorder Social History Housing: House Alcohol intake: current Alcohol intake frequency: holidays/special occasions only Patient Tobacco Use Status: Never used Tobacco e-Cigarette/Vaping Use: Never Used service: No Current occupational status: employed Sexual orientation: Lesbian/Jeter/Homosexual Cognitive needs: No Hearing needs: No Vision needs: Yes Questionnaire Thrive Questionnaire Date Thrive assessed: 04/19/25 I am a: Patient What is your living situation today?: I have a steady place to live Within the past 12 months, did the food you bought not last and you didn't have the money to get more?: Never true Within the past 12 months, did you worry whether your food would run out before you got money to buy more?: Never true Do you have trouble paying for medicines?: No Do you have trouble getting transportation to medical appointments?: No Do you have trouble paying your heating and electricity bill?: No Do you have trouble taking care of your child, family member or friend?: No Do you have trouble with day-to-day activities such as bathing, preparing meals, shopping, managing finances, etc.?: No Are you currently unemployed and looking for a job?: No Are you interested in more education?: No Please select the resources that you would like help with: None Currently or been in a relationship where the following occur: No concerns re ported THRIVE Score: 0 LANE-[address] L[address]-7 Date L[address] - 7 assessed: 05/25/24 Source: Developed by Drs. Manuel Rodriguez, Cortney Carl, Davidson Brody and colleagues, with an educational jontahon from [employer]. Review of Systems Const Denies body aches, Denies chills and Denies fever(s) Eyes Details: has appt with [facility] Reports blurry vision (With reading) ENT Reports no additional complaints Card Denies chest pain, Denies syncope, Denies irregular heart rhythm and Denies dyspnea Resp Denies cough and Denies dyspnea GI Denies abdominal pain and Denies heartburn Reports no additional complaints Musc Reports no additional complaints Skin/Breast Denies rash and Denies unusual bruising Neuro Denies syncope Psych Reports no additional complaints Endo Reports no additional complaints Ricky/Lymph Denies easy bleeding and Denies easy bruising Aller/Immun Reports no additional complaints Physical exam (Primary Care) Vital Signs: Last Vital Signs Temp 98.3 F 06/06/25 13:44 Pulse 90 06/06/25 13:44 Resp 16 06/06/25 13:44 BP 110/80 06/06/25 13:44 Pulse Ox 97 06/06/25 13:44 Oxygen Delivery Method Room Air 06/06/25 13:44 BMI result Body Mass Index 25.5 Tobacco/Smoking Status: Tobacco use Status Tobacco use date assessed 06/06/25 06/06/25 13:46 Patient Tobacco Use Status Never used Tobacco 06/06/25 13:46 e-Cigarette/Vaping Use Never Used 06/06/25 13:46 Thrive Assessment: Date of Thrive Assessment Date Thrive assessed 04/19/25 06/06/25 13:46 Currently or been in a relationship where the following occur: No concerns reported Const General: no acute distress and alert Orientation/consciousness: patient oriented x3 HENMT Ears: external ears normal General nose exam: Normal external nose present Face and sinus: Yes face symmetric Eyes General: appearance normal, both eyes and all related structures Neck Neck: Yes full ROM and Yes no lymphadenopathy Thyroid: Thyroid normal (Nonpalpable) Resp Effort & Inspection: normal respiratory effort and able to speak in complete sentences Auscultation: clear to auscultation bilaterally Cardio Rate: regular rate Rhythm: regular rhythm Heart sounds: S1 normal heart sound present and S2 normal heart sound present GI Inspection: Yes normal to inspection Palpation (GI): Soft to palpation Auscultation: normal bowel sounds General: Yes no CVA tenderness Male General Exam: Yes normal external exam Back/Spine/Pelvis Back: no CVA tenderness Skin Other: Multiple tattoos all over his body, has a skin tag on left preauricular area Neuro General: patient oriented x3, gait normal, tone normal, moves all extremities, no focal motor deficits and CN's II-XI intact bilaterally Gait exam (Neuro): Normal gait present Extrem General: Yes normal to inspection, Yes full ROM, Yes no pedal edema and Yes normal gait Psych Appearance: grossly normal and well kempt Mental Status: mental status grossly normal Speech and movement: Normal speech and movement present Affect: normal affect Results Reviewed Results Reviewed: Name: Toney Andino Age/Sex: 50/M : 1975 Unit#: [id number] Attend Dr: Samantha Elizabeth MD Re04/13/25 Status: DEP REF Location: [facility] Disch: SPEC : [id number] ANNMARIE: 04/13/25 STATUS: COMP REQ : [id number] RECD: 04/13/25-[address]: Samantha Elizabeth MD COMP: 04/13/25 ENTERED: 04/13/[address]: ORDERED: CBC Auto Diff Test Result Flag Reference WBC 6.5 4.8-10.8 X10*3/uL RBC 4.69 4.60-5.80 X10*6/uL HGB 14.2 14.0-18.0 g/dl HCT 41.5 L 42.0-52.0 % MCV 88.5 80.0-98.0 fL MCH 30.3 27.0-33.0 pg MCHC 34.2 31.0-36.0 g/dl RDW 13.1 11.0-16.0 % PLT 132 L 160-400 X10*3/uL MPV 12.8 H 9.4-12.4 fL Neut Pct Auto 57.5 45-73 % ImGran Pct Auto 0.5 H 0.0-0.4 % Lymp Pct Auto 30.9 20-40 % Wright Pct Auto 8.9 2-11 % Eos Pct Auto 1.7 0-4 % Baso Pct Auto 0.5 0-2 % NRBC Pct Auto 0.0 0.0-0.2 /100WBC ANC Neut Abs # 3.8 2.0-8.3 x10*3/uL ImGran Abs Auto 0.03 0.00-0.03 X10*3/uL Lymph Abs Auto 2.0 1.2-4.9 X10*3/uL Wright Abs Auto 0.6 0.1-1.2 X10*3/uL Eos Abs Auto 0.1 0.0-0.4 X10*3/uL Baso Abs Auto 0.0 0.0-0.2 X10*3/uL NRBC Abs Auto 0.000 0.0-0.012 X10*3/uL Name: Toney Andino Age/Sex: 50/M : 1975 Unit#: [id number] Attend Dr: Samantha Elizabeth MD Re04/13/25 Status: DEP REF Location: [facility] Disch: SPEC : [id number] ANNMARIE: 04/13/25-1100 STATUS: COMP REQ : [id number] RECD: 04/13/25-[address]: Samantha Elizabeth MD COMP: 04/13/25-1347 ENTERED: 04/13/25-[address]: ORDERED: Met Prof Fast, IRON PROF, AST, ALT, Lipid Panel, Vitamin D 25-OH, Free T Test Result Flag Reference Sodium 138 135-145 mmol/L Potassium 3.7 3.3-5.1 mmol/L CL 107 96-108 mmol/L CO2 25 22-29 mmol/L Gap 10 L 12-20 BUN 14 9-16 mg/dL Creat 1.07 0.5-1.4 mg/dL eGFR > 60 Chronic Kidney Disease: Estimated GFR < 60 mL/min/1.73m2 Severe Kidney Disease: Estimated GFR < 15 mL/min/1.73m2 FBS 93 60-99 mg/dL CA 8.9 # 8.4-10.2 mg/dL Iron 68 45-160 mcg/dL TIBC 265 228-428 mcg/dL Saturation 26 15-50 % UIBC 197 ug/dL AST (GOT) 34 5-37 U/L ALT (GPT) 32 0-40 U/L Triglyceride 80 <150 mg/dL Desirable Triglyceride: less than 150 mg/dL Borderline High Triglyceride 150-199 mg/dL High Triglyceride: 200-499 mg/dL Very High Triglyceride: greater than or equal to 5OO mg/dL Cholesterol 127 <200 mg/dL Desirable Cholesterol: less than 200 mg/dL Borderline High Cholesterol: 200-239 mg/dL High Cholesterol: greater than 239 mg/dL LDL Calculated 64 <100 mg/dL Desirable LDL: less than 100 mg/dL Near Optimal/Above Optimal LDL: 110-129 mg/dL Borderline High LDL: 130-159 mg/dL High LDL: 160-189 mg/dL Very High LDL: greater than or equal to 190 mg/dL HDL 47 >40 mg/dL Desirable HDL: greater than 40 mg/dL Note: This HDL assay may give artificially low results in patients with liver disease. Vitamin D 25-OH 44.0 >30 ng/mL Health Based Reference Values* < 20 ng/mL Deficient 20-30 ng/mL Insufficient > 30 ng/mL Sufficient *Allan RODRIGUEZ. N Engl J Med. 2007;357:266-280 There is no well-established upper level of normal vitamin D levels. Some laboratories use 50 ng/mL as an upper limit of normal. However, toxicity is patient-dependent and may occur at any level. Careful correlation with the patient's presentation is necessary and, if there is concern for vitamin D toxicity, treatment should be considered irrespective of the serum level. Care must be taken in interpreting Vitamin D results from different laboratories and methodologies. Published data demonstrated that results from patients undergoing hemodialysis may show a negative bias when tested with various automated 25-OH vitamin D assays when compared to LC-MS/MS. When testing samples from patients whose predominant form of Vitamin D is Vitamin D2, such as patients receiving Vitamin D2 supplementation, results that are subtherapeutic should be confirmed with another method such as LC-MS/MS. Free T4 1.19 0.71-1.85 ng/dL TSH 3rd Gen. 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 E03.8; E06.3 Chronic ITP (idiopathic thrombocytopenia) D69.3 Vitamin D deficient osteomalacia M83.9 History of nephrolithiasis Z87.442 Assessment & Plan Assessment & Plan (1) Dyslipidemia: Code(s): E78.5 - Hyperlipidemia, unspecified Category: Medical (2) Coronary artery calcification seen on CAT scan: Code(s): I25.10 - Atherosclerotic heart disease of [place] coronary artery without angina pectoris Category: Medical (3) Essential hypertension: Code(s): I10 - Essential (primary) hypertension Category: Medical (4) 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 Kristy Meadows Code(s): D69.3 - Immune thrombocytopenic purpura Category: Medical (6) Vitamin D deficient osteomalacia: Code(s): M83.9 - Adult osteomalacia, unspecified Category: Medical (7) History of nephrolithiasis: Code(s): Z87.442 - Personal history of urinary calculi Category: Medical Plan continue with Zepbound for weight management, with a goal to reach a BMI of 24. Regular monitoring of thyroid and lipid levels is planned for September to ensure continued stability of these parameters. Testosterone therapy will be maintained at the current dose, with ongoing monitoring of hormone levels to assess efficacy and adjust as needed. The patient is advised to continue pyridoxine for kidney stone prevention and to follow dietary recommendations, including lemon water intake, to reduce recurrence risk. Regular follow-up with the host coordinator is recommended to assess the progression of coronary artery calcification, with continued use of rosuvastatin to manage cholesterol levels. The patient is encouraged to maintain regular physical activity and adhere to dietary recommendations to support overall health and weight management goals. Patient was informed and verbally consented to the use of an ambient scribe for clinic note documentation during this visit. Orders: Orders Complete Blood Count Auto Diff 09/17/25 I10 - Essential (primary) hypertension, I25.10 - Atherosclerotic heart disease of [place] coronary artery without angina pectoris, E78.5 - Hyperlipidemia, unspecified, D69.3 - Immune thrombocytopenic purpura, E03.8 - Other specified hypothyroidism, E06.3 - Autoimmune thyroiditis, M83.9 - Adult osteomalacia, unspecified, Z87.442 - Personal history of urinary calculi Lipid Panel 09/17/25 I10 - Essential (primary) hypertension, I25.10 - Atherosclerotic heart disease of [place] coronary artery without angina pectoris, E78.5 - Hyperlipidemia, unspecified, D69.3 - Immune thrombocytopenic purpura, E03.8 - Other specified hypothyroidism, E06.3 - Autoimmune thyroiditis, M83.9 - Adult osteomalacia, unspecified, Z87.442 - Personal history of urinary calculi Aspartate Amino Transferase 09/17/25 I10 - Essential (primary) hypertension, I25.10 - Atherosclerotic heart disease of [place] coronary artery without angina pectoris, E78.5 - Hyperlipidemia, unspecified, D69.3 - Immune thrombocytopenic purpura, E03.8 - Other specified hypothyroidism, E06.3 - Autoimmune thyroiditis, M83.9 - Adult osteomalacia, unspecified, Z87.442 - Personal history of urinary calculi Alanine Aminotransferase 09/17/25 I10 - Essential (primary) hypertension, I25.10 - Atherosclerotic heart disease of [place] coronary artery without angina pectoris, E78.5 - Hyperlipidemia, unspecified, D69.3 - Immune thrombocytopenic purpura, E03.8 - Other specified hypothyroidism, E06.3 - Autoimmune thyroiditis, M83.9 - Adult osteomalacia, unspecified, Z87.442 - Personal history of urinary calculi Triiodothyronine T3 Free 09/17/25 I10 - Essential (primary) hypertension, I25.10 - Atherosclerotic heart disease of [place] coronary artery without angina pectoris, E78.5 - Hyperlipidemia, unspecified, D69.3 - Immune thrombocytopenic purpura, E03.8 - Other specified hypothyroidism, E06.3 - Autoimmune thyroiditis, M83.9 - Adult osteomalacia, unspecified, Z87.442 - Personal history of urinary calculi Free T4 (Free Thyroxine) 09/17/25 I10 - Essential (primary) hypertension, I25.10 - Atherosclerotic heart disease of [place] coronary artery without angina pectoris, E78.5 - Hyperlipidemia, unspecified, D69.3 - Immune thrombocytopenic purpura, E03.8 - Other specified hypothyroidism, E06.3 - Autoimmune thyroiditis, M83.9 - Adult osteomalacia, unspecified, Z87.442 - Personal history of urinary calculi Vitamin D 25-OH Total 09/17/25 I10 - Essential (primary) hypertension, I25.10 - Atherosclerotic heart disease of [place] coronary artery without angina pectoris, E78.5 - Hyperlipidemia, unspecified, D69.3 - Immune thrombocytopenic purpura, E03.8 - Other specified hypothyroidism, E06.3 - Autoimmune thyroiditis, M83.9 - Adult osteomalacia, unspecified, Z87.442 - Personal history of urinary calculi Thyroid Stimulating Hormone 09/17/25 I10 - Essential (primary) hypertension, I25.10 - Atherosclerotic heart disease of [place] coronary artery without angina pectoris, E78.5 - Hyperlipidemia, unspecified, D69.3 - Immune thrombocytopenic purpura, E03.8 - Other specified hypothyroidism, E06.3 - Autoimmune thyroiditis, M83.9 - Adult osteomalacia, unspecified, Z87.442 - Personal history of urinary calculi
--- OUTSIDE RECORDS SUMMARY | 2025-06-06 14:17 | XMS_ITS | Patient Health Record ---
Author Organization [facility] [address] Address [address] [place] [address] Care Team Providers Care Supervisor Cell Room Name Role Phone KOMAL NOLASCO Unavailable [phone] ABRAMALEX HINES Unavailable [phone] Allergies No Known Allergies Reason For Referral [...] Notes Problem Obesity due to excess calories (058415659) Other obesity due to excess calories (E66.09) Active confirmed Problem Overweight (431130478) Overweight (E66.3) Active confirmed Problem Mixed hyperlipidemia (784489025) Mixed hyperlipidemia (E78.2) Active confirmed Problem Essential hypertension (02270446) Essential (primary) hypertension (I10) Active confirmed Problem Acquired hypothyroidism (688869053) Acquired hypothyroidism (E03.9) Active confirmed Problem Body mass index 30+ - obesity (222170239) Body mass index [BMI] 30.0-30.9, adult (Z68.30) Active confirmed Vital Signs Heart Rate 86 /min 04/18/2025 Oximetry 99 % 04/18/2025 Blood pressure diastolic 80 mm Hg 04/18/2025 Height 68 in 04/18/2025 Blood pressure systolic 106 mm Hg 04/18/2025 Weight 180 lbs 04/18/2025 BMI 27.37 kg/m2 04/18/2025 Encounters Encounter Location Date Provider Diagnosis [facility] [address] [address] 06/27/2024 KOMAL NOLASCO BMI 27.0-27.9,adult Z68.27 ; Overweight (BMI 25.0-29.9) E66.3 ; Essential (primary) hypertension I10 and Acquired hypothyroidism E03.9 [facility] [address] [address] 08/01/2024 KOMAL NOLASCO Acquired hypothyroid ism E03.9 ; Essential (primary) hypertension I10 ; Other obesity due to excess calories E66.09 and Body mass index [BMI] 27.0-27.9, adult Z68.27 [facility] [address] [address] 09/28/2024 KOMAL NOLASCO Other obesity due to excess calories E66.09 ; Acquired hypothyroidism E03.9 and Essential (primary) hypertension I10 [facility] [address] [address] 12/05/2024 ALEX BIRKS Overweight E66.3 ; B [place] 26.0-26.9,adult Z68.26 ; Nutritional counseling Z71.3 ; Essential (primary) hypertension I10 ; Acquired hypothyroidism E03.9 and Mixed hyperlipidemia E78.2 [facility] [address] [address] 03/05/2025 ALEX BIRKS Overweight E66.3 ; B [place] 27.0-27.9,adult Z68.27 ; Nutritional counseling Z71.3 ; Essential (primary) hypertension I10 ; Acquired hypothyroidism E03.9 and Mixed hyperlipidemia E78.2 [facility] [address] [address] 04/18/2025 ALEX BIRKS Overweight E66.3 ; B [place] 27.0-27.9,adult Z68.27 ; Nutritional counseling Z71.3 ; Essential (primary) hypertension I10 ; Acquired hypothyroidism E03.9 and Mixed hyperlipidemia E78.[address] [facility] [address] [place] [address] 07/27/2024 KOMAL NOLASCO [facility] [address] [address] 02/14/2025 ALEX MOURA [facility] [address] [facility] [address] [place] [address] 03/05/2025 KOMAL NOLASCO [facility] [address] [facility] [address] [place] [address] 04/23/2025 ALEX MOURA Overweight E66.3 Assessments Encounter Date Diagnosis (ICD Code) Assessment Notes Treatment Notes Treatment Clinical Notes Section Notes 06/27/2024 BMI 27.0-27.9,adult (ICD-10 - Z68.27) 49-year-old [...] diet and exercise, patient is active at [employer]. Reviewed goals of hydration with 60 to [...] Dictation was accomplished with the use of Dragon voice recognition software, which is prone to [...] diet and exercise, patient is active at [employer]. Reviewed goals of hydration with 60 to [...] Dictation was accomplished with the use of Biomonde voice recognition software, which is prone to [...] diet and exercise, patient is active at [employer]. Reviewed goals of hydration with 60 to [...] Dictation was accomplished with the use of Biomonde voice recognition software, which is prone to [...] diet and exercise, patient is active at [employer]. Reviewed goals of hydration with 60 to [...] Dictation was accomplished with the use of Biomonde voice recognition software, which is prone to [...] diet and exercise, patient is active at [employer]. Reviewed goals of hydration with 60 to [...] Dictation was accomplished with the use of Biomonde voice recognition software, which is prone to [...] diet and exercise, patient is active at [employer]. Reviewed goals of hydration with 60 to [...] Dictation was accomplished with the use of Biomonde voice recognition software, which is prone to [...] diet and exercise, patient is active at [employer]. Reviewed goals of hydration with 60 to [...] Dictation was accomplished with the use of Biomonde voice recognition software, which is prone to [...] diet and exercise, patient is active at [employer]. Reviewed goals of hydration with 60 to [...] Dictation was accomplished with the use of Biomonde voice recognition software, which is prone to [...] diet and exercise, patient is active at [employer]. Reviewed goals of hydration with 60 to [...] Dictation was accomplished with the use of Biomonde voice recognition software, which is prone to [...] weekly and begin a [employer]. 06/27/2024 Acquired hypothyroidism (ICD-10 - E03.9) 49-year-old [...] diet and exercise, patient is active at [employer]. Reviewed goals of hydration with 60 to [...] Dictation was accomplished with the use of Biomonde voice recognition software, which is prone to [...] diet and exercise, patient is active at [employer]. Reviewed goals of hydration with 60 to [...] Dictation was accomplished with the use of Biomon[employer] voice recognition software, which is prone to [...] diet and exercise, patient is active at [employer]. Reviewed goals of hydration with 60 to [...] Dictation was accomplished with the use of Bi[employer] voice recognition software, which is prone to [...] diet and exercise, patient is active at [employer]. Reviewed goals of hydration with 60 to [...] Dictation was accomplished with the use of Biomon[employer] voice recognition software, which is prone to [...] diet and exercise, patient is active at [employer]. Reviewed goals of hydration with 60 to [...] Dictation was accomplished with the use of Biomonde voice recognition software, which is prone to [...] diet and exercise, patient is active at [employer]. Reviewed goals of hydration with 60 to [...] Dictation was accomplished with the use of Biomonde voice recognition software, which is prone to [...] diet and exercise, patient is active at [employer]. Reviewed goals of hydration with 60 to [...] Dictation was accomplished with the use of Bi[employer]de voice recognition software, which is prone to [...] diet and exercise, patient is active at [employer]. Reviewed goals of hydration with 60 to [...] Dictation was accomplished with the use of Biomonde voice recognition software, which is prone to [...] diet and exercise, patient is active at [employer]. Reviewed goals of hydration with 60 to [...] Dictation was accomplished with the use of Biomonde voice recognition software, which is prone to medical misidentifications and grammatical errors. This are unintentional and the practitioner does try to identify and correct these, but some could still be present. Please do not hesitate to contact practitioner for clarification. Plan Of Treatment Next Appt Details Provider Name:ALEX MOURA , 07/26/2025 09:30:00 AM, [address] [facility], [facility] [address], [place], [address], Insurance Providers Payer Name Payer Address Payer Phone Subscriber Number Group Number Insured Name Patient Relationship to Insured Coverage Start Date Coverage End Date [facility] [address] [place] [address] [id number] KATELYNN DAVIS Self - patient is the insured 1 Medical (General) History Medical History History ICD Code Hypertension Thyroid disease Weight change Surgical History Surgery Date(Month/Year) Appendectomy [place] teeth removal
--- OUTSIDE RECORDS SUMMARY | 2025-06-06 14:18 | XMS_ITS | Patient Health Record ---
Author Organization [facility] Address [address] [place] [address] Care Team Providers Care Volunteer Fire Fighter Name Role Phone Clara PACHECO, Samantha Primary Care Provider Braulio Reyes Jr Unavailable [phone] Allergies No Known Allergies Reason For Referral [...] Status W/U Status Risk Notes Problem Crohn (1735873) Crohn's disease of large intestine with unspecified complications (K50.119) Active confirmed Problem 7905997 Crohn's disease of large intestine with complication (K50.119) Active confirmed Plan Of Treatment Pending Test Test Name Order Date TSH 06/18/2011 CBC, Platelet; No Differential 1 ESR 06/18/2011 Future Test Test Name Order Date COLONOSCOPY 11/12/2021 Insurance Providers Payer Name Payer Address Payer Phone Subscriber Number Group Number Insured Name Patient Relationship to Insured Coverage Start Date Coverage End Date [facility] [address] [place] [phone] [id number] KATELYNN DAVIS Self - patient is the [...]
== END 2025-06-06 14:51 | disposition home or self-care (01) ==
LOC: HO.HMCC 13:24
PROVIDERS: PCP Internal Medicine; Visit Provider Internal Medicine
DX: Z00.00 Encounter for general adult medical examination without abnormal findings (principal); D69.3 Immune thrombocytopenic purpura; E78.5 Hyperlipidemia, unspecified; I25.10 Atherosclerotic heart disease of native coronary artery without angina pectoris; I10 Essential (primary) hypertension; E03.8 Other specified hypothyroidism; E06.3 Autoimmune thyroiditis; M83.9 Adult osteomalacia, unspecified; Z87.442 Personal history of urinary calculi

== ENCOUNTER 2025-09-06 11:31 | Outpatient (REF) | payer OTHER, SELFPAY ==
--- OUTSIDE RECORDS SUMMARY | 2024-11-21 03:30 | XMS_ITS ---
Author Organization [facility] [address] Address [address] [place] [address] Care Team Providers Care Caser In Name Role Phone BROWNE, KOMAL Unavailable [phone] ALEX MOURA Unavailable [phone] Encounters Encounter Location Date Provider Diagnosis [facility] [address] [place] [address] 11/21/2024 ALEX MOURA Plan Of Treatment No Information Progress Notes * KATELYNN DAVISDOB:1975 (50 yo M)Acc No.[id number]:11/21/2024 Patient: Pamela FOLEY KATELYNN Provider: Rod MOURA :1975 A ge:49 Y S ex:Male Date:11/21/2024 Address:[address] [place], [place] [id number] * Electronic signature of YAMIL MOURA PA-C, [id number] on 09/06/2025 at 05:50 PM EST Sign off status: Pending * Provider: Rod MOURA Date: 0 11/21/2024 Generated for Hattiei charles/Zenaida/eTransmitting on: 1 11/06/2024 05:50 PM EST
--- OUTSIDE RECORDS SUMMARY | 2024-11-28 04:15 | XMS_ITS ---
Author Organization [facility] [address] Address [address] [place] [address] Care Team Providers Care Accounting Intern Name Role Phone BROWNE, KOMAL Unavailable [phone] ALEX MOURA Unavailable [phone] Encounters Encounter Location Date Provider Diagnosis [facility] [address] [place] [address] 11/28/2024 ALEX MOURA Plan Of Treatment No Information Progress Notes * KATELYNN DAVISDOB:1975 (50 yo M)Acc No.[id number]:11/28/2024 Patient: TEGAN YEIC Provider: Rod MOURA :1975 A ge:49 Y S ex:Male Date:11/28/2024 Address:[address] [place], [place] [id number] * Electronic signature of YAMIL MOURA PA-C, [id number] on 09/06/2025 at 05:50 PM EST Sign off status: Pending * Provider: Rod MOURA Date: 0 11/28/2024 Generated for Hattiei charles/Zenaida/eTransmitting on: 1 11/06/2024 05:50 PM EST
--- NOTE | ~2025-09-06 | US_ITS ---
CLINICAL HISTORY: N20.0 - Calculus of kidney US of kidneys Comparison: US - US RENAL BI - 11/20/24 09:58 EST Findings: Right kidney is normal in size, echogenicity and morphology, 10.2 cm in length. 7 mm simple cyst in the lower pole. Nonshadowing 2 echogenic foci 3 mm each in the lower pole, no twinkling artifact. No hydronephrosis. Left kidney is normal in size, echogenicity and morphology, 10.7 cm in length. No mass or hydronephrosis. Nonshadowing echogenic focus 4 mm in the lower pole, no twinkling artifact. Limited color Doppler demonstrates unremarkable bilateral blood flow. Impression: Equivocal nonobstructing bilateral nephrolithiasis. This document has been electronically signed by: Nancy Michaud MD on 09/06/2025 16:27:13
--- OUTSIDE RECORDS SUMMARY | 2025-09-06 17:51 | XMS_ITS | Patient Health Record ---
Author Organization [facility] [address] Address [address] [place] [address] Care Team Providers Care Babysitter Name Role Phone KOMAL NOLASCO Unavailable [phone] ABRAMALEX HINES Unavailable [phone] Allergies No Known Allergies Reason For Referral No Information Medications Medication SIG (Take, Route, Frequency, Duration) Notes Start Date End Date Status Zepbound 7.5 MG/0.5ML Solution Auto-injector Inject 7.5 mg Subcutaneous weekly; Duration: 28 days Active Levothyroxine Sodium 150 MCG Tablet 1 tablet in the morning on an empty stomach Orally Once a day Active Ferrous Sulfate 325 (65 Fe) MG Tablet 1 tablet Orally Three times a Week Active Ondansetron HCl 4 MG Tablet 1 tablet as needed for nausea Orally Once a day; Duration: 30 days 04/18/2024 Active Losartan Potassium 50 MG Tablet 1 tablet Orally Once a day Active Rosuvastatin Calcium 40 MG Tablet 1 tablet Orally Once a day Active 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 [facility] Problems Problem Type SNOMED Code ICD Code Onset Dates Problem Status W/U Status Risk Notes Problem Obesity due to excess calories (754193054) Other obesity due to excess calories (E66.09) Active confirmed Problem Overweight (473163406) Overweight (E66.3) Active confirmed Problem Mixed hyperlipidemia (334114404) Mixed hyperlipidemia (E78.2) Active confirmed Problem Essential hypertension (61039358) Essential (primary) hypertension (I10) Active confirmed Problem Acquired hypothyroidism (533048945) Acquired hypothyroidism (E03.9) Active confirmed Problem Body mass index 30+ - obesity (801767740) Body mass index [BMI] 30.0-30.9, adult (Z68.30) Active confirmed Vital Signs Heart Rate 91 /min 07/26/2025 Oximetry 97 % 07/26/2025 Blood pressure diastolic 88 mm Hg 07/26/2025 Height 68 in 07/26/2025 Blood pressure systolic 124 mm Hg 07/26/2025 Weight 183 lbs 07/26/2025 BMI 27.82 kg/m2 07/26/2025 Encounters Encounter Location Date Provider Diagnosis [facility] [address] [address] 09/28/2024 KOMAL NOLASCO Other obesity due to excess calories E66.09 ; Acquired hypothyroidism E03.9 and Essential (primary) hypertension I10 [facility] [address] [address] 12/05/2024 ALEX BIRKS Overweight E66.3 ; B AR 26.0-26.9,adult Z68.26 ; Nutritional counseling Z71.3 ; Essential (primary) hypertension I10 ; Acquired hypothyroidism E03.9 and Mixed hyperlipidemia E78.2 [facility] [address] [address] 03/05/2025 ALEX BIRKS Overweight E66.3 ; B AR 27.0-27.9,adult Z68.27 ; Nutritional counseling Z71.3 ; Essential (primary) hypertension I10 ; Acquired hypothyroidism E03.9 and Mixed hyperlipidemia E78.2 [facility] [address] [address] 04/18/2025 ALEX BIRKS Overweight E66.3 ; B AR 27.0-27.9,adult Z68.27 ; Nutritional counseling Z71.3 ; Essential (primary) hypertension I10 ; Acquired hypothyroidism E03.9 and Mixed hyperlipidemia E78.2 [facility] [address] [address] 07/26/2025 ALEX BIRKS Overweight E66.3 ; B AR 27.0-27.9,adult Z68.27 ; Nutritional counseling Z71.3 ; Essential (primary) hypertension I10 ; Acquired hypothyroidism E03.9 and Mixed hyperlipidemia E78.2 [facility] [address] [address] 02/14/2025 ALEX MOURA [facility] [address] [address] 03/05/2025 KOMAL NOLASCO [facility] [address] [address] 04/23/2025 ALEX MOURA Overweight E66.3 [facility] [address] [address] 06/27/2025 ALEX MOURA Overweight E66.3 Assessments Encounter Date Diagnosis (ICD Code) Assessment Notes Treatment Notes Treatment Clinical Notes Section Notes 09/28/2024 Other obesity due to excess calories [...] diet and exercise, patient is active at [facility]. Reviewed goals of hydration with 60 to [...] Dictation was accomplished with the use of [employer] voice recognition software, which is prone to [...] diet and exercise, patient is active at [facility]. Reviewed goals of hydration with 60 to [...] Dictation was accomplished with the use of [employer] voice recognition software, which is prone to [...] diet and exercise, patient is active at [facility]. Reviewed goals of hydration with 60 to [...] Dictation was accomplished with the use of [employer] voice recognition software, which is prone to [...] diet and exercise, patient is active at [facility]. Reviewed goals of hydration with 60 to [...] Dictation was accomplished with the use of [employer] voice recognition software, which is prone to [...] diet and exercise, patient is active at [facility]. Reviewed goals of hydration with 60 to [...] Dictation was accomplished with the use of [employer] voice recognition software, which is prone to medical misidentifications and grammatical errors. This are unintentional and the practitioner does try to identify and correct these, but some could still be present. Please do not hesitate to contact practitioner for clarification. 04/23/2025 Overweight (ICD-10 - E66.3) 06/27/2025 Overweight (ICD-10 - E66.3) 07/26/2025 Overweight (ICD-10 - E66.3) Patient is here [...] diet and exercise, patient is active at [facility]. Reviewed goals of hydration with 60 to [...] weekly and follow-up in approximately 3 months. 07/26/2025: Weight 183 pounds, BMI 27.82. Seca scan completed and discussed results with the patient. Slight increase of weight by 3 pounds since last visit. On body composition analysis fat mass has been stable at 45 pounds. He has had an increase of muscle mass by 1.5 pounds. Now in high composition. Visceral adiposity is down from 2.8 to 2.3 L. Currently on Zepbound 5 mg weekly. Tolerating well. Has noticed a reduction of appetite suppression. He is increasing weight training. Utilizing twice weekly testosterone supplementation with primary care. Plan is to increase dose 7.5 mg and follow-up in approximately 3 months. # Hypertension: Blood pressure stable at 124/88. Continue losartan 50 mg once daily. # [...] Dictation was accomplished with the use of [employer] voice recognition software, which is prone to [...] diet and exercise, patient is active at [facility]. Reviewed goals of hydration with 60 to [...] Dictation was accomplished with the use of [employer] voice recognition software, which is prone to medical misidentifications and grammatical errors. This are unintentional and the practitioner does try to identify and correct these, but some could still be present. Please do not hesitate to contact practitioner for clarification. 04/18/2025 Nutritional counseling (ICD-10 - Z71.3) Patient [...] diet and exercise, patient is active at [facility]. Reviewed goals of hydration with 60 to [...] Dictation was accomplished with the use of [employer] voice recognition software, which is prone to medical misidentifications and grammatical errors. This are unintentional and the practitioner does try to identify and correct these, but some could still be present. Please do not hesitate to contact practitioner for clarification. 07/26/2025 BMI 27.0-27.9,adult (ICD-10 - Z68.27) Patient is [...] diet and exercise, patient is active at [facility]. Reviewed goals of hydration with 60 to [...] weekly and follow-up in approximately 3 months. 07/26/2025: Weight 183 pounds, BMI 27.82. Seca scan completed and discussed results with the patient. Slight increase of weight by 3 pounds since last visit. On body composition analysis fat mass has been stable at 45 pounds. He has had an increase of muscle mass by 1.5 pounds. Now in high composition. Visceral adiposity is down from 2.8 to 2.3 L. Currently on Zepbound 5 mg weekly. Tolerating well. Has noticed a reduction of appetite suppression. He is increasing weight training. Utilizing twice weekly testosterone supplementation with primary care. Plan is to increase dose 7.5 mg and follow-up in approximately 3 months. # Hypertension: Blood pressure stable at 124/88. Continue losartan 50 mg once daily. # [...] Dictation was accomplished with the use of [employer] voice recognition software, which is prone to [...] diet and exercise, patient is active at [facility]. Reviewed goals of hydration with 60 to [...] Dictation was accomplished with the use of [employer] voice recognition software, which is prone to [...] diet and exercise, patient is active at [facility]. Reviewed goals of hydration with 60 to [...] Dictation was accomplished with the use of [employer] voice recognition software, which is prone to [...] diet and exercise, patient is active at [facility]. Reviewed goals of hydration with 60 to [...] Dictation was accomplished with the use of [employer] voice recognition software, which is prone to [...] diet and exercise, patient is active at [facility]. Reviewed goals of hydration with 60 to [...] Dictation was accomplished with the use of [employer] voice recognition software, which is prone to [...] diet and exercise, patient is active at [facility]. Reviewed goals of hydration with 60 to [...] Dictation was accomplished with the use of [employer] voice recognition software, which is prone to medical misidentifications and grammatical errors. This are unintentional and the practitioner does try to identify and correct these, but some could still be present. Please do not hesitate to contact practitioner for clarification. 07/26/2025 Nutritional counseling (ICD-10 - Z71.3) Patient is [...] diet and exercise, patient is active at [facility]. Reviewed goals of hydration with 60 to [...] weekly and follow-up in approximately 3 months. 07/26/2025: Weight 183 pounds, BMI 27.82. Seca scan completed and discussed results with the patient. Slight increase of weight by 3 pounds since last visit. On body composition analysis fat mass has been stable at 45 pounds. He has had an increase of muscle mass by 1.5 pounds. Now in high composition. Visceral adiposity is down from 2.8 to 2.3 L. Currently on Zepbound 5 mg weekly. Tolerating well. Has noticed a reduction of appetite suppression. He is increasing weight training. Utilizing twice weekly testosterone supplementation with primary care. Plan is to increase dose 7.5 mg and follow-up in approximately 3 months. # Hypertension: Blood pressure stable at 124/88. Continue losartan 50 mg once daily. # [...] Dictation was accomplished with the use of [employer] voice recognition software, which is prone to medical misidentifications and grammatical errors. This are unintentional and the practitioner does try to identify and correct these, but some could still be present. Please do not hesitate to contact practitioner for clarification. 07/26/2025 Essential (primary) hypertension (ICD-10 - I10) Patient [...] diet and exercise, patient is active at [facility]. Reviewed goals of hydration with 60 to [...] weekly and follow-up in approximately 3 months. 07/26/2025: Weight 183 pounds, BMI 27.82. Seca scan completed and discussed results with the patient. Slight increase of weight by 3 pounds since last visit. On body composition analysis fat mass has been stable at 45 pounds. He has had an increase of muscle mass by 1.5 pounds. Now in high composition. Visceral adiposity is down from 2.8 to 2.3 L. Currently on Zepbound 5 mg weekly. Tolerating well. Has noticed a reduction of appetite suppression. He is increasing weight training. Utilizing twice weekly testosterone supplementation with primary care. Plan is to increase dose 7.5 mg and follow-up in approximately 3 months. # Hypertension: Blood pressure stable at 124/88. Continue losartan 50 mg once daily. # [...] Dictation was accomplished with the use of [employer] voice recognition software, which is prone to [...] diet and exercise, patient is active at [facility]. Reviewed goals of hydration with 60 to [...] Dictation was accomplished with the use of [employer] voice recognition software, which is prone to [...] diet and exercise, patient is active at [facility]. Reviewed goals of hydration with 60 to [...] Dictation was accomplished with the use of [employer] voice recognition software, which is prone to [...] diet and exercise, patient is active at [facility]. Reviewed goals of hydration with 60 to [...] Dictation was accomplished with the use of [employer] voice recognition software, which is prone to [...] diet and exercise, patient is active at [facility]. Reviewed goals of hydration with 60 to [...] Dictation was accomplished with the use of [employer] voice recognition software, which is prone to [...] diet and exercise, patient is active at [facility]. Reviewed goals of hydration with 60 to [...] Dictation was accomplished with the use of [employer] voice recognition software, which is prone to [...] diet and exercise, patient is active at [facility]. Reviewed goals of hydration with 60 to [...] Dictation was accomplished with the use of [employer] voice recognition software, which is prone to medical misidentifications and grammatical errors. This are unintentional and the practitioner does try to identify and correct these, but some could still be present. Please do not hesitate to contact practitioner for clarification. 07/26/2025 Acquired hypothyroidism (ICD-10 - E03.9) Patient is [...] diet and exercise, patient is active at [facility]. Reviewed goals of hydration with 60 to [...] weekly and follow-up in approximately 3 months. 07/26/2025: Weight 183 pounds, BMI 27.82. Seca scan completed and discussed results with the patient. Slight increase of weight by 3 pounds since last visit. On body composition analysis fat mass has been stable at 45 pounds. He has had an increase of muscle mass by 1.5 pounds. Now in high composition. Visceral adiposity is down from 2.8 to 2.3 L. Currently on Zepbound 5 mg weekly. Tolerating well. Has noticed a reduction of appetite suppression. He is increasing weight training. Utilizing twice weekly testosterone supplementation with primary care. Plan is to increase dose 7.5 mg and follow-up in approximately 3 months. # Hypertension: Blood pressure stable at 124/88. Continue losartan 50 mg once daily. # [...] Dictation was accomplished with the use of [employer] voice recognition software, which is prone to medical misidentifications and grammatical errors. This are unintentional and the practitioner does try to identify and correct these, but some could still be present. Please do not hesitate to contact practitioner for clarification. 07/26/2025 Mixed hyperlipidemia (ICD-10 - E78.2) Patient is [...] diet and exercise, patient is active at [facility]. Reviewed goals of hydration with 60 to [...] weekly and follow-up in approximately 3 months. 07/26/2025: Weight 183 pounds, BMI 27.82. Seca scan completed and discussed results with the patient. Slight increase of weight by 3 pounds since last visit. On body composition analysis fat mass has been stable at 45 pounds. He has had an increase of muscle mass by 1.5 pounds. Now in high composition. Visceral adiposity is down from 2.8 to 2.3 L. Currently on Zepbound 5 mg weekly. Tolerating well. Has noticed a reduction of appetite suppression. He is increasing weight training. Utilizing twice weekly testosterone supplementation with primary care. Plan is to increase dose 7.5 mg and follow-up in approximately 3 months. # Hypertension: Blood pressure stable at 124/88. Continue losartan 50 mg once daily. # [...] Dictation was accomplished with the use of [employer] voice recognition software, which is prone to medical misidentifications and grammatical errors. This are unintentional and the practitioner does try to identify and correct these, but some could still be present. Please do not hesitate to contact practitioner for clarification. Plan Of Treatment No Information Insurance Providers Payer Name Payer Address Payer Phone Subscriber Number Group Number Insured Name Patient Relationship to Insured Coverage Start Date Coverage End Date [facility] [address] [place] [address] [id number] KATELYNN DAVIS Self - patient is the insured 1 Medical (General) History Medical History History ICD Code Hypertension Thyroid disease Weight change Surgical History Surgery Date(Month/Year) Appendectomy [place] teeth removal
--- OUTSIDE RECORDS SUMMARY | 2025-09-06 17:51 | XMS_ITS | Patient Health Record ---
Author Organization [facility] Address [address] [place] [id number] Care Team Providers Care Inset Cutter Name Role Phone Clara PACHECO, Samantha Primary Care Provider Braulio Reyes Jr Unavailable Allergies No Known Allergies Reason For Referral No Information Medications Medication SIG (Take, Route, Frequency, Duration) Notes Start Date End Date Status Losartan Potassium 50 MG Tablet 1 tablet Orally Once a day; Duration: 30 day(s) 11/12/2021 Active Rosuvastatin Calcium 40 MG Tablet TAKE 1 TABLET BY MOUTH DAILY Oral; Duration: 90 Active Synthroid 125 MCG Tablet TAKE 1 TABLET B Y MOUTH DAILY Diagnosis Unavailable Oral; Duration: 30 Active Apriso 0.375 GM Capsule Extended Release 24 Hour 4 capsules in the morning Orally Once a day; Duration: 30 day(s) 11/12/2021 Active MiraLax (colon prep) 17 GM/SCOOP Powder mixed with Gatorade or Crystal Light Orally begin at 5:00 p.m. the day before the procedure; Duration: 1 day 11/12/2021 Active Vitamin B12 1000 MCG Tablet Extended Release 1 tablet Orally Once a day; Duration: 30 day(s) 11/12/2021 Active Vitamin D3 10 MCG (400 UNIT) Tablet 1 tablet Orally Once a day; Duration: 30 day(s) 11/12/2021 Active Calcium 500 MG Tablet 1 tablet with meal s Orally Twice a day; Duration: 30 day(s) 11/12/2021 Active Co Q 10 60 MG Capsule as directed Orally 2 Active Immunizations Vaccine Route Administration Date Status Comme nts Influenza Unknown 06/05/2020 Administered Social History Social History Drugs/Alcohol: Social Info Question Answer Notes Alcohol Screen Did you have a drink containing alcohol in the past year? No Points 0 Interpretation Negative Additional Details Category Social Info Options Details Miscellaneous: Marital status: single Occupation: works full-time Section Notes: Occasional alcohol. Single, valdes. Occasional alcohol. Problems Problem Type SNOMED Code ICD Code Onset Dates Problem Status W/U Status Risk Notes Problem Crohn's disease of large bowel (3854669) Crohn's disease of large intestine with unspecified complications (K50.119) Active confirmed Problem Crohn's disease of large bowel (1683309) Crohn's disease of large intestine with complication (K50.119) Active confirmed Plan Of Treatment Pending Test Test Name Order Date TSH 06/18/2011 CBC, Platelet; No Differential 1 ESR 06/18/2011 Future Test Test Name Order Date COLONOSCOPY 11/12/2021 Insurance Providers Payer Name Payer Address Payer Phone Subscriber Number Group Number Insured Name Patient Relationship to Insured Coverage Start Date Coverage End Date [facility] [address] [place] [phone] [id number] KATELYNN DAVIS Self - patient is the [...]
== END 2025-09-06 11:32 | disposition home or self-care (01) ==
LOC: HO.HMGCX 11:31
PROVIDERS: PCP Internal Medicine; Visit Provider Urology
DX: N20.0 Calculus of kidney (principal)
CPT/HCPCS: 76775

== ENCOUNTER → 2025-09-06 11:34 | Outpatient (BNV) | payer OTHER, SELFPAY | PROVIDERS: PCP Internal Medicine; Visit Provider Radiology Diagnostic Radiology | DX: N20.0 Calculus of kidney (principal) | CPT/HCPCS: 76775 ==

== ENCOUNTER 2025-09-25 08:08 | Outpatient (AMB) | payer OTHER, SELFPAY ==
--- NOTE | 2025-09-25 08:05 | A.OFFPC_ITS ---
Intake Visit Reasons: telehealth visit to discuss b/p medication Intake Note: Pt is having a telehealth visit to discuss b/p medication Allergies environmental allergies Adverse Reaction (Verified 06/06/25 14:11) Itchy Eyes Medication List - Last Reconciled 09/25/25 by Samantha Elizabeth MD cholecalciferol (vitamin D3) 50 mcg PO DAILY pyridoxine (vitamin B6) 50 mg PO DAILY 90 days rosuvastatin 40 mg PO DAILY Synthroid (levothyroxine) 150 mcg PO DAILY NS testosterone 40mg/.4ml intramuscular twice a week tirzepatide (weight loss) (Zepbound) 5 mg subcut QWEEK Tobacco use date assessed: 09/25/25 Dental Screening Dental Screen Date: 09/25/25 Did you have a dental visit in the last 12 months?: Yes Did you have a dental problem in the last 6 months where you did not have access to dental care?: No Was dental information given to patient?: Patient has dentist HPI HPI Comments History of Present Illness Details History of Present Illness The patient is a 50-year-old male presenting by Telehealth for follow-up on medication management . He developed a rash on his genital areas that was initially thought to be a reaction to soap but worsened over time. A subsequent visit to a grocery manager, which included a biopsy, confirmed a diagnosis of lichen planus, which was attributed to his use of losartan. The patient was prescribed pimecrolimus 1% cream for about six weeks, which resolved the rash, and it has not recurred since. He notes the biopsy site took a long time to heal but did not get infected. Following the diagnosis, he stopped taking losartan in July. Regarding his blood pressure, the patient has been monitoring it multiple times a week since stopping losartan and reports it has been good, with only one elevated reading of approximately 145/80. He is not currently taking any medication for hypertension. He continues to take Zepbound 5 mg, testosterone, vitamin B6, vitamin D, rosuvastatin, and levothyroxine. 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 Other and unspecified hyperlipidemia Essential hypertension Coronary artery calcification seen on CAT scan Pseudofolliculitis barbae GERD (gastroesophageal reflux disease) Crohn's disease Dyslipidemia Surgical History Hx of LASIK H/O wisdom tooth extraction Hx of appendectomy Family History Father Myocardial infarction CVD (cardiovascular disease) Mother CVD (cardiovascular disease) Brother Hypothyroidism Substance use disorder Brother Substance use disorder Brother Substance use disorder Sister Substance use disorder Social History Housing: House Alcohol intake: current Alcohol intake frequency: holidays/special occasions only Patient Tobacco Use Status: Never used Tobacco e-Cigarette/Vaping Use: Never Used service: No Current occupational status: employed Sexual orientation: Lesbian/Jeter/Homosexual Cognitive needs: No Hearing needs: No Vision needs: Yes Questionnaire Thrive Questionnaire Date Thrive assessed: 04/19/25 I am a: Patient What is your living situation today?: I have a steady place to live Within the past 12 months, did the food you bought not last and you didn't have the money to get more?: Never true Within the past 12 months, did you worry whether your food would run out before you got money to buy more?: Never true Do you have trouble paying for medicines?: No Do you have trouble getting transportation to medical appointments?: No Do you have trouble paying your heating and electricity bill?: No Do you have trouble taking care of your child, family member or friend?: No Do you have trouble with day-to-day activities such as bathing, preparing meals, shopping, managing finances, etc.?: No Are you currently unemployed and looking for a job?: No Are you interested in more education?: No Please select the resources that you would like help with: None Currently or been in a relationship where the following occur: No concerns reported THRIVE Score: 0 LANE-[address] L[address]-7 Date LANE - 7 assessed: 05/25/24 Source: Developed by Drs. Manuel Rodriguez, Cortney Carl, Davidson Brody and colleagues, with an educational jonathon from [employer]. Review of Systems Narrative Review of Systems - Dermatologic: Reports history of a rash diagnosed as lichen planus, which has resolved. Denies current rash. - Cardiovascular: Reports one episode of elevated blood pressure of 145/80-s omething since July. Const All systems reviewed & are unremarkable except as noted in HPI and below Physical exam (Primary Care) Tobacco/Smoking Status: Tobacco use Status Tobacco use date assessed 09/25/25 09/25/25 08:06 Patient Tobacco Use Status Never used Tobacco 09/25/25 08:06 e-Cigarette/Vaping Use Never Used 09/25/25 08:06 Thrive Assessment: Date of Thrive Assessment Date Thrive assessed 04/19/25 09/25/25 08:06 Currently or been in a relationship where the following occur: No concerns reported Telehealth Telehealth Telehealth Platform: [employer] Location of provider rendering services: practice address Location of patient: address on file Patient Identification confirmed using: Name, : Yes Telehealth method: video Patient verbally consented to treatment: Yes Patient verbally consented to billing insurance company: Yes Patient informed of any privacy concerns related to visit: Yes Minutes spent on Phone/Video with Pt.: 15 Coding Level of Care Code Tele Est Pt Level 4 (31610) Diagnoses Essential hypertension I10 Lichen planus of glans penis L43.9 Assessment & Plan Assessment & Plan (1) Essential hypertension: Code(s): I10 - Essential (primary) hypertension Category: Medical (2) Lichen planus of glans penis: Code(s): L43.9 - Lichen planus, unspecified Category: Medical Plan Plan Patient was informed and verbally consented to the use of an ambient scribe for clinic note documentation during this visit. 1. Hypertension The patient has stopped losartan due to a dermatological side effect. His blood pressure is currently well-controlled without medication, likely due to the effects of Zepbound. Will continue to monitor blood pressure at home. If blood pressure is persistently above 130/80 mmHg, medication adjustments will be considered. 2. Lichen Planus, Drug-Induced The patient developed lichen planus, confirmed by biopsy, as a reaction to losartan. Losartan was discontinued in July, and he successfully used pimecrolimus 1% cream for six weeks, leading to the resolution of the rash. Will request the dermatology consult notes for review. 3. Long-Term (Current) Use Of Testosterone The patient continues regulated testosterone therapy, which can potentially elevate blood pressure. Will continue to monitor its effect on his blood pressure. The patient is due for fasting lab work, for which an order is already pending. He will complete these labs around October. His insurance may stop covering Zepbound, so he was advised to consider tapering the medication from weekly to every 10 days. His next annual physical is scheduled for May 2026
== END 2025-09-25 09:23 | disposition home or self-care (01) ==
LOC: HO.HMCC 08:08
PROVIDERS: PCP Internal Medicine; Visit Provider Internal Medicine
DX: I10 Essential (primary) hypertension (principal); L43.9 Lichen planus, unspecified

== ENCOUNTER 2025-09-28 08:43 | Outpatient (AMB) | payer OTHER, SELFPAY ==
--- NOTE | 2025-09-28 08:48 | MHC.OFFVIS ---
Intake Visit Reasons: 6M US/Litho(set) Intake Note: Reason for Visit: Ultrasound/Litholink Results Urology Meds: Vitamin B6, Testosterone Blood Thinners: None Labs: None Litholink: Completed 08/14/2025 Imaging: Renal Ultrasound- 09/06/2025 Last PVR: None Billet Examiner Required: No Accompanied by: Self / Same As Patient Allergies environmental allergies Adverse Reaction (Verified 09/28/25 08:49) Itchy Eyes HPI Comments Details: Toney is a very pleasant male. He is a patient of Dr. Elizabeth. He seen for the following urologic conditions - urethrocutaneous fistula - kidney stone concerns Six-month follow-up Litholink complete - high sodium, high calcium Discussed potential for using indapamide At this point he would like to hold off and complete imaging in six-month Nephrolithiasis Renal ultrasound - 12/12 No hydronephrosis. Nonobstructive 3 mm right renal stone. 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 Has leakage when urinate standing up 06/09 multilayer fistula closure PFS Medical History Lichen planus of glans penis History of lichen planus History of nephrolithiasis Overweight (BMI 25.0-29.9) History of fall Left anterior knee pain Vitamin D deficient osteomalacia Fatigue Benign paroxysmal vertigo, bilateral Penile lesion Personal history of COVID-19 Chronic ITP (idiopathic thrombocytopenia) Thiamine deficiency 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 Other and unspecified hyperlipidemia Essential hypertension Coronary artery calcification seen on CAT scan Pseudofolliculitis barbae GERD (gastroesophageal reflux disease) Crohn's disease Dyslipidemia Surgical History Hx of LASIK H/O wisdom tooth extraction Hx of appendectomy Family History Father Myocardial infarction CVD (cardiovascular disease) Mother CVD (cardiovascular disease) Brother Hypothyroidism Substance use disorder Brother Substance use disorder Brother Substance use disorder Sister Substance use disorder Social History Housing: House Alcohol intake: current Alcohol intake frequency: holidays/special occasions only Patient Tobacco Use Status: Never used Tobacco e-Cigarette/Vaping Use: Never Used service: No Current occupational status: employed Sexual orientation: Lesbian/Jeter/Homosexual Cognitive needs: No Hearing needs: No Vision needs: Yes Review of Systems Const Denies chills and Denies fever(s) Card Reports no additional complaints and Denies syncope Resp Denies cough GI Denies abdominal pain and Denies heartburn Reports as per HPI and Denies change in libido Neuro Denies syncope Psych Denies change in libido Endo Denies change in libido Physical Exam Const General: cooperative, healthy appearing, comfortable and no acute distress Orientation/consciousness: patient oriented x3 HEENT Face and sinus: Yes normal facial exam Mouth: moist mucous membranes Neck Neck: Yes normal visual inspection, Yes full ROM and Yes trachea midline Chest Chest palpation & inspection: normal inspection of the chest Resp Effort & Inspection: normal respiratory effort, able to speak in complete sentences and no respiratory distress GI Inspection: Yes normal to inspection Back/Spine/Pelvis Cervical Spine: normal cervical lordosis Thoracic/Lumbar Spine: thoracic and lumbar spine normal to inspection Skin General skin exam: no rashes or lesions noted Neuro General: patient oriented x3, gait normal, tone normal and moves all extremities Extrem General: Yes normal to inspection and Yes capillary refill normal Assessment & Plan Assessment & Plan (1) Hypercalciuria: Code(s): R82.994 - Hypercalciuria Category: Medical Plan Six-month follow-up imaging and repeat Uro risk Orders: Orders URORISK 6 Months Z87.442 - Personal history of urinary calculi XR KUB 6 Months Z87.442 - Personal history of urinary calculi Patient Instructions: This note is constructed using voice recognition software. While every effort has been made to ensure accuracy director of anesthesia services errors may have been included. Imaging studies, laboratory and physical exam results were discussed and reviewed in detail. No major barriers to patient understanding were identified. An opportunity to ask questions regarding the treatment plan was provided. All questions were answered. The patient expressed understanding and agreement with the above treatment plan. The patient is aware they should contact our office by phone for worsening of their current condition or the appearance of new urologic symptoms. Compliance is encouraged with any medications and followup testing that is ordered. It is a privilege to participate in the urologic care of your patient. If you have any questions or concerns regarding treatment for the above conditions, or other urologic issues, please do not hesitate to contact me. The office telephone contact is [phone]. Sincerely, Dr Dennis Rojas MD, [facility] - Urology Compassionate Specialist Care for the Genitourinary System Coding Level of Care Code Est Pt Level 3 (26410) Add On Problem Visit Only Diagnoses Hypercalciuria R82.994
== END 2025-09-28 09:56 | disposition home or self-care (01) ==
LOC: HO.HUSH 08:44
PROVIDERS: PCP Internal Medicine; Visit Provider Urology
DX: R82.994 Hypercalciuria (principal)
CPT/HCPCS: 99213; G2211